=== PATIENT | female | born 1950 | race African-American/Black ===

== ENCOUNTER → 2016-08-28 | Outpatient (CLI) | payer MEDICARE, BC, OTHER ==
[2015-08-14 03:29] VITALS: BP 94/55
[~2016-08-28] MED LIST: AMLO5TAB2 PO; ASPI325T4 PO; ATOR20TA58 PO; CINA30TA PO; DIPH1TAB PO; DOCU100T5 PO; ERGO500012 PO; FAMO-63 PO; GABA300S PO; HYDR-2869 PO; INSU100C SQ; LATA2.5D3 OU; LEVO500T38 PO; LISI-334 PO; MONT10TA6 PO; OXYC-323 PO; SEVE800T9 PO; SIMV40TA3 PO; VIT1TABL57 PO
--- NOTE | 2016-08-28 11:57 | RAD ---
PROCEDURE MR of the right shoulder HISTORY Pain for 2 months. TECHNIQUE Standard noncontrast images are obtained. COMPARISON FINDINGS Acromioclavicular joint is degenerative. Complete full-thickness rupture of supraspinatus and infraspinatus tendons. Severe retraction to the superior labrum. Severe muscle atrophy and severe fatty infiltration. High-grade if not complete subscapularis tendon tear. Moderate subdeltoid bursal effusion. Severe glenohumeral joint primary osteoarthritis. Circumferential labral degeneration and tearing. Biceps tendon is not visualized. No acute fracture. Small joint effusion. Reactive cystic type change at the greater tuberosity. No evidence of aggressive bone destruction. No evidence of acute fracture. IMPRESSION 1. Massive retracted rotator cuff tear with severe atrophy. 2. Severe primary osteoarthritis of the glenohumeral joint with labral degeneration and tearing. 3. Nonvisualized biceps tendon. Electronically signed by: Gerald Dominguez MD (Aug 28, 2016 11:55:58)
== END | disposition home or self-care (01) ==
LOC: MRI 10:18
PROVIDERS: ATTEND Internal Medicine
DX: M75.81 Other shoulder lesions, right shoulder (principal); M19.011 Primary osteoarthritis, right shoulder
CPT/HCPCS: 73221

== ENCOUNTER → 2016-10-23 | Outpatient (CLI) | payer MEDICARE, BC, OTHER ==
[2015-08-14 03:29] VITALS: BP 94/55
--- NOTE | 2016-10-23 13:52 | RAD ---
DATE: 10/23/2016 EXAM: DIGITAL SCREEN BILAT W/CAD HISTORY: Screening. Note is made of the positive family history for breast malignancy COMPARISON: 06/21/2015 This study was interpreted with the benefit of Computerized Aided Detection (CAD). FINDINGS: The breast parenchyma is primarily fatty replaced. Breast parenchyma level density A.. There has not been a significant change in the appearance of the breasts compared to the previous exam IMPRESSION: Benign findings BI-RADS CATEGORY: 2 BENIGN FINDING(S) RECOMMENDED FOLLOW-UP: 12M 12 MONTH FOLLOW-UP PQRS compliance statement: Patient information was entered into a reminder system with a target due date 10/23/2017 for the next mammogram. Mammography is a sensitive method for finding small breast cancers, but it does not detect them all and is not a substitute for careful clinical examination. A negative mammogram does not negate a clinically suspicious finding and should not result in delay in biopsying a clinically suspicious abnormality. "Our facility is accredited by the [employer] Mammography Program."
== END | disposition home or self-care (01) ==
LOC: MAMMO 12:47
PROVIDERS: ATTEND Internal Medicine
DX: Z12.31 Encounter for screening mammogram for malignant neoplasm of breast (principal)
CPT/HCPCS: G0202; 77067

== ENCOUNTER 2017-05-31 10:31 | Inpatient (IN) | payer MEDICARE, BC, OTHER ==
[~2017-05-31] VITALS: Ht 157.5 cm; Wt 86.2 kg
[~2017-05-31 10:31] MED LIST changes: -ASPI325T4 PO; +ASPI325T8 PO; -CINA30TA PO; +CINA30TA2 PO; -ERGO500012 PO; +ERGO500027 PO; -LEVO500T38 PO; +LEVO500T59 PO
[2017-05-31 11:09] LABS: BASO % 0 % (0-3); EOS % 2 % (0-3); HEMOGLOBIN 11.1 g/dL (12.0-15.5); LYMPH # 0.8 x10^3/uL (1.0-4.8); LYMPH % 10 % (24-48); MEAN CORPUSCULAR HEMOGLOBIN 29 pg (25-35); MEAN CORPUSCULAR HGB CONC 32 g/dL (31-37); MEAN CORPUSCULAR VOLUME 90 fL (79-100); MONO % 10 % (0-9); NEUT % 78 % (31-73); PLATELET COUNT 253 x10^3/uL (140-400); RED CELL DISTRIBUTION WIDTH 16.5 % (11.5-14.5); WHITE BLOOD COUNT 7.9 x10^3/uL (4.0-11.0)
[2017-05-31 11:15] LABS: CALCIUM 8.8 mg/dL (8.5-10.1); CREATININE 5.2 mg/dL (0.6-1.0); GFR 10.1
--- NOTE | 2017-05-31 11:16 | RAD ---
INDICATION: AMS COMPARISON: August 10, 2015 FINDINGS: Single view of chest obtained. Hypoexpanded examination is again seen. Repeat demonstration of fullness of the right pulmonary hilum which could be from prominent pulmonary artery within the region or lymph nodes within the region but this is similar to remote priors. No definite new region of focal airspace consolidation. Degenerative changes shoulders. Calcific atherosclerosis. IMPRESSION: Hypoexpanded exam without definite new region of focal airspace consolidation.
[2017-05-31 11:21] LABS: ALBUMIN 3.4 g/dL (3.4-5.0); ALBUMIN/GLOBULIN RATIO 0.7 (1.0-1.7); MAGNESIUM 2.2 mg/dL (1.8-2.4); TOTAL BILIRUBIN 0.2 mg/dL (0.2-1.0); TOTAL PROTEIN 8.5 g/dL (6.4-8.2)
--- NOTE | 2017-05-31 11:24 | RAD ---
CT of the head without contrast, 05/31/2017: History: Altered mental status, dialysis patient Comparison is made to a study from 08/11/2015. There is mild cerebral atrophy. There are mild patchy lucencies in the deep white matter bilaterally compatible with chronic ischemic change. The ventricles are within normal limits in size. There is no shift of the midline structures. There is no evidence of acute intracranial hemorrhage or mass effect. IMPRESSION: 1. Chronic findings as described above. 2. No acute intracranial abnormality is detected. PQRS Compliance Statement: One or more of the following individualized dose reduction techniques were utilized for this examination: 1. Automated exposure control 2. Adjustment of the mA and/or kV according to patient size 3. Use of iterative reconstruction technique
--- NOTE | 2017-05-31 11:27 | EKG ---
[facility] [address] [place] [address] Test Date: 2017-05-31 Test Time: 10:46:03 Pat Name: IVAN REEVES Department: Room: Gender: F Nursery Supervisor: : 1950 Requested By: WATSON RUIZ Order Number: [id number] Reading MD: Zakiya Adan Measurements Intervals [place] Rate: 93 P: 96 IA: 170 QRS: -13 QRSD: 98 T: 121 QT: 382 QTc: 478 Interpretive Statements SINUS RHYTHM LEFT ATRIAL ABNORMALITY LEFTWARD AXIS T ABNORMALITY IN HIGH LATERAL LEADS ABNORMAL ECG Electronically Signed On 06-02-2017 16:25:56 CDT by Zakiya Adan
[2017-05-31 11:41] LABS: PROTHROMBIN TIME PATIENT 12.2 SEC (11.7-14.0)
[2017-05-31 12:13] LABS: BILIRUBIN,URINE NEGATIVE (NEG); GLUCOSE,URINE NEGATIVE (NEG); NITRITE,URINE NEGATIVE (NEG); PROTEIN,URINE 30 mg/dL (NEG-TRACE); UROBILINOGEN,URINE 0.2 mg/dL (0.2 mg/dL)
[2017-05-31] MEDS ORDERED: DEXTROSE 50% 25 GM / 50ML DISP.SYRIN. IV PRN ×2 (12:15→14:30)
[2017-05-31] MEDS ORDERED: ONDANSETRON PF 4 MG/2 ML VIAL. IV PRN (12:15)
[2017-05-31] MEDS ORDERED: DEXTROSE 50% 25 GM / 50ML DISP.SYRIN. IV ONE (12:15)
[2017-05-31] MEDS ORDERED: ACETAMINOPHEN 325 MG TABLET. PO PRN (12:15)
[2017-05-31 12:40] LABS: BACTERIA,URINE 0 /HPF (0-FEW); RBC,URINE OCC /HPF (0-2); SQUAMOUS EPITHELIAL CELL,UR OCC /LPF
[2017-05-31 12:58] LABS: HCO3 ABG 27 mmol/L (21-28); PCO2 ABG 45 mmHg (35-46); PO2 ABG 70 mmHg (65-108); SAT O2 ABG 93 % (92-99)
--- NOTE | 2017-05-31 14:17 | PHYS DOC ---
Past Medical History Past Medical History: Diabetes-Type II, Renal Failure, Other Additional Past Medical Histor: END STAGE RENAL DISEASE, HYPERPARATHYROIDISM; possible Hep C Past Surgical History: Other Additional Past Surgical Histo: DIALYSIS SHUNT LEFT ARM Alcohol Use: None Drug Use: None Adult General Chief Complaint Chief Complaint: ALTERED MENTAL STATUS HPI HPI Patient is a 66 year old female who presents with altered mental status. Patient brought by EMS from dialysis where she had just completed her usual Saturday/Saturday/Saturday treatment. She reportedly was very confused and difficult to keep awake. She was able to complete dialysis, as reported by EMS. They gave dextrose for glucose in the 70s. She has history of worsening dementia per her daughter who is present at the bedside. Patient denies any pain at this time, denies any recent illness. Reports compliance with dialysis. Her PCP is Dr. Jennings. She lives at home with her daughter & granddaughters. Review of Systems Review of Systems Constitutional: Denies fever or chills Eyes: Denies change in visual acuity HENT: Denies nasal congestion or sore throat Respiratory: Denies cough or shortness of breath Cardiovascular: Denies chest pain or edema GI: Denies abdominal pain, nausea, vomiting, bloody stools or diarrhea : Denies dysuria or hematuria Musculoskeletal: Denies back pain or joint pain Integument: Denies rash or skin lesions Neurologic: Reports altered mental status. Denies headache, focal weakness or sensory changes Allergies Allergies Allergies Coded Allergies Type Severity Reaction Last Updated Verified codeine Allergy Intermediate 08/10/15 Yes Physical Exam Physical Exam Constitutional: obese, no acute distress, non-toxic appearance. somnolent. HENT: Normocephalic, atraumatic, bilateral external ears normal, oropharynx moist, nose normal. Eyes: PERRLA 4 mm bilaterally, EOMI, conjunctiva normal, no discharge. Neck: supple, no stridor. Cardiovascular: RRR, no murmurs, no edema. Lungs & Thorax: LCTAB, no wheezing, no respiratory distress. Abdomen: soft, nontender, nondistended. Skin: Warm, dry, no erythema, no rash. Back: No tenderness. Extremities: No tenderness, no edema. Neurologic: oriented X 3, poorly following commands but no definite cranial nerve deficit or extremity numbness/weakness, no focal deficits noted. somnolent, falls asleep while answering questions or participating in exam. Psychologic: unable to assess due to clinical condition. Current Patient Data Vital Signs Vital Signs Date Time Temp Pulse Resp B/P (MAP) Pulse Ox O2 Delivery O2 Flow Rate FiO2 05/31/17 11:05 91 16 100 05/31/17 10:35 98.1 161/97 (118) Room Air 98.1 Lab Values Laboratory Tests Test 05/31/17 10:35 05/31/17 10:40 Glucose (Fingerstick) 84 mg/dL (70-99) White Blood Count 7.9 x10^3/uL (4.0-11.0) Red Blood Count 3.90 x10^6/uL (3.50-5.40) Hemoglobin 11.1 g/dL (12.0-15.5) L Hematocrit 35.0 % (36.0-47.0) L Mean Corpuscular Volume 90 fL (79-100) Mean Corpuscular Hemoglobin 29 pg (25-35) Mean Corpuscular Hemoglobin Concent 32 g/dL (31-37) Red Cell Distribution Width 16.5 % (11.5-14.5) H Platelet Count 253 x10^3/uL (140-400) Neutrophils (%) (Auto) 78 % (31-73) H Lymphocytes (%) (Auto) 10 % (24-48) L Monocytes (%) (Auto) 10 % (0-9) H Eosinophils (%) (Auto) 2 % (0-3) Basophils (%) (Auto) 0 % (0-3) Neutrophils # (Auto) 6.1 x10^3uL (1.8-7.7) Lymphocytes # (Auto) 0.8 x10^3/uL (1.0-4.8) L Monocytes # (Auto) 0.8 x10^3/uL (0.0-1.1) Eosinophils # (Auto) 0.2 x10^3/uL (0.0-0.7) Basophils # (Auto) 0.0 x10^3/uL (0.0-0.2) Prothrombin Time 12.2 SEC (11.7-14.0) Prothrombin Time INR 1.0 (0.8-1.1) Sodium Level 141 mmol/L (136-145) Potassium Level 4.0 mmol/L (3.5-5.1) Chloride Level 98 mmol/L (98-107) Carbon Dioxide Level 31 mmol/L (21-32) Anion Gap 12 (6-14) Blood Urea Nitrogen 41 mg/dL (7-20) H Creatinine 5.2 mg/dL (0.6-1.0) H Estimated GFR (Cockcroft-Gault) 10.1 BUN/Creatinine Ratio 8 (6-20) Glucose Level 109 mg/dL (70-99) H Calcium Level 8.8 mg/dL (8.5-10.1) Magnesium Level 2.2 mg/dL (1.8-2.4) Total Bilirubin 0.2 mg/dL (0.2-1.0) Aspartate Amino Transferase (AST) 25 U/L (15-37) Alanine Aminotransferase (ALT) 32 U/L (14-59) Alkaline Phosphatase 147 U/L (46-116) H Troponin I Quantitative 0.029 ng/mL (0.000-0.055) QM-Pwi-K-Type Natriuretic Peptide 2956 pg/mL (0-124) H Total Protein 8.5 g/dL (6.4-8.2) H Albumin 3.4 g/dL (3.4-5.0) Albumin/Globulin Ratio 0.7 (1.0-1.7) L Laboratory Tests 05/31/17 10:40 Laboratory Tests 05/31/17 10:40 EKG EKG interpreted by co: [id number]: NSr rate 93, no acute ST/T wave changes, QTc prolonged 478 ms, otherwise normal intervals, no ectopy, some artifact.[] Radiology/Procedures Radiology/Procedures PROCEDURE: CT HEAD WO CONTRAST CT of the head without contrast, 05/31/2017: History: Altered mental status, dialysis patient Comparison is made to a study from 08/11/2015. There is mild cerebral atrophy. There are mild patchy lucencies in the deep white matter bilaterally compatible with chronic ischemic change. The ventricles are within normal limits in size. There is no shift of the midline structures. There is no evidence of acute intracranial hemorrhage or mass effect. IMPRESSION: 1. Chronic findings as described above. 2. No acute intracranial abnormality is detected. PQRS Compliance Statement: One or more of the following individualized dose reduction techniques were utilized for this examination: 1. Automated exposure control 2. Adjustment of the mA and/or kV according to patient size 3. Use of iterative reconstruction technique DICTATED and SIGNED BY: RUTHANN ASH MD DATE: 05/31/177 PROCEDURE: CHEST AP ONLY INDICATION: AMS COMPARISON: August 10, 2015 FINDINGS: Single view of chest obtained. Hypoexpanded examination is again seen. Repeat demonstration of fullness of the right pulmonary hilum which could be from prominent pulmonary artery within the region or lymph nodes within the region but this is similar to remote priors. No definite new region of focal airspace consolidation. Degenerative changes shoulders. Calcific atherosclerosis. IMPRESSION: Hypoexpanded exam without definite new region of focal airspace consolidation. DICTATED and SIGNED BY: DAPHNEY JOAQUIN MD DATE: 05/31/175[] Course & Med Decision Making Course & Med Decision Making Pertinent Labs and Imaging studies reviewed. (See chart for details) The patient presented with altered mental status from dialysis. Vitals stable. No definite focal logic deficit however she is quite somnolent. No acute findings on head CT. No significant lab abnormalities or infection identified. ABG shows no evidence of hypercarbia. Question whether this could be sleep apnea. I did recommend admission to the hospital for further evaluation and treatment. The patient is very reluctant but cannot stay awake long enough to appropriately sign out against medical advice. Daughter agrees with admission. Discussed with Dr. Jennings who recommends giving D50 as she has had symptoms of hypoglycemia with glucose in normal range, would target 125 rather than 80s. D50 given here with essentially no change in her mental status. Will consult Dr. Landers of nephrology. She is being admitted in guarded condition. [] Dragon Disclaimer Dragon Disclaimer This electronic medical record was generated, in whole or in part, using a voice recognition dictation system. Departure Departure Impression: Primary Impression: Altered mental status Additional Impression: ESRD (end stage renal disease) on dialysis Disposition: ADMITTED INPATIENT Condition: GUARDED Referrals: ESPERANZA JENNINGS MD (PCP) Problem Qualifiers WATSON RUIZ MD May 31, 2017 14:16
[2017-05-31] MEDS ORDERED: DIPHENOXYLATE/ATROPINE TABLET. PO PRN (14:30)
[2017-05-31] MEDS: ERGOCALCIFEROL (VITAMIN D2) 50,000 UNIT CAPSULE. PO SCH ×2 (14:30→17:30)
[2017-05-31 15:00] VITALS: BP 134/52
[2017-05-31] MEDS: ASPIRIN 325 MG TABLET PO SCH (15:00)
--- NOTE | 2017-05-31 15:42 | PDOC ---
Provider Note Provider Note H&P dictated.#[id number]. can d/c home tomorrow if stable. ESPERANZA JENNINGS MD May 31, 2017 15:42
--- NOTE | 2017-05-31 16:13 | HP ---
ADMIT DATE: 05/31/2017 LOCATION: [facility]. REASON FOR ADMISSION TO THE HOSPITAL: Altered mental status. HISTORY OF PRESENT ILLNESS: The patient is a 66-year-old female patient, is on dialysis 3 times a week, Saturday, Saturday and Saturday. She also used to have diabetes, but she is off insulin now, and she just completed her usual dialysis. She is very confused, difficult to be aroused. The patient was brought in to the hospital, and her sugar was 70. She was given D50 by the paramedics. In the ER, her condition was slowly waxing and waning. She is able to be arousable, but going back to sleep. The patient was admitted to the hospital for overnight observation and treatment. PAST MEDICAL HISTORY: Has history of end-stage renal disease, hypertension, hyperlipidemia, legal blindness, history of insulin-dependent diabetes, now she is not on any medications. PAST SURGICAL HISTORY: AV shunt. She is blind in one eye. ALLERGIES: CODEINE. MEDICATIONS AT HOME: The patient is on Percocet 5/325 q.6, p.r.n., amlodipine 5 mg daily, aspirin 325 daily, atorvastatin 20 mg daily, Lomotil daily, vitamin D 50,000 units, Pepcid 20 mg daily, hydralazine 50 mg 3 times daily, lisinopril 20 mg daily, Singulair 10 mg daily, Renvela 3 times a day with meals and she is on latanoprost eyedrops, right eye. PERSONAL HISTORY: Used to be a smoker in the past, has not smoked recently. Denies alcohol or street drugs. She is on wheelchair level of activity and goes to dialysis. REVIEW OF SYMPTOMS: Denies any chest pain, shortness of breath. She is seen in the hospital at 3:00. She is back to her baseline, talking and joking around. VITAL SIGNS: At the time of admission shows a temperature 98, pulse 89, respirations 20, blood pressure 134/52, 100% on room air. HEENT: Head is atraumatic. The patient is blind in the right eye, had some vision in the left eye. Oral cavity: No congestion. NECK: Supple. Thyroid not enlarged. JVD not elevated. CHEST: Symmetrical. CARDIOVASCULAR: S1, S2. No murmurs. LUNGS: Clear to auscultation. No wheezing. ABDOMEN: Soft. Bowel sounds present. Had AV shunt in the left arm, thrill is present. Abdomen is soft, bowel sounds present, no mass palpable. EXTERNAL GENITALIA: No Knott. RECTAL: Deferred. EXTREMITIES: No calf tenderness, no edema. Pulses 1+. NEUROLOGIC: Cranial nerves intact. Power 5/5, moving all extremities. No abnormality was detected. LABORATORY DATA: Shows a white count of 8, hemoglobin 11, platelets 253. INR 1.0. Electrolytes show sodium 141, potassium 4, chloride 98, bicarbonate 31, BUN 41, creatinine 5.2, glucose 109, magnesium 2.2. LFTs were normal. INR 1.1. Urine negative for nitrites, any esterase. Chest x-ray was negative. CT head, chronic findings, no acute stroke or bleed. FINAL IMPRESSION: 1. Mental status probably due to hypoglycemia: The patient is improving. 2. End-stage renal disease, on hemodialysis. 3. Insulin-dependent diabetes in the past. The patient has been off insulin for sometime now. 4. Hypertension. 5. Hyperlipidemia. 6. Legally blind. 7. On chronic pain meds PLAN: At this time, admit to hospital, neuro checks and see how she does. If she is awake and doing well, could be discharged tomorrow. ESPERANZA JENNINGS MD DR: BRITTANI/macarena JOB#: [id number] / [id number] SHARAN
[2017-05-31] MEDS: FAMOTIDINE 20 MG TABLET. PO SCH (17:29)
[2017-05-31] MEDS: amLODIPine BESYLATE 5 MG TABLET PO SCH (17:29)
[2017-05-31] MEDS: LISINOPRIL 20 MG TABLET PO SCH (17:30)
[2017-05-31] MEDS ORDERED: LATANOPROST 0.005% OPHTH SOLUTION 2.5ML BOTTLE. OU SCH (18:00)
[2017-05-31 19:34] VITALS: BP 111/58
[2017-05-31] MEDS ORDERED: oxyCODONE/APAP 5/325 1 TAB TABLET PO PRN (19:45)
[2017-05-31] MEDS: GABAPENTIN 300 MG CAPSULE. PO SCH (19:47)
[2017-05-31] MEDS: SEVELAMER CARBONATE 800 MG TABLET. PO SCH (19:50)
[2017-05-31] MEDS ORDERED: ATORVASTATIN CALCIUM 20 MG TABLET PO SCH (21:00)
[2017-05-31 23:00] VITALS: BP 117/51
[2017-06-01 03:00] VITALS: BP 134/69
[2017-06-01 05:16] LABS: BASO % 1 % (0-3); EOS % 4 % (0-3); HEMATOCRIT 31.4 % (36.0-47.0); HEMOGLOBIN 10.2 g/dL (12.0-15.5); LYMPH # 1.3 x10^3/uL (1.0-4.8); LYMPH % 21 % (24-48); MEAN CORPUSCULAR HEMOGLOBIN 29 pg (25-35); MEAN CORPUSCULAR HGB CONC 33 g/dL (31-37); MEAN CORPUSCULAR VOLUME 89 fL (79-100); MONO % 15 % (0-9); NEUT % 60 % (31-73); PLATELET COUNT 214 x10^3/uL (140-400); RED BLOOD COUNT 3.54 x10^6/uL (3.50-5.40); RED CELL DISTRIBUTION WIDTH 16.6 % (11.5-14.5); WHITE BLOOD COUNT 6.2 x10^3/uL (4.0-11.0)
[2017-06-01 05:53] LABS: CALCIUM 8.4 mg/dL (8.5-10.1); CREATININE 6.9 mg/dL (0.6-1.0); GFR 7.3; POTASSIUM 4.7 mmol/L (3.5-5.1)
[2017-06-01 07:00] VITALS: BP 141/69
[2017-06-01] MEDS: GABAPENTIN 300 MG CAPSULE. PO SCH (08:38)
[2017-06-01] MEDS: FAMOTIDINE 20 MG TABLET. PO SCH (08:39)
[2017-06-01] MEDS: LISINOPRIL 20 MG TABLET PO SCH (08:39)
[2017-06-01] MEDS: SEVELAMER CARBONATE 800 MG TABLET. PO SCH (08:39)
[2017-06-01] MEDS: ASPIRIN 325 MG TABLET PO SCH (08:39)
[2017-06-01] MEDS: amLODIPine BESYLATE 5 MG TABLET PO SCH (08:39)
[2017-06-01] MEDS ORDERED: MONTELUKAST SODIUM 10 MG TABLET. PO SCH (09:00)
[2017-06-01 11:00] VITALS: BP 113/53
--- NOTE | 2017-06-01 11:44 | PDOC ---
EMILY SANTIAGO ELIGIBILITY ANALYST 06/01/17 1144: IM PROGRESS NOTES- Subjective Subjective alert, wants to go home Objective Objective alert appropriate Vitals Vital Signs Date Time Temp Pulse Resp B/P (MAP) Pulse Ox O2 Delivery O2 Flow Rate FiO2 06/01/17 11:00 97.8 84 20 113/53 (73) 94 Room Air 97.8 Physical Exam Physical Exam PHYSICAL EXAM: GENERAL: alert, no acute distress, HEENT: Head is atraumatic. The patient is blind in the right eye, had some vision in the left eye. NECK: Supple. CARDIOVASCULAR: S1, S2. No murmurs. LUNGS: Clear to auscultation. No wheezing. ABDOMEN: Soft. Bowel sounds present. non tender EXTREMITIES: no edema. Had AV shunt in the left arm, thrill is present. NEUROLOGIC: no acute neurological deficit noted Labs Laboratory Tests Test 05/31/17 10:35 05/31/17 10:40 05/31/17 12:00 05/31/17 12:39 Glucose (Fingerstick) 84 mg/dL (70-99) White Blood Count 7.9 x10^3/uL (4.0-11.0) Red Blood Count 3.90 x10^6/uL (3.50-5.40) Hemoglobin 11.1 g/dL (12.0-15.5) Hematocrit 35.0 % (36.0-47.0) Mean Corpuscular Volume 90 fL (79-100) Mean Corpuscular Hemoglobin 29 pg (25-35) Mean Corpuscular Hemoglobin Concent 32 g/dL (31-37) Red Cell Distribution Width 16.5 % (11.5-14.5) Platelet Count 253 x10^3/uL (140-400) Neutrophils (%) (Auto) 78 % (31-73) Lymphocytes (%) (Auto) 10 % (24-48) Monocytes (%) (Auto) 10 % (0-9) Eosinophils (%) (Auto) 2 % (0-3) Basophils (%) (Auto) 0 % (0-3) Neutrophils # (Auto) 6.1 x10^3uL (1.8-7.7) Lymphocytes # (Auto) 0.8 x10^3/uL (1.0-4.8) Monocytes # (Auto) 0.8 x10^3/uL (0.0-1.1) Eosinophils # (Auto) 0.2 x10^3/uL (0.0-0.7) Basophils # (Auto) 0.0 x10^3/uL (0.0-0.2) Prothrombin Time 12.2 SEC (11.7-14.0) Prothromb Time International Ratio 1.0 (0.8-1.1) Sodium Level 141 mmol/L (136-145) Potassium Level 4.0 mmol/L (3.5-5.1) Chloride Level 98 mmol/L (98-107) Carbon Dioxide Level 31 mmol/L (21-32) Anion Gap 12 (6-14) Blood Urea Nitrogen 41 mg/dL (7-20) Creatinine 5.2 mg/dL (0.6-1.0) Estimated GFR (Cockcroft-Gault) 10.1 BUN/Creatinine Ratio 8 (6-20) Glucose Level 109 mg/dL (70-99) Calcium Level 8.8 mg/dL (8.5-10.1) Magnesium Level 2.2 mg/dL (1.8-2.4) Total Bilirubin 0.2 mg/dL (0.2-1.0) Aspartate Amino Transf (AST/SGOT) 25 U/L (15-37) Alanine Aminotransferase (ALT/SGPT) 32 U/L (14-59) Alkaline Phosphatase 147 U/L (46-116) Troponin I Quantitative 0.029 ng/mL (0.000-0.055) TT-Pul-V-Type Natriuretic Peptide 2956 pg/mL (0-124) Total Protein 8.5 g/dL (6.4-8.2) Albumin 3.4 g/dL (3.4-5.0) Albumin/Globulin Ratio 0.7 (1.0-1.7) Urine Collection Type Unknown Urine Color Yellow Urine Clarity Clear Urine pH 7.0 Urine Specific Leiter 1.015 Urine Protein 30 mg/dL (NEG-TRACE) Urine Glucose (UA) Negative mg/dL (NEG) Urine Ketones (Stick) Negative mg/dL (NEG) Urine Blood Negative (NEG) Urine Nitrite Negative (NEG) Urine Bilirubin Negative (NEG) Urine Urobilinogen Dipstick 0.2 mg/dL (0.2 mg/dL) Urine Leukocyte Esterase Negative (NEG) Urine RBC Occ /HPF (0-2) Urine WBC 1-4 /HPF (0-4) Urine Squamous Epithelial Cells Occ /LPF Urine Bacteria 0 /HPF (0-FEW) Urine Mucus Slight /LPF O2 Saturation 93 % (92-99) Arterial Blood pH 7.40 (7.35-7.45) Arterial Blood pCO2 at Patient Temp 45 mmHg (35-46) Arterial Blood pO2 at Patient Temp 70 mmHg (65-108) Arterial Blood HCO3 27 mmol/L (21-28) Arterial Blood Base Excess 2 mmol/L (-3-3) FiO2 21.0 Test 05/31/17 16:38 05/31/17 21:16 06/01/17 04:55 06/01/17 07:28 Glucose (Fingerstick) 100 mg/dL (70-99) 140 mg/dL (70-99) 74 mg/dL (70-99) White Blood Count 6.2 x10^3/uL (4.0-11.0) Red Blood Count 3.54 x10^6/uL (3.50-5.40) Hemoglobin 10.2 g/dL (12.0-15.5) Hematocrit 31.4 % (36.0-47.0) Mean Corpuscular Volume 89 fL (79-100) Mean Corpuscular Hemoglobin 29 pg (25-35) Mean Corpuscular Hemoglobin Concent 33 g/dL (31-37) Red Cell Distribution Width 16.6 % (11.5-14.5) Platelet Count 214 x10^3/uL (140-400) Neutrophils (%) (Auto) 60 % (31-73) Lymphocytes (%) (Auto) 21 % (24-48) Monocytes (%) (Auto) 15 % (0-9) Eosinophils (%) (Auto) 4 % (0-3) Basophils (%) (Auto) 1 % (0-3) Neutrophils # (Auto) 3.7 x10^3uL (1.8-7.7) Lymphocytes # (Auto) 1.3 x10^3/uL (1.0-4.8) Monocytes # (Auto) 0.9 x10^3/uL (0.0-1.1) Eosinophils # (Auto) 0.2 x10^3/uL (0.0-0.7) Basophils # (Auto) 0.0 x10^3/uL (0.0-0.2) Sodium Level 141 mmol/L (136-145) Potassium Level 4.7 mmol/L (3.5-5.1) Chloride Level 102 mmol/L (98-107) Carbon Dioxide Level 27 mmol/L (21-32) Anion Gap 12 (6-14) Blood Urea Nitrogen 59 mg/dL (7-20) Creatinine 6.9 mg/dL (0.6-1.0) Estimated GFR (Cockcroft-Gault) 7.3 Glucose Level 81 mg/dL (70-99) Calcium Level 8.4 mg/dL (8.5-10.1) Test 06/01/17 11:21 Glucose (Fingerstick) 78 mg/dL (70-99) Laboratory Tests Test 05/31/17 12:00 05/31/17 12:39 05/31/17 16:38 05/31/17 21:16 Urine Collection Type Unknown Urine Color Yellow Urine Clarity Clear Urine pH 7.0 Urine Specific Leiter 1.015 Urine Protein 30 mg/dL (NEG-TRACE) Urine Glucose (UA) Negative mg/dL (NEG) Urine Ketones (Stick) Negative mg/dL (NEG) Urine Blood Negative (NEG) Urine Nitrite Negative (NEG) Urine Bilirubin Negative (NEG) Urine Urobilinogen Dipstick 0.2 mg/dL (0.2 mg/dL) Urine Leukocyte Esterase Negative (NEG) Urine RBC Occ /HPF (0-2) Urine WBC 1-4 /HPF (0-4) Urine Squamous Epithelial Cells Occ /LPF Urine Bacteria 0 /HPF (0-FEW) Urine Mucus Slight /LPF O2 Saturation 93 % (92-99) Arterial Blood pH 7.40 (7.35-7.45) Arterial Blood pCO2 at Patient Temp 45 mmHg (35-46) Arterial Blood pO2 at Patient Temp 70 mmHg (65-108) Arterial Blood HCO3 27 mmol/L (21-28) Arterial Blood Base Excess 2 mmol/L (-3-3) FiO2 21.0 Glucose (Fingerstick) 100 mg/dL (70-99) 140 mg/dL (70-99) Test 06/01/17 04:55 06/01/17 07:06/01/17 11:21 White Blood Count 6.2 x10^3/uL (4.0-11.0) Red Blood Count 3.54 x10^6/uL (3.50-5.40) Hemoglobin 10.2 g/dL (12.0-15.5) Hematocrit 31.4 % (36.0-47.0) Mean Corpuscular Volume 89 fL (79-100) Mean Corpuscular Hemoglobin 29 pg (25-35) Mean Corpuscular Hemoglobin Concent 33 g/dL (31-37) Red Cell Distribution Width 16.6 % (11.5-14.5) Platelet Count 214 x10^3/uL (140-400) Neutrophils (%) (Auto) 60 % (31-73) Lymphocytes (%) (Auto) 21 % (24-48) Monocytes (%) (Auto) 15 % (0-9) Eosinophils (%) (Auto) 4 % (0-3) Basophils (%) (Auto) 1 % (0-3) Neutrophils # (Auto) 3.7 x10^3uL (1.8-7.7) Lymphocytes # (Auto) 1.3 x10^3/uL (1.0-4.8) Monocytes # (Auto) 0.9 x10^3/uL (0.0-1.1) Eosinophils # (Auto) 0.2 x10^3/uL (0.0-0.7) Basophils # (Auto) 0.0 x10^3/uL (0.0-0.2) Sodium Level 141 mmol/L (136-145) Potassium Level 4.7 mmol/L (3.5-5.1) Chloride Level 102 mmol/L (98-107) Carbon Dioxide Level 27 mmol/L (21-32) Anion Gap 12 (6-14) Blood Urea Nitrogen 59 mg/dL (7-20) Creatinine 6.9 mg/dL (0.6-1.0) Estimated GFR (Cockcroft-Gault) 7.3 Glucose Level 81 mg/dL (70-99) Calcium Level 8.4 mg/dL (8.5-10.1) Glucose (Fingerstick) 74 mg/dL (70-99) 78 mg/dL (70-99) Meds Current Medications Acetaminophen (Tylenol) 650 mg PRN Q4HRS PRN PO FEVER Last administered on 23:22; Start 05/31/17 at 12:15; Stop 06/01/17 at 12:14 Amlodipine Besylate (Norvasc) 5 mg DAILY PO Last administered on 06/01/17 08: 39; Start 05/31/17 at 15:00 Aspirin (Brigdette Aspirin) 325 mg DAILY PO Last administered on 06/01/17 08:39; Start 05/31/17 at 15:00 Atorvastatin Calcium (Lipitor) 20 mg QHS PO Last administered on 05/31/17 19: 47; Start 05/31/17 at 21:00 Dextrose (Dextrose 50%-Water Syringe) 12.5 gm PRN Q15MIN PRN IV SEE COMMENTS; Start 05/31/17 at 12:15 Dextrose (Dextrose 50%-Water Syringe) 12.5 gm PRN Q15MIN PRN IV SEE COMMENTS; Start 05/31/17 at 14:30 Dextrose (Dextrose 50%-Water Syringe) 25 gm 1X ONCE IV Last administered on 11:45; Start 05/31/17 at 12:15; Stop 05/31/17 at 12:16; Status DC Diphenoxylate HCl/ Atropine (Lomotil) 1 tab PRN BID PRN PO DIARRHEA; Start at 14:30 Ergocalciferol (Vitamin D2) 50,000 unit QFR PO Last administered on 05/31/17 17:30; Start 05/31/17 at 14:30 Famotidine (Pepcid) 20 mg DAILY PO Last administered on 06/01/17 08:39; Start 05/31/17 at 15:00 Gabapentin (Neurontin) 300 mg TID PO Last administered on 06/01/17 08:38; Start 05/31/17 at 21:00 Hydralazine HCl (Apresoline) 100 mg TID PO Last administered on 06/01/17 08: 38; Start 05/31/17 at 21:00 Latanoprost (Xalatan) 1 drop QPM OU Last administered on 05/31/17 19:30; Start 05/31/17 at 18:00 Lisinopril (Prinivil) 20 mg DAILY PO Last administered on 06/01/17 08:39; Start 05/31/17 at 15:00 Montelukast Sodium (Singulair) 10 mg DAILY PO Last administered on 06/01/17 08:39; Start 06/01/17 at 09:00 Ondansetron HCl (Zofran) 4 mg PRN Q8HRS PRN IV NAUSEA/VOMITING; Start at 12:15; Stop 06/01/17 at 12:14 Oxycodone/ Acetaminophen (Percocet 5/325) 2 tab PRN Q6HRS PRN PO PAIN Last administered on 05/31/17 19:48; Start 05/31/17 at 19:45 Sevelamer Carbonate (Renvela) 800 mg TID PO Last administered on 06/01/17 08: 39; Start 05/31/17 at 21:00 Assessment Assessment 1. Metabolic encephalopathy secondary to hypoglycemia -resolved 2. End-stage renal disease, on hemodialysis. 3. Insulin-dependent diabetes in the past. The patient has been off insulin for sometime now. 4. Hypertension. 5. Hyperlipidemia. 6. Legally blind. PLAN: 06/01/17 metabolic encephalopathy - MS at baseline DM II diet control HTN controlled continue current med ESRD continue HD MWF Plan Plan For more details regarding further plans, please refer to the orders. YAZ STEWART MD 06/01/17 1145: IM PROGRESS NOTES- Assessment Assessment Mental status is better. ok to discharge. The patient was seen and examined by me. Chart reviewed and plan of care formulated. Discussed with, reviewed and agree with [employer]'s notes, plan of care and orders with modifications as necessary. Discharge Management - 35 minutes. EMILY SANTIAGO APRN Jun 01, 2017 11:44 YAZ STEWART MD Jun 01, 2017 11:45
--- NOTE | 2017-06-01 11:45 | DISCH ---
DISCHARGE INSTRUCTIONS Condition on Discharge Condition on Discharge: Stable Activity After Discharge Activity Instructions for Disc: Activity as tolerated Diet after Discharge Diet after Discharge: Cardiac (do not skip meals ) Additional Diet Restrictions: Renal dialysis Checks after Discharge DC Comment: check blood sugar daily in the morning Contacting the DRAsael after DC Call your doctor for: Concerns you may have Follow-Up Follow up with: Dr. Gonzalez in 3-5 days EMILY SANTIAGO APRN Jun 01, 2017 11:45
--- NOTE | 2017-06-01 13:33 | PDOC ---
PROGRESS NOTES Subjective Subjective Pt D/clayton Before I could see her; I was not informed of D/C Objective Objective Vital Signs Date Time Temp Pulse Resp B/P (MAP) Pulse Ox O2 Delivery O2 Flow Rate FiO2 06/01/17 11:00 97.8 84 20 113/53 (73) 94 Room Air 97.8 Assessment Assessment Problems Medical Problems: (1) Altered mental status Status: Acute (2) ESRD (end stage renal disease) on dialysis Status: Acute Comment Review of Relevant I have reviewed the following items jason (where applicable) has been applied. Labs Laboratory Tests Test 05/31/17 10:35 05/31/17 10:40 05/31/17 12:00 05/31/17 12:39 Glucose (Fingerstick) 84 mg/dL (70-99) White Blood Count 7.9 x10^3/uL (4.0-11.0) Red Blood Count 3.90 x10^6/uL (3.50-5.40) Hemoglobin 11.1 g/dL (12.0-15.5) Hematocrit 35.0 % (36.0-47.0) Mean Corpuscular Volume 90 fL (79-100) Mean Corpuscular Hemoglobin 29 pg (25-35) Mean Corpuscular Hemoglobin Concent 32 g/dL (31-37) Red Cell Distribution Width 16.5 % (11.5-14.5) Platelet Count 253 x10^3/uL (140-400) Neutrophils (%) (Auto) 78 % (31-73) Lymphocytes (%) (Auto) 10 % (24-48) Monocytes (%) (Auto) 10 % (0-9) Eosinophils (%) (Auto) 2 % (0-3) Basophils (%) (Auto) 0 % (0-3) Neutrophils # (Auto) 6.1 x10^3uL (1.8-7.7) Lymphocytes # (Auto) 0.8 x10^3/uL (1.0-4.8) Monocytes # (Auto) 0.8 x10^3/uL (0.0-1.1) Eosinophils # (Auto) 0.2 x10^3/uL (0.0-0.7) Basophils # (Auto) 0.0 x10^3/uL (0.0-0.2) Prothrombin Time 12.2 SEC (11.7-14.0) Prothromb Time International Ratio 1.0 (0.8-1.1) Sodium Level 141 mmol/L (136-145) Potassium Level 4.0 mmol/L (3.5-5.1) Chloride Level 98 mmol/L (98-107) Carbon Dioxide Level 31 mmol/L (21-32) Anion Gap 12 (6-14) Blood Urea Nitrogen 41 mg/dL (7-20) Creatinine 5.2 mg/dL (0.6-1.0) Estimated GFR (Cockcroft-Gault) 10.1 BUN/Creatinine Ratio 8 (6-20) Glucose Level 109 mg/dL (70-99) Calcium Level 8.8 mg/dL (8.5-10.1) Magnesium Level 2.2 mg/dL (1.8-2.4) Total Bilirubin 0.2 mg/dL (0.2-1.0) Aspartate Amino Transf (AST/SGOT) 25 U/L (15-37) Alanine Aminotransferase (ALT/SGPT) 32 U/L (14-59) Alkaline Phosphatase 147 U/L (46-116) Troponin I Quantitative 0.029 ng/mL (0.000-0.055) VV-Egt-F-Type Natriuretic Peptide 2956 pg/mL (0-124) Total Protein 8.5 g/dL (6.4-8.2) Albumin 3.4 g/dL (3.4-5.0) Albumin/Globulin Ratio 0.7 (1.0-1.7) Urine Collection Type Unknown Urine Color Yellow Urine Clarity Clear Urine pH 7.0 Urine Specific Harwood 1.015 Urine Protein 30 mg/dL (NEG-TRACE) Urine Glucose (UA) Negative mg/dL (NEG) Urine Ketones (Stick) Negative mg/dL (NEG) Urine Blood Negative (NEG) Urine Nitrite Negative (NEG) Urine Bilirubin Negative (NEG) Urine Urobilinogen Dipstick 0.2 mg/dL (0.2 mg/dL) Urine Leukocyte Esterase Negative (NEG) Urine RBC Occ /HPF (0-2) Urine WBC 1-4 /HPF (0-4) Urine Squamous Epithelial Cells Occ /LPF Urine Bacteria 0 /HPF (0-FEW) Urine Mucus Slight /LPF O2 Saturation 93 % (92-99) Arterial Blood pH 7.40 (7.35-7.45) Arterial Blood pCO2 at Patient Temp 45 mmHg (35-46) Arterial Blood pO2 at Patient Temp 70 mmHg (65-108) Arterial Blood HCO3 27 mmol/L (21-28) Arterial Blood Base Excess 2 mmol/L (-3-3) FiO2 21.0 Test 05/31/17 16:38 05/31/17 21:16 06/01/17 04:55 06/01/17 07:28 Glucose (Fingerstick) 100 mg/dL (70-99) 140 mg/dL (70-99) 74 mg/dL (70-99) White Blood Count 6.2 x10^3/uL (4.0-11.0) Red Blood Count 3.54 x10^6/uL (3.50-5.40) Hemoglobin 10.2 g/dL (12.0-15.5) Hematocrit 31.4 % (36.0-47.0) Mean Corpuscular Volume 89 fL (79-100) Mean Corpuscular Hemoglobin 29 pg (25-35) Mean Corpuscular Hemoglobin Concent 33 g/dL (31-37) Red Cell Distribution Width 16.6 % (11.5-14.5) Platelet Count 214 x10^3/uL (140-400) Neutrophils (%) (Auto) 60 % (31-73) Lymphocytes (%) (Auto) 21 % (24-48) Monocytes (%) (Auto) 15 % (0-9) Eosinophils (%) (Auto) 4 % (0-3) Basophils (%) (Auto) 1 % (0-3) Neutrophils # (Auto) 3.7 x10^3uL (1.8-7.7) Lymphocytes # (Auto) 1.3 x10^3/uL (1.0-4.8) Monocytes # (Auto) 0.9 x10^3/uL (0.0-1.1) Eosinophils # (Auto) 0.2 x10^3/uL (0.0-0.7) Basophils # (Auto) 0.0 x10^3/uL (0.0-0.2) Sodium Level 141 mmol/L (136-145) Potassium Level 4.7 mmol/L (3.5-5.1) Chloride Level 102 mmol/L (98-107) Carbon Dioxide Level 27 mmol/L (21-32) Anion Gap 12 (6-14) Blood Urea Nitrogen 59 mg/dL (7-20) Creatinine 6.9 mg/dL (0.6-1.0) Estimated GFR (Cockcroft-Gault) 7.3 Glucose Level 81 mg/dL (70-99) Calcium Level 8.4 mg/dL (8.5-10.1) Test 06/01/17 11:21 Glucose (Fingerstick) 78 mg/dL (70-99) Laboratory Tests Test 05/31/17 16:38 05/31/17 21:16 06/01/17 04:55 06/01/17 07:28 Glucose (Fingerstick) 100 mg/dL (70-99) 140 mg/dL (70-99) 74 mg/dL (70-99) White Blood Count 6.2 x10^3/uL (4.0-11.0) Red Blood Count 3.54 x10^6/uL (3.50-5.40) Hemoglobin 10.2 g/dL (12.0-15.5) Hematocrit 31.4 % (36.0-47.0) Mean Corpuscular Volume 89 fL (79-100) Mean Corpuscular Hemoglobin 29 pg (25-35) Mean Corpuscular Hemoglobin Concent 33 g/dL (31-37) Red Cell Distribution Width 16.6 % (11.5-14.5) Platelet Count 214 x10^3/uL (140-400) Neutrophils (%) (Auto) 60 % (31-73) Lymphocytes (%) (Auto) 21 % (24-48) Monocytes (%) (Auto) 15 % (0-9) Eosinophils (%) (Auto) 4 % (0-3) Basophils (%) (Auto) 1 % (0-3) Neutrophils # (Auto) 3.7 x10^3uL (1.8-7.7) Lymphocytes # (Auto) 1.3 x10^3/uL (1.0-4.8) Monocytes # (Auto) 0.9 x10^3/uL (0.0-1.1) Eosinophils # (Auto) 0.2 x10^3/uL (0.0-0.7) Basophils # (Auto) 0.0 x10^3/uL (0.0-0.2) Sodium Level 141 mmol/L (136-145) Potassium Level 4.7 mmol/L (3.5-5.1) Chloride Level 102 mmol/L (98-107) Carbon Dioxide Level 27 mmol/L (21-32) Anion Gap 12 (6-14) Blood Urea Nitrogen 59 mg/dL (7-20) Creatinine 6.9 mg/dL (0.6-1.0) Estimated GFR (Cockcroft-Gault) 7.3 Glucose Level 81 mg/dL (70-99) Calcium Level 8.4 mg/dL (8.5-10.1) Test 06/01/17 11:21 Glucose (Fingerstick) 78 mg/dL (70-99) Medications Current Medications Dextrose (Dextrose 50%-Water Syringe) 25 gm 1X ONCE IV Last administered on 11:45; Start 05/31/17 at 12:15; Stop 05/31/17 at 12:16; Status DC Ondansetron HCl (Zofran) 4 mg PRN Q8HRS PRN IV NAUSEA/VOMITING; Start at 12:15; Stop 06/01/17 at 12:14; Status DC Acetaminophen (Tylenol) 650 mg PRN Q4HRS PRN PO FEVER Last administered on 23:22; Start 05/31/17 at 12:15; Stop 06/01/17 at 12:14; Status DC Dextrose (Dextrose 50%-Water Syringe) 12.5 gm PRN Q15MIN PRN IV SEE COMMENTS; Start 05/31/17 at 12:15 Amlodipine Besylate (Norvasc) 5 mg DAILY PO Last administered on 06/01/17 08: 39; Start 05/31/17 at 15:00 Aspirin (Bridgette Aspirin) 325 mg DAILY PO Last administered on 06/01/17 08:39; Start 05/31/17 at 15:00 Atorvastatin Calcium (Lipitor) 20 mg QHS PO Last administered on 05/31/17 19: 47; Start 05/31/17 at 21:00 Diphenoxylate HCl/ Atropine (Lomotil) 1 tab PRN BID PRN PO DIARRHEA; Start at 14:30 Ergocalciferol (Vitamin D2) 50,000 unit QFR PO Last administered on 05/31/17 17:30; Start 05/31/17 at 14:30 Famotidine (Pepcid) 20 mg DAILY PO Last administered on 06/01/17 08:39; Start 05/31/17 at 15:00 Hydralazine HCl (Apresoline) 100 mg TID PO Last administered on 06/01/17 08: 38; Start 05/31/17 at 21:00 Latanoprost (Xalatan) 1 drop QPM OU Last administered on 05/31/17 19:30; Start 05/31/17 at 18:00 Lisinopril (Prinivil) 20 mg DAILY PO Last administered on 06/01/17 08:39; Start 05/31/17 at 15:00 Montelukast Sodium (Singulair) 10 mg DAILY PO Last administered on 06/01/17 08:39; Start 06/01/17 at 09:00 Sevelamer Carbonate (Renvela) 800 mg TID PO Last administered on 06/01/17 08: 39; Start 05/31/17 at 21:00 Dextrose (Dextrose 50%-Water Syringe) 12.5 gm PRN Q15MIN PRN IV SEE COMMENTS; Start 05/31/17 at 14:30 Oxycodone/ Acetaminophen (Percocet 5/325) 2 tab PRN Q6HRS PRN PO PAIN Last administered on 05/31/17 19:48; Start 05/31/17 at 19:45 Gabapentin (Neurontin) 300 mg TID PO Last administered on 06/01/17 08:38; Start 05/31/17 at 21:00 Active Scripts Active Atorvastatin Calcium 20 Mg Tablet 20 Mg PO QHS 30 Days Amlodipine Besylate 5 Mg Tablet 5 Mg PO DAILY Lisinopril 20 Mg Tablet 20 Mg PO DAILY Latanoprost 2.5 Ml Drops 1 Drop OU QPM Vitamin D2 (Ergocalciferol (Vitamin D2)) 50,000 Unit Capsule 50,000 Unit PO FR Hydralazine Hcl 50 Mg Tablet 100 Mg PO TID Reported Singulair Tablet (Montelukast Sodium) 10 Mg Tablet 10 Mg PO Renvela (Sevelamer Carbonate) 800 Mg Tablet 800 Mg PO [id number] Lomotil Tablet (Diphenoxylate Hcl/Atropine) 1 Each Tablet Unknown Dose PO Percocet 5-325 Mg Tablet (Oxycodone/Acetaminophen) 1 Each Tablet 2 Tab PO Q 6 HRS PRN Pepcid (Famotidine) 20 Mg Tablet 20 Mg PO Gabapentin Oral Solution (Gabapentin) 300 Mg/6 Ml Solution 300 Mg PO TID Nephro-Alexandra Rx Tablet (Vit B Cmplx 3/Fa/Vit C/Biotin) 1 Each Tablet 1 Each PO Aspirin 325 Mg Tablet 325 Mg PO Vitals/I & O Vital Sign - Last 24 Hours 05/31/17 05/31/17 05/31/17 05/31/17 15:00 15:00 17:29 17:30 Temp 98.1 98.1 98.1 98.1 Pulse 89 89 89 89 Resp 20 20 B/P (MAP) 134/52 (79) 134/52 (79) 134/52 134/52 Pulse Ox 100 100 O2 Delivery Room Air Room Air 05/31/17 05/31/17 05/31/17 05/31/17 18:02 19:34 19:48 19:49 Temp 98.5 98.5 Pulse 91 91 Resp 20 20 B/P (MAP) 111/58 (75) 111/58 Pulse Ox 99 O2 Delivery Room Air Room Air Room Air 05/31/17 05/31/17 05/31/17 06/01/17 19:56 20:58 23:00 03:00 Temp 97.7 97.9 97.7 97.9 Pulse 78 78 Resp 18 20 20 B/P (MAP) 117/51 (73) 134/69 (90) Pulse Ox 90 99 O2 Delivery Room Air Room Air Room Air Room Air 06/01/17 06/01/17 06/01/17 06/01/17 07:00 08:05 08:38 08:39 Temp 99.1 99.1 Pulse 81 81 81 Resp 20 B/P (MAP) 141/69 (93) 141/69 141/69 Pulse Ox 97 O2 Delivery Room Air Room Air 06/01/17 06/01/17 08:39 11:00 Temp 97.8 97.8 Pulse 81 84 Resp 20 B/P (MAP) 141/69 113/53 (73) Pulse Ox 94 O2 Delivery Room Air AURELIA KLEIN MD Jun 01, 2017 13:33
== END 2017-06-01 13:47 | disposition home or self-care (01) | DRG 637 ==
LOC: ER 10:31 → 6 SOUTH 11:32
PROVIDERS: ADMIT Internal Medicine; ATTEND Internal Medicine
DX: E11.649 Type 2 diabetes mellitus with hypoglycemia without coma (principal); G93.41 Metabolic encephalopathy; E11.22 Type 2 diabetes mellitus with diabetic chronic kidney disease; I12.0 Hypertensive chronic kidney disease with stage 5 chronic kidney disease or end stage renal disease; R41.82 Altered mental status, unspecified; N18.6 End stage renal disease; E78.5 Hyperlipidemia, unspecified; F03.90 Unspecified dementia, unspecified severity, without behavioral disturbance, psychotic disturbance, mood disturbance, and anxiety; H54.40 Blindness, one eye, unspecified eye; E21.3 Hyperparathyroidism, unspecified; Z99.2 Dependence on renal dialysis; Z79.4 Long term (current) use of insulin; Z88.6 Allergy status to analgesic agent
CPT/HCPCS: 36415; 36600; 70450; 71010; 80048; 80053; 81001; 82805; 82962; 83735; 83880; 84484; 85025; 85610; 93005; 96374; 99406; J7042; 99285-25

== ENCOUNTER 2017-07-15 10:20 | Inpatient (IN) | payer MEDICARE, BC ==
[~2017-07-15] VITALS: Ht 157.5 cm; Wt 84.9 kg
[~2017-07-15 10:20] MED LIST changes: +CYCL1DRO EACHEYE
--- NOTE | 2017-07-15 10:32 | PHYS DOC ---
Past Medical History Past Medical History: Diabetes-Type II, Renal Failure, Other Additional Past Medical Histor: END STAGE RENAL DISEASE, HYPERPARATHYROIDISM; possible Hep C Past Surgical History: Other Additional Past Surgical Histo: DIALYSIS SHUNT LEFT ARM Alcohol Use: None Drug Use: None Adult General Chief Complaint Chief Complaint: ALTERED MENTAL STATUS HPI HPI Patient is a 67 year old F who presents with altered mental status status post dialysis treatment this morning. After patient finished her dialysis treatment she became unresponsive and was only responsive to painful stimuli. Patient had been complaining of right arm pain however it was unclear if the patient had traumatic injury to that right arm. EMS brought the patient with a GCS of 13 with no family at bedside and the patient is alert and oriented to person. Patient screams out in pain when you move her right arm. Patient has no other signs of overt significant trauma. Review of Systems Review of Systems Review of symptoms limited secondary to patient's clinical condition All other systems were reviewed and found to be within normal limits, except as documented in this note. Current Medications Current Medications Current Medications Medications (Trade) Dose Ordered Sig/Bria Start Time Stop Time Status Last Admin Dose Admin Fentanyl Citrate (Fentanyl 2ml Vial) 50 mcg PRN Q1HR PRN 07/15/17 12:45 07/16/17 12:44 Ondansetron HCl (Zofran) 4 mg PRN Q8HRS PRN 07/15/17 12:45 07/16/17 12:44 Allergies Allergies Allergies Coded Allergies Type Severity Reaction Last Updated Verified codeine Allergy Intermediate 08/10/15 Yes neomycin Allergy Intermediate 07/15/17 Yes polymyxin B Allergy Intermediate 07/15/17 Yes sulfamethoxazole Allergy Intermediate 07/15/17 Yes trimethoprim Allergy Intermediate 07/15/17 Yes Physical Exam Physical Exam GEN.: Severe distress. Alert and oriented only to person HEENT: Head is normocephalic, atraumatic NECK: Supple. LUNGS: CTAB. HEART: RRR, S1, S2 present. Peripheral pulses intact ABDOMEN: Soft, nontender. Positive bowel sounds. EXTREMITIES: Without any cyanosis, tenderness palpation to the right upper extremity, patient screams with range of motion of the right upper extremity NEUROLOGIC: GCS 13 PSYCHIATRIC: confused SKIN: No ulcerations Current Patient Data Vital Signs Vital Signs Date Time Temp Pulse Resp B/P (MAP) Pulse Ox O2 Delivery O2 Flow Rate FiO2 07/15/17 11:28 90 19 97 07/15/17 10:22 98.8 148/65 (92) Room Air 98.8 Lab Values Laboratory Tests Test 07/15/17 11:00 White Blood Count 13.3 x10^3/uL (4.0-11.0) H Red Blood Count 3.51 x10^6/uL (3.50-5.40) Hemoglobin 9.9 g/dL (12.0-15.5) L Hematocrit 31.3 % (36.0-47.0) L Mean Corpuscular Volume 89 fL (79-100) Mean Corpuscular Hemoglobin 28 pg (25-35) Mean Corpuscular Hemoglobin Concent 32 g/dL (31-37) Red Cell Distribution Width 16.9 % (11.5-14.5) H Platelet Count 347 x10^3/uL (140-400) Neutrophils (%) (Auto) 77 % (31-73) H Lymphocytes (%) (Auto) 8 % (24-48) L Monocytes (%) (Auto) 13 % (0-9) H Eosinophils (%) (Auto) 1 % (0-3) Basophils (%) (Auto) 0 % (0-3) Neutrophils # (Auto) 10.2 x10^3uL (1.8-7.7) H Lymphocytes # (Auto) 1.1 x10^3/uL (1.0-4.8) Monocytes # (Auto) 1.7 x10^3/uL (0.0-1.1) H Eosinophils # (Auto) 0.2 x10^3/uL (0.0-0.7) Basophils # (Auto) 0.1 x10^3/uL (0.0-0.2) Sodium Level 139 mmol/L (136-145) Potassium Level 4.0 mmol/L (3.5-5.1) Chloride Level 99 mmol/L (98-107) Carbon Dioxide Level 32 mmol/L (21-32) Anion Gap 8 (6-14) Blood Urea Nitrogen 24 mg/dL (7-20) H Creatinine 4.1 mg/dL (0.6-1.0) H Estimated GFR (Cockcroft-Gault) 13.2 BUN/Creatinine Ratio 6 (6-20) Glucose Level 85 mg/dL (70-99) Calcium Level 8.5 mg/dL (8.5-10.1) Total Bilirubin 0.4 mg/dL (0.2-1.0) Aspartate Amino Transferase (AST) 36 U/L (15-37) Alanine Aminotransferase (ALT) 44 U/L (14-59) Alkaline Phosphatase 125 U/L (46-116) H Total Protein 8.0 g/dL (6.4-8.2) Albumin 2.6 g/dL (3.4-5.0) L Albumin/Globulin Ratio 0.5 (1.0-1.7) L Laboratory Tests 07/15/17 11:00 Laboratory Tests 07/15/17 11:00 EKG EKG 1100: EKG shows normal sinus rhythm rate of 86 no STEMI[] Radiology/Procedures Radiology/Procedures History: Shoulder pain There are extensive degenerative changes at the glenohumeral joint with subchondral sclerosis, cyst formation and spurring. There is mild subacromial spurring. No acute fracture or dislocation is identified. IMPRESSION: 1. Moderately severe degenerative change. 2. No acute bony abnormality is detected. Right elbow, 2 views, 07/15/2017: No fracture or dislocation is identified. There is no radiographic evidence of a joint effusion. Subcutaneous edema is present posteriorly. IMPRESSION: No acute right elbow abnormality is detected. Portable chest, 07/15/2017: Comparison is made to a study from 05/31/2017. The heart is at the upper limits of normal in size. There is calcific plaquing and tortuosity of the thoracic aorta. Prominent calcified mediastinal lymph nodes are present compatible with old granulomatous disease. The depth of inspiration is suboptimal. No acute infiltrate is seen. There is no evidence of pleural fluid or pneumothorax. Moderate degenerative changes are present at both shoulders and in the spine. IMPRESSION: 1. Borderline cardiomegaly and aortic atherosclerosis. 2. No acute abnormality is detected.[] Course & Med Decision Making Course & Med Decision Making Pertinent Labs and Imaging studies reviewed. (See chart for details) ED course: Patient was seen and examined emergency room basic blood work along with a chest x-ray, right shoulder x-ray, CT scan of head were ordered Had a long talk with the daughter in regards to the patient's clinical status which she states she is completely altered and has been that way for the past week. Daughter states the patient is followed multiple times and her right arm and her orthopedist who states that there is muscle injury but daughter states this is not her neuro baseline. 1235: Discussed CC/HP/PMH with Dr. Gonzalez and recommends admit [] [] Dragon Disclaimer Dragon Disclaimer This electronic medical record was generated, in whole or in part, using a voice recognition dictation system. Departure Departure Impression: Primary Impression: Altered mental status Disposition: 09 ADMITTED INPATIENT Admitting Physician: Esperanza Gonzalez Condition: GUARDED Referrals: ESPERANZA GONZALEZ MD (PCP) ELIZABETH APPLE DO Jul 15, 2017 10:32
[2017-07-15 11:08] LABS: BASO # 0.1 x10^3/uL (0.0-0.2); BASO % 0 % (0-3); EOS % 1 % (0-3); HEMATOCRIT 31.3 % (36.0-47.0); HEMOGLOBIN 9.9 g/dL (12.0-15.5); LYMPH # 1.1 x10^3/uL (1.0-4.8); LYMPH % 8 % (24-48); MEAN CORPUSCULAR HEMOGLOBIN 28 pg (25-35); MEAN CORPUSCULAR HGB CONC 32 g/dL (31-37); MEAN CORPUSCULAR VOLUME 89 fL (79-100); MONO % 13 % (0-9); NEUT % 77 % (31-73); PLATELET COUNT 347 x10^3/uL (140-400); RED BLOOD COUNT 3.51 x10^6/uL (3.50-5.40); RED CELL DISTRIBUTION WIDTH 16.9 % (11.5-14.5); WHITE BLOOD COUNT 13.3 x10^3/uL (4.0-11.0)
--- NOTE | 2017-07-15 11:20 | RAD ---
Right shoulder, 3 views, 07/15/2017: History: Shoulder pain There are extensive degenerative changes at the glenohumeral joint with subchondral sclerosis, cyst formation and spurring. There is mild subacromial spurring. No acute fracture or dislocation is identified. IMPRESSION: 1. Moderately severe degenerative change. 2. No acute bony abnormality is detected. Right elbow, 2 views, 07/15/2017: No fracture or dislocation is identified. There is no radiographic evidence of a joint effusion. Subcutaneous edema is present posteriorly. IMPRESSION: No acute right elbow abnormality is detected. Portable chest, 07/15/2017: Comparison is made to a study from 05/31/2017. The heart is at the upper limits of normal in size. There is calcific plaquing and tortuosity of the thoracic aorta. Prominent calcified mediastinal lymph nodes are present compatible with old granulomatous disease. The depth of inspiration is suboptimal. No acute infiltrate is seen. There is no evidence of pleural fluid or pneumothorax. Moderate degenerative changes are present at both shoulders and in the spine. IMPRESSION: 1. Borderline cardiomegaly and aortic atherosclerosis. 2. No acute abnormality is detected.
[2017-07-15 11:30] LABS: CALCIUM 8.5 mg/dL (8.5-10.1); CREATININE 4.1 mg/dL (0.6-1.0); GFR 13.2
--- NOTE | 2017-07-15 11:31 | EKG ---
[facility] [address] [place] [address] Test Date: 2017-07-15 Test Time: 11:09:01 Pat Name: IVAN REEVES Department: Room: Gender: F Systems Mgr: : [id number] Requested By: ELIZABETH APPLE Order Number: [id number] Reading MD: Qasim Remy MD Measurements Intervals [place] Rate: 86 P: 53 MD: 168 QRS: -16 QRSD: 102 T: 34 QT: 366 QTc: 440 Interpretive Statements SINUS RHYTHM Electronically Signed On 07-23-2017 13:51:51 [employer] by Qasim Remy MD
--- NOTE | 2017-07-15 11:32 | RAD ---
Indication: Altered mental status post dialysis. Technique: Noncontrast CT head was obtained. Comparison is from May 31, 2017. One or more of the following individualized dose reduction techniques were utilized for this examination: 1. Automated exposure control 2. Adjustment of the mA and/or kV according to patient size 3. Use of iterative reconstruction technique Findings: There is prominence of the ventricles and sulci, symmetric. A few areas of decreased attenuation in the supratentorial white matter are nonspecific but most suggestive of mild small vessel ischemic disease. There is no acute intracranial hemorrhage or extra-axial fluid collection. There is no mass effect or midline shift. Baxter-white differentiation is preserved. Vascular calcifications are noted. There is no depressed skull fracture. The included paranasal sinuses and mastoid air cells are clear. Impression: 1. No acute intracranial findings. 2. Brain parenchymal volume loss and mild probable small vessel ischemic disease.
[2017-07-15 11:34] LABS: ALBUMIN 2.6 g/dL (3.4-5.0); ALBUMIN/GLOBULIN RATIO 0.5 (1.0-1.7); TOTAL BILIRUBIN 0.4 mg/dL (0.2-1.0)
[2017-07-15] MEDS ORDERED: fentaNYL PF VIAL 100 MCG/2 ML VIAL IV PRN (12:45)
[2017-07-15] MEDS ORDERED: ONDANSETRON PF 4 MG/2 ML VIAL. IV PRN (12:45)
[2017-07-15 15:00] VITALS: BP 138/44
[2017-07-15] MEDS ORDERED: DEXTROSE 50% 25 GM / 50ML DISP.SYRIN. IV PRN ×2 (15:45→22:00)
[2017-07-15] MEDS ORDERED: DIPHENOXYLATE/ATROPINE TABLET. PO PRN (15:45)
[2017-07-15] MEDS: LISINOPRIL 20 MG TABLET PO SCH (16:30)
[2017-07-15] MEDS: amLODIPine BESYLATE 5 MG TABLET PO SCH (16:30)
[2017-07-15] MEDS: INSULIN ASPART 300 UNITS/3 ML INSULN.PEN SQ SCH (17:00)
[2017-07-15] MEDS: ASPIRIN 325 MG TABLET PO SCH (17:17)
[2017-07-15] MEDS: SEVELAMER CARBONATE 800 MG TABLET. PO SCH (17:17)
[2017-07-15] MEDS: FAMOTIDINE 20 MG TABLET. PO SCH (17:17)
[2017-07-15] MEDS: LATANOPROST 0.005% OPHTH SOLUTION 2.5ML BOTTLE. OU SCH ×2 (18:00→18:16)
[2017-07-15 19:00] VITALS: BP 142/42
[2017-07-15] MEDS: MONTELUKAST SODIUM 10 MG TABLET. PO SCH (21:19)
[2017-07-15] MEDS: GABAPENTIN 300 MG CAPSULE. PO SCH (21:19)
[2017-07-15] MEDS: ATORVASTATIN CALCIUM 20 MG TABLET PO SCH (21:19)
[2017-07-15] MEDS: cycloSPORINE 0.05% OPTH 1 DROP DROPERETTE OU SCH (21:21)
[2017-07-15] MEDS: oxyCODONE/APAP 5/325 1 TAB TABLET PO PRN (21:21)
[2017-07-15] MEDS: HEPARIN PF for SUB-Q USE 5,000 UNIT/0.5 ML VIAL. SQ SCH (22:30)
[2017-07-15 23:00] VITALS: BP 107/34
[2017-07-16 03:00] VITALS: BP 131/42
[2017-07-16] MEDS: HEPARIN PF for SUB-Q USE 5,000 UNIT/0.5 ML VIAL. SQ SCH ×3 (05:12→21:06)
[2017-07-16 05:33] LABS: BASO % 1 % (0-3); EOS % 3 % (0-3); HEMATOCRIT 29.6 % (36.0-47.0); HEMOGLOBIN 9.2 g/dL (12.0-15.5); LYMPH # 1.3 x10^3/uL (1.0-4.8); LYMPH % 16 % (24-48); MEAN CORPUSCULAR HEMOGLOBIN 28 pg (25-35); MEAN CORPUSCULAR HGB CONC 31 g/dL (31-37); MEAN CORPUSCULAR VOLUME 91 fL (79-100); MONO % 16 % (0-9); NEUT % 65 % (31-73); PLATELET COUNT 321 x10^3/uL (140-400); RED BLOOD COUNT 3.24 x10^6/uL (3.50-5.40); RED CELL DISTRIBUTION WIDTH 17.6 % (11.5-14.5); WHITE BLOOD COUNT 8.5 x10^3/uL (4.0-11.0)
[2017-07-16 05:59] LABS: CALCIUM 8.4 mg/dL (8.5-10.1); CREATININE 5.7 mg/dL (0.6-1.0); POTASSIUM 4.8 mmol/L (3.5-5.1)
[2017-07-16 07:00] VITALS: BP 111/56
[2017-07-16] MEDS ORDERED: INSULIN ASPART 300 UNITS/3 ML INSULN.PEN SQ SCH (08:00)
[2017-07-16] MEDS: INSULIN ASPART 300 UNITS/3 ML INSULN.PEN SQ SCH ×3 (08:11→17:00)
[2017-07-16] MEDS: SEVELAMER CARBONATE 800 MG TABLET. PO SCH ×3 (09:00→17:03)
[2017-07-16] MEDS: ASPIRIN 325 MG TABLET PO SCH (09:01)
[2017-07-16] MEDS: GABAPENTIN 300 MG CAPSULE. PO SCH (09:01)
[2017-07-16] MEDS: LISINOPRIL 20 MG TABLET PO SCH (09:02)
[2017-07-16] MEDS: amLODIPine BESYLATE 5 MG TABLET PO SCH (09:02)
[2017-07-16] MEDS: FAMOTIDINE 20 MG TABLET. PO SCH (09:02)
[2017-07-16] MEDS: oxyCODONE/APAP 5/325 1 TAB TABLET PO PRN ×3 (09:03→21:06)
--- NOTE | 2017-07-16 10:26 | PDOC ---
Provider Note Provider Note Pt seen .H&P dictated. #[id number] ESPERANZA JENNINGS MD Jul 16, 2017 10:26
[2017-07-16 11:00] VITALS: BP 91/33
--- NOTE | 2017-07-16 11:05 | HP ---
ADMIT DATE: 07/15/2017 REASON FOR ADMISSION TO THE HOSPITAL: Altered mental status. HISTORY OF PRESENT ILLNESS: The patient is a 67-year-old female. She was at the dialysis center. She goes to dialysis 3 times a week, Saturday, Saturday and Saturday. Yesterday, she was at dialysis. After the treatment, she was with altered mental status, and responsive only to painful stimulus, was complaining of right shoulder pain which she has been having for a long time. The patient was seen in the Emergency Room. Her white count was slightly elevated at [address] head was negative. X-ray of the shoulder shows chronic problem. She has a chronic rotator cuff tear and the patient was admitted to the hospital for altered mental status and she has history of diabetes in the past, gone into hypoglycemia causing similar episodes in the past. PAST MEDICAL HISTORY: She has had diabetes type 2, off insulin completely; has renal disease; hypertension; hyperlipidemia; chronic shoulder pain. 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 PAST SURGICAL HISTORY: Has bilateral knee replacements, dialysis shunt in the left arm. ALLERGIES: CODEINE, NEOMYCIN, POLYMYXIN, SULFAMETHOXAZOLE, TRIMETHOPRIM. MEDICATIONS AT HOME: The patient is on amlodipine 5 mg, aspirin 325 daily, atorvastatin 20 mg daily, Restasis eyedrops, Lomotil p.r.n., vitamin D daily, Pepcid 20 mg daily, hydralazine 50 mg 3 times daily, gabapentin 100 mg 3 times daily, eye drops latanoprost 2.5 one drop both eyes, lisinopril 20 mg daily, Singulair 10 mg daily, Percocet 5/325 last time and was increased to 10/325 because of shoulder pain, Renvela 800 mg 3 times daily. PERSONAL HISTORY: Ex-smoker. She has stopped recently, smoked for 30 years. Denies alcohol or drug abuse. SOCIAL HISTORY: Lives at home. She is wheelchair level activity, goes to dialysis. The patient is blind in the right eye and limited vision in the left eye. REVIEW OF SYSTEMS: CARDIAC: No chest pain. GASTROINTESTINAL: No nausea, vomiting. MUSCULOSKELETAL: Complains of right shoulder pain. The patient is back to her baseline now. PHYSICAL EXAMINATION: VITAL SIGNS: Temperature 98, pulse 89, respirations 24, blood pressure 148/65, 98 on room air. HEENT: Head is atraumatic. The patient is blind in the right eye. Left eye has limited vision. Oral cavity: No congestion. NECK: Supple. Thyroid not enlarged. JVD not elevated. CHEST: Symmetrical. CARDIOVASCULAR: S1, S2. LUNGS: Clear. ABDOMEN: Soft, no mass palpable. ARM: The patient has AV shunt in the left arm. RIGHT SHOULDER: The patient has pain, limited mobility. EXTERNAL GENITALIA: No Knott. RECTAL: Deferred. EXTREMITIES: The patient has scars of bilateral knee replacements. No edema. NEUROLOGIC: The patient is oriented to place and person. She does not remember what happened in dialysis. Denies any chest pain or sob. LABORATORY DATA: Shows a white count of 13, came down to 8; hemoglobin 10; platelets 347. Electrolytes show sodium 139, potassium 4.0, chloride 99, bicarbonate 32, BUN 24, creatinine 4.1, glucose 85 and second glucose was 57. LFTs were normal. CT scan was negative. Chest x-ray was negative. Shoulder x-ray negative for fracture. FINAL IMPRESSION: 1. Change in mental status after dialysis. 2. Possibility of hypoglycemia. 3. Chronic pain syndrome, right shoulder rotator cuff tear. 4. End-stage renal disease, on dialysis. 5. Hypertension. 6. Hyperlipidemia. 7. History of diabetes, but not taking any medications or insulin now. PLAN: At this time, admit to hospital. Renal consult, will have a Neurology consult too, make sure she does not have any other etiology causing the problems like seizures or strokes and also we will have Orthopedic to see for the shoulder. The patient says she is not taking more pain medication, 1 tablet 3 times daily, we will cut down the Neurontin dose. ESPERANZA JENNINGS MD DR: BRITTANI/macarena JOB#: [id number] / [id number] SHARAN
[2017-07-16] MEDS: METHYLPHENIDATE HCL 5 MG TABLET PO SCH (11:30)
[2017-07-16 15:01] VITALS: BP 103/43
[2017-07-16] MEDS: LATANOPROST 0.005% OPHTH SOLUTION 2.5ML BOTTLE. OU SCH (17:08)
[2017-07-16 19:00] VITALS: BP 125/49
--- NOTE | 2017-07-16 20:14 | PDOC2 ---
NEUROLOGY CONSULT Date of Admission Date of Admission DATE: 07/16/17 TIME: 19:58 Reason for Consult Reason for Consult: IMPRESSION: Metabolic encephalopathy. Confusion. Weakness, general Renal failure on dialysis. DM HTN HLD HCV? Hyperparathyroidism Vit D deficiency. Peripheral neuropathy, LE. Obesity. RECOMMENDATIONS/PLAN: Brain MRI w/o contrast. Continue ASA 325 mg daily. Continue Lipitor HS. Lab: see orders. Treat medical diseases. OT/PT. HISTORY OF THE PRESENT ILLNESS: 67-y-old AA female patient with above medical diseases and renal failure on dialysis. She had MS changes, confusion during dialysis and generalized weakness for prolonged time. She was admitted for further evaluation. PAST MEDICAL HISTORY: Diabetes type 2, off insulin completely. ESRD on dialysis. Hypertension Hyperlipidemia Chronic degenerative shoulder disease. 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 PAST SURGICAL HISTORY: Bilateral knee replacements Dialysis shunt in the left arm. ALLERGIES: CODEINE, NEOMYCIN, POLYMYXIN, SULFAMETHOXAZOLE, TRIMETHOPRIM. MEDICATIONS: See Mar. PERSONAL HISTORY: Smoked for 30 years but quit recently. Denies alcohol or drug abuse. SOCIAL HISTORY: Lives at home. Wheelchair condition. Blind in the right eye and limited vision in the left eye. REVIEW OF SYSTEMS: Constitutional: Obesity. Head: No recent traumatic brain or head injury. Skin: No edema, or rash. Ear: No infection. Eyes: No vision loss or color blindness. Nose: No bleeding or purulent discharges. Hearing: Hearing decrease. Neck: No injury. Breast: No history of cancer, masses,or discharges. Cardiac: HTN, HLD. Pulmonary: No COPD. GI: No GI ulcer, GI bleeding. Urinary/genital: ESRD on dialysis. Endocrinologic: Diabetes Mellitus, hyperparathyroidism, obesity. Skeletomuscular: Generalized weakness. Neurological: see HP. Psychiatric: Denies drug use/abuse. Otherwise, not [id number] review of systems. PHYSICAL EXAMINATION: General appearance is in subacute distress. HEENT: Normocephalic and nontraumatic. Eyes, nose, ears, and throat are unremarkable. Neck is supple. No lymphadenopathy. No crepitus. Cardiovascular: S1, S2, regular rate and rhythm. Pulmonary: Clear to auscultation bilaterally. Abdomen: Bowel sounds are positive. Abdomen is soft, nontender, and nondistended. Extremities: No rash, lesions, or edema. NEUROLOGICAL EXAMINATION: Awake. Oriented to place and person and partially to time, reactions were slow.. PERRL. EOMI. CN: no focal findings. Muscle tone: within normal. Muscle strength: 4 UE, 4- LE DTR: 2- UE, 0 at knee, surgical scars noted in knees. Plantar reflex: Neutral response bilaterally Gait: not examined in bed. Sensory exam: no abnormal findings. No acute cerebellar signs elicited. F-T-N test fine Current Medications Current Medications Current Medications Ondansetron HCl (Zofran) 4 mg PRN Q8HRS PRN IV NAUSEA/VOMITING; Start at 12:45; Stop 07/16/17 at 12:44; Status DC Fentanyl Citrate (Fentanyl 2ml Vial) 50 mcg PRN Q1HR PRN IV PAIN; Start at 12:45; Stop 07/16/17 at 12:44; Status DC Amlodipine Besylate (Norvasc) 5 mg DAILY PO Last administered on 07/16/17 09: 02; Start 07/15/17 at 16:30 Aspirin (Bridgette Aspirin) 325 mg DAILY PO Last administered on 07/16/17 09:01; Start 07/15/17 at 16:30 Atorvastatin Calcium (Lipitor) 20 mg QHS PO Last administered on 07/15/17 21: 19; Start 07/15/17 at 21:00 Cyclosporine (Restasis) 1 drop HS OU Last administered on 07/15/17 21:21; Start 07/15/17 at 21:00 Diphenoxylate HCl/ Atropine (Lomotil) 1 tab PRN Q3HRS PRN PO DIARRHEA; Start 07/15/17 at 15:45; Stop 07/16/17 at 10:30; Status DC Ergocalciferol (Vitamin D2) 50,000 unit Fr PO ; Start 07/19/17 at 09:00 Famotidine (Pepcid) 20 mg DAILY PO Last administered on 07/16/17 09:02; Start 07/15/17 at 16:30 Hydralazine HCl (Apresoline) 100 mg TID PO Last administered on 07/16/17 16: 55; Start 07/15/17 at 16:30 Latanoprost (Xalatan) 1 drop QPM OU Last administered on 07/16/17 17:08; Start 07/15/17 at 18:00 Lisinopril (Prinivil) 20 mg DAILY PO Last administered on 07/16/17 09:02; Start 07/15/17 at 16:30 Montelukast Sodium (Singulair) 10 mg HS PO Last administered on 07/15/17 21: 19; Start 07/15/17 at 21:00 Oxycodone/ Acetaminophen (Percocet 5/325) 2 tab PRN Q6HRS PRN PO PAIN Last administered on 07/16/17 09:03; Start 07/15/17 at 15:45; Stop 07/16/17 at 10 :30; Status DC Sevelamer Carbonate (Renvela) 800 mg TIDWMEALS PO Last administered on 17:03; Start 07/15/17 at 17:00 Gabapentin (Neurontin) 300 mg TID PO Last administered on 07/16/17 09:01; Start 07/15/17 at 21:00; Stop 07/16/17 at 10:30; Status DC Insulin Aspart (NovoLOG) 0-5 UNITS TIDWMEALS SQ ; Start 07/15/17 at 17:00 Dextrose (Dextrose 50%-Water Syringe) 12.5 gm PRN Q15MIN PRN IV SEE COMMENTS Last administered on 07/15/17 16:45; Start 07/15/17 at 15:45 Insulin Aspart (NovoLOG) 0-5 UNITS TIDWMEALS SQ ; Start 07/16/17 at 08:00; Stop 07/16/17 at 08:00; Status DC Dextrose (Dextrose 50%-Water Syringe) 12.5 gm PRN Q15MIN PRN IV SEE COMMENTS; Start 07/15/17 at 22:00; Stop 07/15/17 at 22:08; Status DC Heparin Sodium (Porcine) (Heparin Sq) 5,000 unit Q8HRS SQ ; Start 07/15/17 at 23:00 Oxycodone/ Acetaminophen (Percocet 5/325) 1 tab PRN Q6HRS PRN PO PAIN Last administered on 07/16/17 16:59; Start 07/16/17 at 10:30 Methylphenidate HCl (Ritalin) 5 mg BIDACBL PO ; Start 07/16/17 at 11:30 Active Scripts Active Atorvastatin Calcium 20 Mg Tablet 20 Mg PO QHS 30 Days Amlodipine Besylate 5 Mg Tablet 5 Mg PO DAILY Lisinopril 20 Mg Tablet 20 Mg PO DAILY Latanoprost 2.5 Ml Drops 1 Drop OU QPM Vitamin D2 (Ergocalciferol (Vitamin D2)) 50,000 Unit Capsule 50,000 Unit PO FR Hydralazine Hcl 50 Mg Tablet 100 Mg PO TID Reported Restasis (Cyclosporine) 1 Each Droperette 1 Drop EACHEYE HS Singulair Tablet (Montelukast Sodium) 10 Mg Tablet 10 Mg PO Renvela (Sevelamer Carbonate) 800 Mg Tablet 800 Mg PO TIDWMEALS+1EXTRA@DIN Lomotil Tablet (Diphenoxylate Hcl/Atropine) 1 Each Tablet Unknown Dose PO Percocet 5-325 Mg Tablet (Oxycodone/Acetaminophen) 1 Each Tablet 2 Tab PO Q 6 HRS PRN Pepcid (Famotidine) 20 Mg Tablet 20 Mg PO Gabapentin Oral Solution (Gabapentin) 300 Mg/6 Ml Solution 300 Mg PO TID Nephro-Alexandra Rx Tablet (Vit B Cmplx 3/Fa/Vit C/Biotin) 1 Each Tablet 1 Each PO Aspirin 325 Mg Tablet 325 Mg PO Allergies Allergies: Coded Allergies: codeine (Verified Allergy, Intermediate, 08/10/15) Takes percocet at home neomycin (Verified Allergy, Intermediate, 07/15/17) polymyxin B (Verified Allergy, Intermediate, 07/15/17) sulfamethoxazole (Verified Allergy, Intermediate, 07/15/17) trimethoprim (Verified Allergy, Intermediate, 07/15/17) Vitals VITALS Vital Signs Date Time Temp Pulse Resp B/P (MAP) Pulse Ox O2 Delivery O2 Flow Rate FiO2 07/16/17 19:52 Room Air 07/16/17 17:59 20 97 07/16/17 16:55 75 103/43 07/16/17 15:01 98.1 98.1 Labs Labs Laboratory Tests Test 07/15/17 11:00 07/15/17 16:21 07/15/17 16:52 07/15/17 21:05 White Blood Count 13.3 x10^3/uL (4.0-11.0) Red Blood Count 3.51 x10^6/uL (3.50-5.40) Hemoglobin 9.9 g/dL (12.0-15.5) Hematocrit 31.3 % (36.0-47.0) Mean Corpuscular Volume 89 fL (79-100) Mean Corpuscular Hemoglobin 28 pg (25-35) Mean Corpuscular Hemoglobin Concent 32 g/dL (31-37) Red Cell Distribution Width 16.9 % (11.5-14.5) Platelet Count 347 x10^3/uL (140-400) Neutrophils (%) (Auto) 77 % (31-73) Lymphocytes (%) (Auto) 8 % (24-48) Monocytes (%) (Auto) 13 % (0-9) Eosinophils (%) (Auto) 1 % (0-3) Basophils (%) (Auto) 0 % (0-3) Neutrophils # (Auto) 10.2 x10^3uL (1.8-7.7) Lymphocytes # (Auto) 1.1 x10^3/uL (1.0-4.8) Monocytes # (Auto) 1.7 x10^3/uL (0.0-1.1) Eosinophils # (Auto) 0.2 x10^3/uL (0.0-0.7) Basophils # (Auto) 0.1 x10^3/uL (0.0-0.2) Sodium Level 139 mmol/L (136-145) Potassium Level 4.0 mmol/L (3.5-5.1) Chloride Level 99 mmol/L (98-107) Carbon Dioxide Level 32 mmol/L (21-32) Anion Gap 8 (6-14) Blood Urea Nitrogen 24 mg/dL (7-20) Creatinine 4.1 mg/dL (0.6-1.0) Estimated GFR (Cockcroft-Gault) 13.2 BUN/Creatinine Ratio 6 (6-20) Glucose Level 85 mg/dL (70-99) Calcium Level 8.5 mg/dL (8.5-10.1) Total Bilirubin 0.4 mg/dL (0.2-1.0) Aspartate Amino Transf (AST/SGOT) 36 U/L (15-37) Alanine Aminotransferase (ALT/SGPT) 44 U/L (14-59) Alkaline Phosphatase 125 U/L (46-116) Total Protein 8.0 g/dL (6.4-8.2) Albumin 2.6 g/dL (3.4-5.0) Albumin/Globulin Ratio 0.5 (1.0-1.7) Glucose (Fingerstick) 57 mg/dL (70-99) 141 mg/dL (70-99) 123 mg/dL (70-99) Test 07/16/17 04:41 07/16/17 07:35 07/16/17 08:28 07/16/17 11:03 White Blood Count 8.5 x10^3/uL (4.0-11.0) Red Blood Count 3.24 x10^6/uL (3.50-5.40) Hemoglobin 9.2 g/dL (12.0-15.5) Hematocrit 29.6 % (36.0-47.0) Mean Corpuscular Volume 91 fL (79-100) Mean Corpuscular Hemoglobin 28 pg (25-35) Mean Corpuscular Hemoglobin Concent 31 g/dL (31-37) Red Cell Distribution Width 17.6 % (11.5-14.5) Platelet Count 321 x10^3/uL (140-400) Neutrophils (%) (Auto) 65 % (31-73) Lymphocytes (%) (Auto) 16 % (24-48) Monocytes (%) (Auto) 16 % (0-9) Eosinophils (%) (Auto) 3 % (0-3) Basophils (%) (Auto) 1 % (0-3) Neutrophils # (Auto) 5.5 x10^3uL (1.8-7.7) Lymphocytes # (Auto) 1.3 x10^3/uL (1.0-4.8) Monocytes # (Auto) 1.4 x10^3/uL (0.0-1.1) Eosinophils # (Auto) 0.2 x10^3/uL (0.0-0.7) Basophils # (Auto) 0.0 x10^3/uL (0.0-0.2) Sodium Level 139 mmol/L (136-145) Potassium Level 4.8 mmol/L (3.5-5.1) Chloride Level 100 mmol/L (98-107) Carbon Dioxide Level 28 mmol/L (21-32) Anion Gap 11 (6-14) Blood Urea Nitrogen 37 mg/dL (7-20) Creatinine 5.7 mg/dL (0.6-1.0) Estimated GFR (Cockcroft-Gault) 9.0 Glucose Level 73 mg/dL (70-99) Calcium Level 8.4 mg/dL (8.5-10.1) Vitamin B12 Level 751 pg/mL (247-911) 25-Hydroxy Vitamin D Total 12.5 ng/mL (30-100) Thyroid Stimulating Hormone (TSH) 4.714 uIU/mL (0.358-3.74) Glucose (Fingerstick) 68 mg/dL (70-99) 79 mg/dL (70-99) 123 mg/dL (70-99) Test 07/16/17 16:40 Glucose (Fingerstick) 128 mg/dL (70-99) Laboratory Tests Test 07/15/17 21:05 07/16/17 04:41 07/16/17 07:35 07/16/17 08:28 Glucose (Fingerstick) 123 mg/dL (70-99) 68 mg/dL (70-99) 79 mg/dL (70-99) White Blood Count 8.5 x10^3/uL (4.0-11.0) Red Blood Count 3.24 x10^6/uL (3.50-5.40) Hemoglobin 9.2 g/dL (12.0-15.5) Hematocrit 29.6 % (36.0-47.0) Mean Corpuscular Volume 91 fL (79-100) Mean Corpuscular Hemoglobin 28 pg (25-35) Mean Corpuscular Hemoglobin Concent 31 g/dL (31-37) Red Cell Distribution Width 17.6 % (11.5-14.5) Platelet Count 321 x10^3/uL (140-400) Neutrophils (%) (Auto) 65 % (31-73) Lymphocytes (%) (Auto) 16 % (24-48) Monocytes (%) (Auto) 16 % (0-9) Eosinophils (%) (Auto) 3 % (0-3) Basophils (%) (Auto) 1 % (0-3) Neutrophils # (Auto) 5.5 x10^3uL (1.8-7.7) Lymphocytes # (Auto) 1.3 x10^3/uL (1.0-4.8) Monocytes # (Auto) 1.4 x10^3/uL (0.0-1.1) Eosinophils # (Auto) 0.2 x10^3/uL (0.0-0.7) Basophils # (Auto) 0.0 x10^3/uL (0.0-0.2) Sodium Level 139 mmol/L (136-145) Potassium Level 4.8 mmol/L (3.5-5.1) Chloride Level 100 mmol/L (98-107) Carbon Dioxide Level 28 mmol/L (21-32) Anion Gap 11 (6-14) Blood Urea Nitrogen 37 mg/dL (7-20) Creatinine 5.7 mg/dL (0.6-1.0) Estimated GFR (Cockcroft-Gault) 9.0 Glucose Level 73 mg/dL (70-99) Calcium Level 8.4 mg/dL (8.5-10.1) Vitamin B12 Level 751 pg/mL (247-911) 25-Hydroxy Vitamin D Total 12.5 ng/mL (30-100) Thyroid Stimulating Hormone (TSH) 4.714 uIU/mL (0.358-3.74) Test 07/16/17 11:03 07/16/17 16:40 Glucose (Fingerstick) 123 mg/dL (70-99) 128 mg/dL (70-99) CHAD LOPEZ MD Jul 16, 2017 20:14
[2017-07-16] MEDS: cycloSPORINE 0.05% OPTH 1 DROP DROPERETTE OU SCH (21:03)
[2017-07-16] MEDS: MONTELUKAST SODIUM 10 MG TABLET. PO SCH (21:06)
[2017-07-16] MEDS: ATORVASTATIN CALCIUM 20 MG TABLET PO SCH (21:06)
[2017-07-16 23:00] VITALS: BP 135/85
[2017-07-17 03:09] VITALS: BP 117/52
[2017-07-17] MEDS: HEPARIN PF for SUB-Q USE 5,000 UNIT/0.5 ML VIAL. SQ SCH ×3 (05:04→21:16)
[2017-07-17 07:00] VITALS: BP 106/45
[2017-07-17] MEDS: INSULIN ASPART 300 UNITS/3 ML INSULN.PEN SQ SCH ×3 (07:57→17:00)
[2017-07-17] MEDS: SEVELAMER CARBONATE 800 MG TABLET. PO SCH ×3 (07:57→17:55)
[2017-07-17] MEDS: METHYLPHENIDATE HCL 5 MG TABLET PO SCH ×2 (07:57→13:23)
[2017-07-17] MEDS: amLODIPine BESYLATE 5 MG TABLET PO SCH (07:58)
[2017-07-17] MEDS: ASPIRIN 325 MG TABLET PO SCH (07:58)
[2017-07-17] MEDS: FAMOTIDINE 20 MG TABLET. PO SCH (07:59)
[2017-07-17] MEDS: LISINOPRIL 20 MG TABLET PO SCH (07:59)
[2017-07-17] MEDS: oxyCODONE/APAP 5/325 1 TAB TABLET PO PRN ×2 (08:00→18:48)
[2017-07-17] MEDS ORDERED: IV NORMAL SALINE 1000ML BAG 1,000 ML IV PRN ×2 (08:26)
[2017-07-17] MEDS ORDERED: DIALYSIS PATIENT. MC PRN ×2 (08:30)
--- NOTE | 2017-07-17 09:53 | PDOC ---
PROGRESS NOTES Subjective Subjective seen in dialysis ctr Objective Objective Vital Signs Date Time Temp Pulse Resp B/P (MAP) Pulse Ox O2 Delivery O2 Flow Rate FiO2 07/17/17 08:00 20 98 Room Air 07/17/17 07:59 80 117/52 07/17/17 07:00 97.9 97.9 Intake and Output 07/17/17 07:00 Intake Total 830 ml Balance 830 ml Intake Oral 830 ml # Voids 1 Physical Exam Abdomen: Normal bowel sounds Heart: Regular rate, Normal S1 Extremities: No clubbing General: Alert, No acute distress HEENT: Atraumatic Lungs: Clear to auscultation MUSCULOSKELETAL: Other Neck: Supple Neuro: Normal speech Psych/Mental Status: Mood NL Skin: No breakdown Diagnosis Problem List Problems Medical Problems: (1) Altered mental status Status: Acute Assessment Assessment Problems Medical Problems: (1) Altered mental status Status: Acute FINAL IMPRESSION: 1. Change in mental status after dialysis. 2. Possibility of hypoglycemia. 3. Chronic pain syndrome, right shoulder rotator cuff tear. 4. End-stage renal disease, on dialysis. 5. Hypertension. 6. Hyperlipidemia. 7. History of diabetes, but not taking any medications or insulin now. 8. KAT ? Narcolepsy PLAN: CT head -neg MRI brain later today EEG done report pending. nocturnal desaturation -neg for hypoxia. Dialysis today. SNU tomorrow, spoke with clinical social worker. needs out pt sleep study At this time, admit to hospital. Renal consult, will have a Neurology consult too, make sure she does not have any other etiology causing the problems like seizures or strokes and also we will have Orthopedic to see for the shoulder. The patient says she is not taking more pain medication, 1 tablet 3 times daily, we will cut down the Neurontin dose. Problems: Plan Plan of Care Problems Medical Problems: (1) Altered mental status Status: Acute Comment Review of Relevant I have reviewed the following items jason (where applicable) has been applied. Labs Laboratory Tests Test 07/16/17 11:03 07/16/17 16:40 07/17/17 07:34 Glucose (Fingerstick) 123 mg/dL (70-99) 128 mg/dL (70-99) 95 mg/dL (70-99) Medications Current Medications Ergocalciferol (Vitamin D2) 50,000 unit Fr PO ; Start 07/19/17 at 09:00 Info (PHARMACY MONITORING -- do not chart) 1 each PRN DAILY PRN MC SEE COMMENTS ; Start 07/17/17 at 08:30 Info (PHARMACY MONITORING -- do not chart) 1 each PRN DAILY PRN MC SEE COMMENTS ; Start 07/17/17 at 08:30; Status UNV Methylphenidate HCl (Ritalin) 5 mg BIDACBL PO Last administered on 07/17/17 07:57; Start 07/16/17 at 11:30 Oxycodone/ Acetaminophen (Percocet 5/325) 1 tab PRN Q6HRS PRN PO PAIN Last administered on 07/17/17 08:00; Start 07/16/17 at 10:30 Sodium Chloride 1,000 ml @ 400 mls/hr Q2H30M PRN IV PATENCY; Start 07/17/17 at 08:26; Stop 07/17/17 at 20:25 Sodium Chloride 1,000 ml @ 1,000 mls/hr Q1H PRN IV hypotension; Start at 08:26; Stop 07/17/17 at 14:25 Vitals/I & O Vital Sign - Last 24 Hours 07/16/17 07/16/17 07/16/17 07/16/17 11:00 15:01 16:55 16:59 Temp 97.9 98.1 97.9 98.1 Pulse 78 75 75 Resp 19 19 20 B/P (MAP) 91/33 (52) 103/43 (63) 103/43 Pulse Ox 97 97 97 O2 Delivery Room Air Room Air Room Air 07/16/17 07/16/17 07/16/17 07/16/17 19:00 19:52 21:05 21:06 Temp 97.9 97.9 Pulse 83 86 Resp 20 18 B/P (MAP) 125/49 (74) 123/57 Pulse Ox 95 95 O2 Delivery Room Air Room Air Room Air 07/16/17 07/16/17 07/17/17 07/17/17 22:06 23:00 03:09 07:00 Temp 97.6 97.7 97.9 97.6 97.7 97.9 Pulse 84 80 82 Resp 18 20 20 20 B/P (MAP) 135/85 (102) 117/52 (73) 106/45 (65) Pulse Ox 98 98 98 97 O2 Delivery Room Air Room Air Room Air Room Air 07/17/17 07/17/17 07/17/17 07/17/17 07:57 07:58 07:59 08:00 Pulse 80 80 80 Resp 20 B/P (MAP) 117/52 117/52 117/52 Pulse Ox 98 O2 Delivery Room Air Intake and Output 07/16/17 07/16/17 07/17/17 15:00 23:00 07:00 Intake Total 350 ml 480 ml Balance 350 ml 480 ml ESPERANZA JENNINGS MD Jul 17, 2017 09:53
--- NOTE | 2017-07-17 11:43 | PDOC2 ---
CONSULT Date of Consult Date of Consult DATE: 07/17/17 TIME: 11:39 Reason for Consult Reason for Consult: ESRD Referring Physician Referring Physician: DICK Identification/Chief Complaint Chief Complaint CONFUSION Problems: Source Source: Chart review History of Present Illness Reason for Visit: THIS IS A 67 YR WITH ESRD ON HD MWF. POST HD SATURDAY SHE WAS CONFUSED. LABS ARE C /W ESRD. HD WENT WELL. NO HYPOTENSION NOTED Past Medical History Cardiovascular: HTN, Hyperlipidemia CENTRAL NERVOUS SYSTEM: CVA, Periperal neuropathy GI: Constipation Heme/Onc: Anemia NOS Musculoskeletal: Osteoarthritis Renal/: Chronic renal failure Endocrine: Diabetes, Hyperthyroidism Past Surgical History Past Surgical History: Breast Biopsy, Total knee replacement, Tonsillectomy, Other Family History Family History: Cancer, Diabetes, Hypertension, Osteo Arthiritis, Stroke Social History ALCOHOL: none Drugs: None Lives: Alone Current Problem List Problem List Problems Medical Problems: (1) Altered mental status Status: Acute Current Medications Current Medications Current Medications Ondansetron HCl (Zofran) 4 mg PRN Q8HRS PRN IV NAUSEA/VOMITING; Start at 12:45; Stop 07/16/17 at 12:44; Status DC Fentanyl Citrate (Fentanyl 2ml Vial) 50 mcg PRN Q1HR PRN IV PAIN; Start at 12:45; Stop 07/16/17 at 12:44; Status DC Amlodipine Besylate (Norvasc) 5 mg DAILY PO Last administered on 07/16/17 09: 02; Start 07/15/17 at 16:30 Aspirin (Bridgette Aspirin) 325 mg DAILY PO Last administered on 07/17/17 07:58; Start 07/15/17 at 16:30 Atorvastatin Calcium (Lipitor) 20 mg QHS PO Last administered on 07/16/17 21: 06; Start 07/15/17 at 21:00 Cyclosporine (Restasis) 1 drop HS OU Last administered on 07/16/17 21:03; Start 07/15/17 at 21:00 Diphenoxylate HCl/ Atropine (Lomotil) 1 tab PRN Q3HRS PRN PO DIARRHEA; Start 07/15/17 at 15:45; Stop 07/16/17 at 10:30; Status DC Ergocalciferol (Vitamin D2) 50,000 unit Fr PO ; Start 07/19/17 at 09:00 Famotidine (Pepcid) 20 mg DAILY PO Last administered on 07/17/17 07:59; Start 07/15/17 at 16:30 Hydralazine HCl (Apresoline) 100 mg TID PO Last administered on 07/16/17 21: 05; Start 07/15/17 at 16:30 Latanoprost (Xalatan) 1 drop QPM OU Last administered on 07/16/17 17:08; Start 07/15/17 at 18:00 Lisinopril (Prinivil) 20 mg DAILY PO Last administered on 07/16/17 09:02; Start 07/15/17 at 16:30 Montelukast Sodium (Singulair) 10 mg HS PO Last administered on 07/16/17 21: 06; Start 07/15/17 at 21:00 Oxycodone/ Acetaminophen (Percocet 5/325) 2 tab PRN Q6HRS PRN PO PAIN Last administered on 07/16/17 09:03; Start 07/15/17 at 15:45; Stop 07/16/17 at 10 :30; Status DC Sevelamer Carbonate (Renvela) 800 mg TIDWMEALS PO Last administered on 07:57; Start 07/15/17 at 17:00 Gabapentin (Neurontin) 300 mg TID PO Last administered on 07/16/17 09:01; Start 07/15/17 at 21:00; Stop 07/16/17 at 10:30; Status DC Insulin Aspart (NovoLOG) 0-5 UNITS TIDWMEALS SQ ; Start 07/15/17 at 17:00 Dextrose (Dextrose 50%-Water Syringe) 12.5 gm PRN Q15MIN PRN IV SEE COMMENTS Last administered on 07/15/17 16:45; Start 07/15/17 at 15:45 Insulin Aspart (NovoLOG) 0-5 UNITS TIDWMEALS SQ ; Start 07/16/17 at 08:00; Stop 07/16/17 at 08:00; Status DC Dextrose (Dextrose 50%-Water Syringe) 12.5 gm PRN Q15MIN PRN IV SEE COMMENTS; Start 07/15/17 at 22:00; Stop 07/15/17 at 22:08; Status DC Heparin Sodium (Porcine) (Heparin Sq) 5,000 unit Q8HRS SQ ; Start 07/15/17 at 23:00 Oxycodone/ Acetaminophen (Percocet 5/325) 1 tab PRN Q6HRS PRN PO PAIN Last administered on 07/17/17 08:00; Start 07/16/17 at 10:30 Methylphenidate HCl (Ritalin) 5 mg BIDACBL PO Last administered on 07/17/17 07:57; Start 07/16/17 at 11:30 Sodium Chloride 1,000 ml @ 1,000 mls/hr Q1H PRN IV hypotension; Start at 08:26; Stop 07/17/17 at 14:25 Sodium Chloride 1,000 ml @ 400 mls/hr Q2H30M PRN IV PATENCY; Start 07/17/17 at 08:26; Stop 07/17/17 at 20:25 Info (PHARMACY MONITORING -- do not chart) 1 each PRN DAILY PRN MC SEE COMMENTS ; Start 07/17/17 at 08:30 Info (PHARMACY MONITORING -- do not chart) 1 each PRN DAILY PRN MC SEE COMMENTS ; Start 07/17/17 at 08:30; Status UNV Active Scripts Active Atorvastatin Calcium 20 Mg Tablet 20 Mg PO QHS 30 Days Amlodipine Besylate 5 Mg Tablet 5 Mg PO DAILY Lisinopril 20 Mg Tablet 20 Mg PO DAILY Latanoprost 2.5 Ml Drops 1 Drop OU QPM Vitamin D2 (Ergocalciferol (Vitamin D2)) 50,000 Unit Capsule 50,000 Unit PO FR Hydralazine Hcl 50 Mg Tablet 100 Mg PO TID Reported Restasis (Cyclosporine) 1 Each Droperette 1 Drop EACHEYE HS Singulair Tablet (Montelukast Sodium) 10 Mg Tablet 10 Mg PO Renvela (Sevelamer Carbonate) 800 Mg Tablet 800 Mg PO TIDWMEALS+1EXTRA@DIN Lomotil Tablet (Diphenoxylate Hcl/Atropine) 1 Each Tablet Unknown Dose PO Percocet 5-325 Mg Tablet (Oxycodone/Acetaminophen) 1 Each Tablet 2 Tab PO Q 6 HRS PRN Pepcid (Famotidine) 20 Mg Tablet 20 Mg PO Gabapentin Oral Solution (Gabapentin) 300 Mg/6 Ml Solution 300 Mg PO TID Nephro-Alexandra Rx Tablet (Vit B Cmplx 3/Fa/Vit C/Biotin) 1 Each Tablet 1 Each PO Aspirin 325 Mg Tablet 325 Mg PO Allergies Allergies: Coded Allergies: codeine (Verified Allergy, Intermediate, 08/10/15) Takes percocet at home neomycin (Verified Allergy, Intermediate, 07/15/17) polymyxin B (Verified Allergy, Intermediate, 07/15/17) sulfamethoxazole (Verified Allergy, Intermediate, 07/15/17) trimethoprim (Verified Allergy, Intermediate, 07/15/17) ROS Review of System UNABLE TO OBTAIN Physical Exam General: Alert, Oriented X3, Cooperative, No acute distress HEENT: Atraumatic, PERRLA Lungs: Clear to auscultation Heart: Regular rate, Normal S1 Abdomen: Normal bowel sounds, Soft Extremities: No clubbing Neuro: Normal speech, Other (SOMNOLENT) Psych/Mental Status: Other (SLEEPY) MUSCULOSKELETAL: No deformity, No swelling Vitals VITALS Vital Signs Date Time Temp Pulse Resp B/P (MAP) Pulse Ox O2 Delivery O2 Flow Rate FiO2 07/17/17 08:00 20 98 Room Air 07/17/17 07:59 80 117/52 07/17/17 07:00 97.9 97.9 Labs Labs Laboratory Tests Test 07/15/17 16:21 07/15/17 16:52 07/15/17 21:05 07/16/17 04:41 Glucose (Fingerstick) 57 mg/dL (70-99) 141 mg/dL (70-99) 123 mg/dL (70-99) White Blood Count 8.5 x10^3/uL (4.0-11.0) Red Blood Count 3.24 x10^6/uL (3.50-5.40) Hemoglobin 9.2 g/dL (12.0-15.5) Hematocrit 29.6 % (36.0-47.0) Mean Corpuscular Volume 91 fL (79-100) Mean Corpuscular Hemoglobin 28 pg (25-35) Mean Corpuscular Hemoglobin Concent 31 g/dL (31-37) Red Cell Distribution Width 17.6 % (11.5-14.5) Platelet Count 321 x10^3/uL (140-400) Neutrophils (%) (Auto) 65 % (31-73) Lymphocytes (%) (Auto) 16 % (24-48) Monocytes (%) (Auto) 16 % (0-9) Eosinophils (%) (Auto) 3 % (0-3) Basophils (%) (Auto) 1 % (0-3) Neutrophils # (Auto) 5.5 x10^3uL (1.8-7.7) Lymphocytes # (Auto) 1.3 x10^3/uL (1.0-4.8) Monocytes # (Auto) 1.4 x10^3/uL (0.0-1.1) Eosinophils # (Auto) 0.2 x10^3/uL (0.0-0.7) Basophils # (Auto) 0.0 x10^3/uL (0.0-0.2) Sodium Level 139 mmol/L (136-145) Potassium Level 4.8 mmol/L (3.5-5.1) Chloride Level 100 mmol/L (98-107) Carbon Dioxide Level 28 mmol/L (21-32) Anion Gap 11 (6-14) Blood Urea Nitrogen 37 mg/dL (7-20) Creatinine 5.7 mg/dL (0.6-1.0) Estimated GFR (Cockcroft-Gault) 9.0 Glucose Level 73 mg/dL (70-99) Calcium Level 8.4 mg/dL (8.5-10.1) Vitamin B12 Level 751 pg/mL (247-911) 25-Hydroxy Vitamin D Total 12.5 ng/mL (30-100) Thyroid Stimulating Hormone (TSH) 4.714 uIU/mL (0.358-3.74) Test 07/16/17 07:35 07/16/17 08:28 07/16/17 11:03 07/16/17 16:40 Glucose (Fingerstick) 68 mg/dL (70-99) 79 mg/dL (70-99) 123 mg/dL (70-99) 128 mg/dL (70-99) Test 07/17/17 07:34 Glucose (Fingerstick) 95 mg/dL (70-99) Laboratory Tests Test 07/16/17 16:40 07/17/17 07:34 Glucose (Fingerstick) 128 mg/dL (70-99) 95 mg/dL (70-99) Assessment/Plan Assessment/Plan IMP ESRD ANEMIA DM II HTN ENCEPHALOPATHY PLAN NEURO EVAL HD TODAY UF TO DW CONT SAME MEDS PATRICK MATTA MD Jul 17, 2017 11:43
--- NOTE | 2017-07-17 15:28 | RAD ---
EXAMINATION: Magnetic resonance imaging (MRI) of the brain and brainstem without contrast 07/17/2017 8:00 AM HISTORY: Mental status changes. Weakness. History of stroke. TECHNIQUE: Multiplanar multi-weighted MRI of the brain and brainstem was performed without intravenous contrast using the general brain protocol. COMPARISON: CT head July 15, 2017 FINDINGS: The scalp and calvarium are normal. The superior sagittal sinus demonstrates normal venous flow. There is low T1 signal involving the body of the corpus callosum. Otherwise, the corpus callosum is mildly thinned. The posterior fossa is unremarkable. The pituitary and sella are normal. There is a remote lacunar infarct involving the right reza. Remote lacunar infarct is noted in the right thalamus and right basal ganglia. T2/FLAIR signal hyperintensity in the periventricular and subcortical white matter with areas of confluence are compatible with moderate chronic small vessel ischemic changes. Diffusion weighted images reveal no hyperintensities to suggest acute cerebral infarction. The susceptibility weighted sequences reveal no evidence of acute or chronic hemorrhage. The ventricles are normal in size and position without evidence of hydrocephalus. The paranasal sinuses are normal. The visualized portions of the mastoids are unremarkable. The orbits appear normal. Normal flow voids are demonstrated in the carotid arteries and basilar artery. IMPRESSION: No evidence for acute or subacute ischemia. Moderate chronic small vessel ischemic changes are noted in the periventricular subcortical white matter (Fazekas grade 2). Remote lacunar infarcts are noted in the right reza, right thalamus and right basal ganglia. There is focal signal alteration involving the body of the corpus callosum. Recommend correlation with any prior catheter placement or surgery. Electronically signed by: Amelia Tran MD (07/17/2017 3:25 PM) [id number]
--- NOTE | 2017-07-17 17:28 | PDOC2 ---
CONSULT Date of Consult Date of Consult DATE: 07/17/17 TIME: 15:00 Reason for Consult Reason for Consult: right shoulder pain Identification/Chief Complaint Chief Complaint right shoulder pain Problems: Source Source: Chart review, Patient History of Present Illness Reason for Visit: The patient is a 67 year old female patient with multiple medical problems including end-stage renal disease, requiring dialysis and diabetes. She has right rotator cuff tear arthropathy which she has seen Dr. Crowder for in the clinic. She states her right shoulder hurts all the time, even at rest. The pain is worse with attempted motion. She has tried a cortisone injection in the right shoulder, with relief of only one day. She states the left shoulder is starting to hurt now too. She denies any falls since her previous admission last week. She was admitted due to AMS after HD on Saturday. She does dialysis M, W, F. Past Medical History Cardiovascular: HTN, Hyperlipidemia CENTRAL NERVOUS SYSTEM: CVA, Periperal neuropathy GI: Constipation Heme/Onc: Anemia NOS Musculoskeletal: Osteoarthritis Renal/: Chronic renal failure (HD on Sat, Sat, Sat) Endocrine: Diabetes, Hyperthyroidism Past Surgical History Past Surgical History: Breast Biopsy, Total knee replacement (bilateral), Tonsillectomy, Other Family History Family History: Cancer, Diabetes, Hypertension, Osteo Arthiritis, Stroke Social History No ALCOHOL: none Drugs: None Lives: Alone Current Problem List Problem List Problems Medical Problems: (1) Altered mental status Status: Acute Current Medications Current Medications Current Medications Ondansetron HCl (Zofran) 4 mg PRN Q8HRS PRN IV NAUSEA/VOMITING; Start at 12:45; Stop 07/16/17 at 12:44; Status DC Fentanyl Citrate (Fentanyl 2ml Vial) 50 mcg PRN Q1HR PRN IV PAIN; Start at 12:45; Stop 07/16/17 at 12:44; Status DC Amlodipine Besylate (Norvasc) 5 mg DAILY PO Last administered on 07/16/17 09: 02; Start 07/15/17 at 16:30 Aspirin (Bridgette Aspirin) 325 mg DAILY PO Last administered on 07/17/17 07:58; Start 07/15/17 at 16:30 Atorvastatin Calcium (Lipitor) 20 mg QHS PO Last administered on 07/16/17 21: 06; Start 07/15/17 at 21:00 Cyclosporine (Restasis) 1 drop HS OU Last administered on 07/16/17 21:03; Start 07/15/17 at 21:00 Diphenoxylate HCl/ Atropine (Lomotil) 1 tab PRN Q3HRS PRN PO DIARRHEA; Start 07/15/17 at 15:45; Stop 07/16/17 at 10:30; Status DC Ergocalciferol (Vitamin D2) 50,000 unit Fr PO ; Start 07/19/17 at 09:00 Famotidine (Pepcid) 20 mg DAILY PO Last administered on 07/17/17 07:59; Start 07/15/17 at 16:30 Hydralazine HCl (Apresoline) 100 mg TID PO Last administered on 07/17/17 13: 25; Start 07/15/17 at 16:30 Latanoprost (Xalatan) 1 drop QPM OU Last administered on 07/16/17 17:08; Start 07/15/17 at 18:00 Lisinopril (Prinivil) 20 mg DAILY PO Last administered on 07/16/17 09:02; Start 07/15/17 at 16:30 Montelukast Sodium (Singulair) 10 mg HS PO Last administered on 07/16/17 21: 06; Start 07/15/17 at 21:00 Oxycodone/ Acetaminophen (Percocet 5/325) 2 tab PRN Q6HRS PRN PO PAIN Last administered on 07/16/17 09:03; Start 07/15/17 at 15:45; Stop 07/16/17 at 10 :30; Status DC Sevelamer Carbonate (Renvela) 800 mg TIDWMEALS PO Last administered on 13:23; Start 07/15/17 at 17:00 Gabapentin (Neurontin) 300 mg TID PO Last administered on 07/16/17 09:01; Start 07/15/17 at 21:00; Stop 07/16/17 at 10:30; Status DC Insulin Aspart (NovoLOG) 0-5 UNITS TIDWMEALS SQ ; Start 07/15/17 at 17:00 Dextrose (Dextrose 50%-Water Syringe) 12.5 gm PRN Q15MIN PRN IV SEE COMMENTS Last administered on 07/15/17 16:45; Start 07/15/17 at 15:45 Insulin Aspart (NovoLOG) 0-5 UNITS TIDWMEALS SQ ; Start 07/16/17 at 08:00; Stop 07/16/17 at 08:00; Status DC Dextrose (Dextrose 50%-Water Syringe) 12.5 gm PRN Q15MIN PRN IV SEE COMMENTS; Start 07/15/17 at 22:00; Stop 07/15/17 at 22:08; Status DC Heparin Sodium (Porcine) (Heparin Sq) 5,000 unit Q8HRS SQ ; Start 07/15/17 at 23:00 Oxycodone/ Acetaminophen (Percocet 5/325) 1 tab PRN Q6HRS PRN PO PAIN Last administered on 07/17/17 08:00; Start 07/16/17 at 10:30 Methylphenidate HCl (Ritalin) 5 mg BIDACBL PO Last administered on 07/17/17 13:23; Start 07/16/17 at 11:30 Sodium Chloride 1,000 ml @ 1,000 mls/hr Q1H PRN IV hypotension; Start at 08:26; Stop 07/17/17 at 14:25; Status DC Sodium Chloride 1,000 ml @ 400 mls/hr Q2H30M PRN IV PATENCY; Start 07/17/17 at 08:26; Stop 07/17/17 at 20:25 Info (PHARMACY MONITORING -- do not chart) 1 each PRN DAILY PRN MC SEE COMMENTS ; Start 07/17/17 at 08:30 Info (PHARMACY MONITORING -- do not chart) 1 each PRN DAILY PRN MC SEE COMMENTS ; Start 07/17/17 at 08:30; Status UNV Active Scripts Active Atorvastatin Calcium 20 Mg Tablet 20 Mg PO QHS 30 Days Amlodipine Besylate 5 Mg Tablet 5 Mg PO DAILY Lisinopril 20 Mg Tablet 20 Mg PO DAILY Latanoprost 2.5 Ml Drops 1 Drop OU QPM Vitamin D2 (Ergocalciferol (Vitamin D2)) 50,000 Unit Capsule 50,000 Unit PO FR Hydralazine Hcl 50 Mg Tablet 100 Mg PO TID Reported Restasis (Cyclosporine) 1 Each Droperette 1 Drop EACHEYE HS Singulair Tablet (Montelukast Sodium) 10 Mg Tablet 10 Mg PO Renvela (Sevelamer Carbonate) 800 Mg Tablet 800 Mg PO TIDWMEALS+1EXTRA@DIN Lomotil Tablet (Diphenoxylate Hcl/Atropine) 1 Each Tablet Unknown Dose PO Percocet 5-325 Mg Tablet (Oxycodone/Acetaminophen) 1 Each Tablet 2 Tab PO Q 6 HRS PRN Pepcid (Famotidine) 20 Mg Tablet 20 Mg PO Gabapentin Oral Solution (Gabapentin) 300 Mg/6 Ml Solution 300 Mg PO TID Nephro-Alexandra Rx Tablet (Vit B Cmplx 3/Fa/Vit C/Biotin) 1 Each Tablet 1 Each PO Aspirin 325 Mg Tablet 325 Mg PO Allergies Allergies: Coded Allergies: codeine (Verified Allergy, Intermediate, 08/10/15) Takes percocet at home neomycin (Verified Allergy, Intermediate, 07/15/17) polymyxin B (Verified Allergy, Intermediate, 07/15/17) sulfamethoxazole (Verified Allergy, Intermediate, 07/15/17) trimethoprim (Verified Allergy, Intermediate, 07/15/17) Physical Exam General: Alert, Oriented X3, No acute distress, Other (reluctant to participate in exam of shoulder) HEENT: Atraumatic, Other (blind in right eye) Lungs: Normal air movement Heart: Regular rate Abdomen: Soft Extremities: No clubbing, No cyanosis, Normal pulses Skin: No rashes, No breakdown, No significant lesion Neuro: Normal speech, Sensation intact Psych/Mental Status: Mental status NL, Mood NL MUSCULOSKELETAL: Other (She is reluctant to participate in shoudler exam. Upon inspection of bilateral shoulders there are no skin lession, erythema, or ecchymosis noted. No masses or detectable effusion. The right shoulder is tender to palpation anterolaterally. Active range of motion: FE 40 degrees, abduction 60 degrees, IR belt line. Left arm fistula. Slot Shift Supervisor strength symmetric. Neurovascularly intact distally.) Vitals VITALS Vital Signs Date Time Temp Pulse Resp B/P (MAP) Pulse Ox O2 Delivery O2 Flow Rate FiO2 07/17/17 13:25 83 144/63 07/17/17 09:00 20 98 Room Air 07/17/17 07:00 97.9 97.9 Labs Labs Laboratory Tests Test 07/15/17 21:05 07/16/17 04:41 07/16/17 07:35 07/16/17 08:28 Glucose (Fingerstick) 123 mg/dL (70-99) 68 mg/dL (70-99) 79 mg/dL (70-99) White Blood Count 8.5 x10^3/uL (4.0-11.0) Red Blood Count 3.24 x10^6/uL (3.50-5.40) Hemoglobin 9.2 g/dL (12.0-15.5) Hematocrit 29.6 % (36.0-47.0) Mean Corpuscular Volume 91 fL (79-100) Mean Corpuscular Hemoglobin 28 pg (25-35) Mean Corpuscular Hemoglobin Concent 31 g/dL (31-37) Red Cell Distribution Width 17.6 % (11.5-14.5) Platelet Count 321 x10^3/uL (140-400) Neutrophils (%) (Auto) 65 % (31-73) Lymphocytes (%) (Auto) 16 % (24-48) Monocytes (%) (Auto) 16 % (0-9) Eosinophils (%) (Auto) 3 % (0-3) Basophils (%) (Auto) 1 % (0-3) Neutrophils # (Auto) 5.5 x10^3uL (1.8-7.7) Lymphocytes # (Auto) 1.3 x10^3/uL (1.0-4.8) Monocytes # (Auto) 1.4 x10^3/uL (0.0-1.1) Eosinophils # (Auto) 0.2 x10^3/uL (0.0-0.7) Basophils # (Auto) 0.0 x10^3/uL (0.0-0.2) Sodium Level 139 mmol/L (136-145) Potassium Level 4.8 mmol/L (3.5-5.1) Chloride Level 100 mmol/L (98-107) Carbon Dioxide Level 28 mmol/L (21-32) Anion Gap 11 (6-14) Blood Urea Nitrogen 37 mg/dL (7-20) Creatinine 5.7 mg/dL (0.6-1.0) Estimated GFR (Cockcroft-Gault) 9.0 Glucose Level 73 mg/dL (70-99) Calcium Level 8.4 mg/dL (8.5-10.1) Vitamin B12 Level 751 pg/mL (247-911) 25-Hydroxy Vitamin D Total 12.5 ng/mL (30-100) Thyroid Stimulating Hormone (TSH) 4.714 uIU/mL (0.358-3.74) Test 07/16/17 11:03 07/16/17 16:40 07/17/17 07:34 07/17/17 13:14 Glucose (Fingerstick) 123 mg/dL (70-99) 128 mg/dL (70-99) 95 mg/dL (70-99) 83 mg/dL (70-99) Laboratory Tests Test 07/17/17 07:34 07/17/17 13:14 Glucose (Fingerstick) 95 mg/dL (70-99) 83 mg/dL (70-99) Images Images X-rays of the shoulder and arm were reviewed. No fracture, dislocation, or acute bony abnormality. There are severe degenerative changes seen consistent with cuff tear arthropathy. Assessment/Plan Assessment/Plan Right shoulder cuff tear arthropathy. Treatment options were discussed. I again offered her a cortisone injection for hopeful symptom relief, but she states the previous injection only provided a day of relief and she isn't interested in trying another. She states she wants surgery. We discussed her being a particularly high risk surgical candidate due to her multiple medical problems. She has an appointment with Dr. Crowder on and can discuss further treatment options. CAREN BOSTON Jul 17, 2017 17:28
[2017-07-17] MEDS: LATANOPROST 0.005% OPHTH SOLUTION 2.5ML BOTTLE. OU SCH (17:56)
--- NOTE | 2017-07-17 18:05 | PDOC ---
PROGRESS NOTES Assessment Assessment Metabolic encephalopathy. Confusion. Weakness, general Renal failure on dialysis. DM HTN HLD HCV? Hyperparathyroidism Vit D deficiency. Peripheral neuropathy, LE. Old lacunar infarcts in right reza, thalamus and BG. Obesity. Dementia features. No acute CVA this time. RECOMMENDATIONS/PLAN: Continue ASA 325 mg daily. Continue Lipitor HS. Vit D and calcium supplement. Treat medical diseases. OT/PT. HISTORY OF THE PRESENT ILLNESS: 67-y-old AA female patient with above medical diseases and renal failure on dialysis. She had MS changes, confusion during dialysis and generalized weakness for prolonged time. She was admitted for further evaluation. PAST MEDICAL HISTORY: Diabetes type 2, off insulin completely. ESRD on dialysis. Hypertension Hyperlipidemia Chronic degenerative shoulder disease. 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 PAST SURGICAL HISTORY: Bilateral knee replacements Dialysis shunt in the left arm. ALLERGIES: CODEINE, NEOMYCIN, POLYMYXIN, SULFAMETHOXAZOLE, TRIMETHOPRIM. MEDICATIONS: See Mar. PERSONAL HISTORY: Smoked for 30 years but quit recently. Denies alcohol or drug abuse. SOCIAL HISTORY: Lives at home. Wheelchair condition. Blind in the right eye and limited vision in the left eye. REVIEW OF SYSTEMS: Constitutional: Obesity. Head: No recent traumatic brain or head injury. Skin: No edema, or rash. Ear: No infection. Eyes: No vision loss or color blindness. Nose: No bleeding or purulent discharges. Hearing: Hearing decrease. Neck: No injury. Breast: No history of cancer, masses,or discharges. Cardiac: HTN, HLD. Pulmonary: No COPD. GI: No GI ulcer, GI bleeding. Urinary/genital: ESRD on dialysis. Endocrinologic: Diabetes Mellitus, hyperparathyroidism, obesity. Skeletomuscular: Generalized weakness. Neurological: see HP. Psychiatric: Denies drug use/abuse. Otherwise, not [id number] review of systems. PHYSICAL EXAMINATION: General appearance is in subacute distress. HEENT: Normocephalic and nontraumatic. Eyes, nose, ears, and throat are unremarkable. Neck is supple. No lymphadenopathy. No crepitus. Cardiovascular: S1, S2, regular rate and rhythm. Pulmonary: Clear to auscultation bilaterally. Abdomen: Bowel sounds are positive. Abdomen is soft, nontender, and nondistended. Extremities: No rash, lesions, or edema. NEUROLOGICAL EXAMINATION: Awake. Oriented to place and person but not to time, reactions were slow. PERRL. EOMI. CN: no focal findings. Muscle tone: within normal. Muscle strength: 4 UE, 4- LE DTR: 2- UE, 0 at knee, surgical scars noted in knees. Plantar reflex: Neutral response bilaterally Gait: not examined in bed. Sensory exam: no abnormal findings. No acute cerebellar signs elicited. F-T-N test fine Objective Objective Vital Signs Date Time Temp Pulse Resp B/P (MAP) Pulse Ox O2 Delivery O2 Flow Rate FiO2 07/17/17 13:25 83 144/63 07/17/17 09:00 20 98 Room Air 07/17/17 07:00 97.9 97.9 Intake and Output 07/17/17 07:00 Intake Total 830 ml Balance 830 ml Intake Oral 830 ml # Voids 1 Vitals Signs Vitals VS - Last 72 Hours, by Label Date Time Temp Pulse Resp B/P (MAP) Pulse Ox O2 Delivery O2 Flow Rate FiO2 07/17/17 13:25 83 144/63 07/17/17 09:00 20 98 Room Air 07/17/17 08:00 Room Air 07/17/17 08:00 20 98 Room Air 07/17/17 07:59 80 117/52 07/17/17 07:58 80 117/52 07/17/17 07:57 80 117/52 07/17/17 07:00 97.9 82 20 106/45 (65) 97 Room Air 97.9 07/17/17 03:09 97.7 80 20 117/52 (73) 98 Room Air 97.7 07/16/17 23:00 97.6 84 20 135/85 (102) 98 Room Air 97.6 07/16/17 21:06 18 95 Room Air 07/16/17 21:05 86 123/57 07/16/17 19:52 Room Air 07/16/17 19:00 97.9 83 20 125/49 (74) 95 Room Air 97.9 07/16/17 16:59 20 97 Room Air 07/16/17 16:55 75 103/43 07/16/17 15:01 98.1 75 19 103/43 (63) 97 Room Air 98.1 07/16/17 11:00 97.9 78 19 91/33 (52) 97 Room Air 97.9 07/16/17 09:03 20 91 Room Air 07/16/17 09:02 75 111/56 07/16/17 09:02 75 111/56 07/16/17 09:01 75 111/56 07/16/17 08:00 Room Air 07/16/17 07:00 98.1 75 20 111/56 (74) 91 Room Air 98.1 Laboratory Laboratory Laboratory Tests Test 07/17/17 07:34 07/17/17 13:14 07/17/17 16:48 Glucose (Fingerstick) 95 mg/dL (70-99) 83 mg/dL (70-99) 145 mg/dL (70-99) Medication Medications Current Medications Ergocalciferol (Vitamin D2) 50,000 unit Fr PO ; Start 07/19/17 at 09:00 Info (PHARMACY MONITORING -- do not chart) 1 each PRN DAILY PRN MC SEE COMMENTS ; Start 07/17/17 at 08:30 Info (PHARMACY MONITORING -- do not chart) 1 each PRN DAILY PRN MC SEE COMMENTS ; Start 07/17/17 at 08:30; Status UNV Sodium Chloride 1,000 ml @ 400 mls/hr Q2H30M PRN IV PATENCY; Start 07/17/17 at 08:26; Stop 07/17/17 at 20:25 Sodium Chloride 1,000 ml @ 1,000 mls/hr Q1H PRN IV hypotension; Start at 08:26; Stop 07/17/17 at 14:25; Status DC Comment Review of Relevant I have reviewed the following items jason (where applicable) has been applied. CHAD LOPEZ MD Jul 17, 2017 18:05
[2017-07-17 19:00] VITALS: BP 132/54
[2017-07-17] MEDS: ATORVASTATIN CALCIUM 20 MG TABLET PO SCH (21:14)
[2017-07-17] MEDS: MONTELUKAST SODIUM 10 MG TABLET. PO SCH (21:16)
[2017-07-17] MEDS: cycloSPORINE 0.05% OPTH 1 DROP DROPERETTE OU SCH (21:16)
[2017-07-17 23:17] VITALS: BP 146/42
[2017-07-18 03:09] VITALS: BP 121/44
[2017-07-18] MEDS: HEPARIN PF for SUB-Q USE 5,000 UNIT/0.5 ML VIAL. SQ SCH ×2 (04:44→13:47)
[2017-07-18] MEDS: METHYLPHENIDATE HCL 5 MG TABLET PO SCH ×2 (07:41→12:08)
[2017-07-18] MEDS: SEVELAMER CARBONATE 800 MG TABLET. PO SCH ×2 (07:44→12:08)
[2017-07-18 07:50] VITALS: BP 152/71
[2017-07-18] MEDS: INSULIN ASPART 300 UNITS/3 ML INSULN.PEN SQ SCH ×2 (08:00→12:00)
[2017-07-18] MEDS: oxyCODONE/APAP 5/325 1 TAB TABLET PO PRN ×2 (08:48→16:20)
[2017-07-18] MEDS: amLODIPine BESYLATE 5 MG TABLET PO SCH (08:49)
[2017-07-18] MEDS: ASPIRIN 325 MG TABLET PO SCH (08:49)
[2017-07-18] MEDS: FAMOTIDINE 20 MG TABLET. PO SCH (08:49)
[2017-07-18] MEDS: LISINOPRIL 20 MG TABLET PO SCH (08:50)
--- NOTE | 2017-07-18 10:26 | PN ---
DATE: 07/18/2017 SUBJECTIVE: The patient feels better. She is sitting next to the bed and just finished her breakfast. OBJECTIVE: VITAL SIGNS: Afebrile, vitals stable. HEENT: On examination, head is atraumatic. Pupils equal. CARDIOVASCULAR: S1, S2. LUNGS: Clear. ABDOMEN: Soft. EXTREMITIES: No edema. LABORATORY DATA: The patient's blood sugar stays more than 100. FINAL IMPRESSION: 1. Metabolic encephalopathy. 2. End-stage renal disease, on dialysis Saturday, Saturday and Saturday. 3. Possible narcolepsy versus sleep apnea. PLAN: At this time, the patient had an MRI of the brain that was negative for acute stroke, had some small vessel disease. EEG done, report is pending. The patient is scheduled for dialysis on Saturday and she is willing to go to half-way for a week. The patient is being discharged to half-way and started on Ritalin to help with narcolepsy. Outpatient sleep study and discharged to half-way and see how she improves. The patient still has lot of pain in the shoulder. She did not want any injection into the shoulder joint, but wants replacement. The patient is on pain medications, Percocet for pain, but that will also cause the patient to be more sleepy and see how the patient's condition improves. ESPERANZA JENNINGS MD DR: BRITTANI/macarena JOB#: [id number] / [id number]
[2017-07-18 10:30] VITALS: BP 100/53
--- NOTE | 2017-07-18 11:40 | PDOC ---
PROGRESS NOTES Subjective Subjective feels ok ,rt shoulder pain Objective Objective Vital Signs Date Time Temp Pulse Resp B/P (MAP) Pulse Ox O2 Delivery O2 Flow Rate FiO2 07/18/17 09:48 18 07/18/17 08:50 80 152/71 07/18/17 08:48 Room Air 07/18/17 07:50 99.0 99 99.0 Intake and Output 07/18/17 07:00 Intake Total 450 ml Output Total 0 ml Balance 450 ml Intake Oral 450 ml Output Urine Total 0 ml # Voids 2 Physical Exam Abdomen: Soft Heart: Regular rate Extremities: No clubbing, No cyanosis, Normal pulses General: Alert, Oriented X3, No acute distress, Other (reluctant to participate in exam of shoulder) HEENT: Atraumatic, Other (blind in right eye) Lungs: Normal air movement MUSCULOSKELETAL: Other (She is reluctant to participate in shoudler exam. Upon inspection of bilateral shoulders there are no skin lession, erythema, or ecchymosis noted. No masses or detectable effusion. The right shoulder is tender to palpation anterolaterally. Active range of motion: FE 40 degrees, abduction 60 degrees, IR belt line. Left arm fistula. Hoof Trimmer strength symmetric. Neurovascularly intact distally.) Neck: Supple Neuro: Normal speech, Sensation intact Psych/Mental Status: Mental status NL, Mood NL Skin: No rashes, No breakdown, No significant lesion Diagnosis Problem List Problems Medical Problems: (1) Altered mental status Status: Acute Assessment Assessment Problems Medical Problems: (1) Altered mental status Status: Acute FINAL IMPRESSION: 1. Change in mental status after dialysis improved ,back to base line. 2. Possibility of hypoglycemia , no more hypoglycemia. 3. Chronic pain syndrome, right shoulder rotator cuff tear. 4. End-stage renal disease, on dialysis. 5. Hypertension. 6. Hyperlipidemia. 7. History of diabetes, but not taking any medications or insulin now. 8. KAT ? Narcolepsy PLAN: [facility] -neg MRI brain ,no acute cva,lacunar infarts EEG done report pending. nocturnal desaturation -neg for hypoxia. Dialysis tomorrow. SNU today, spoke with social worker health services. needs out pt sleep study spoke with nephrology Problems: Plan Plan of Care Problems Medical Problems: (1) Altered mental status Status: Acute Comment Review of Relevant I have reviewed the following items jason (where applicable) has been applied. Labs Laboratory Tests Test 07/17/17 13:14 07/17/17 16:48 07/17/17 21:38 07/18/17 07:58 Glucose (Fingerstick) 83 mg/dL (70-99) 145 mg/dL (70-99) 149 mg/dL (70-99) 76 mg/dL (70-99) Test 07/18/17 11:01 Glucose (Fingerstick) 133 mg/dL (70-99) Medications Current Medications Ergocalciferol (Vitamin D2) 50,000 unit Fr PO ; Start 07/19/17 at 09:00 Vitals/I & O Vital Sign - Last 24 Hours 07/17/17 07/17/17 07/17/17 07/17/17 13:25 18:48 19:00 19:48 Temp 98.1 98.1 Pulse 83 90 Resp 20 18 B/P (MAP) 144/63 132/54 (80) Pulse Ox 98 95 98 O2 Delivery Room Air Room Air Room Air 07/17/17 07/17/17 07/17/17 07/18/17 20:01 21:15 23:17 03:09 Temp 97.9 98.8 97.9 98.8 Pulse 86 82 83 Resp 18 20 B/P (MAP) 149/65 146/42 (76) 121/44 (69) Pulse Ox 95 96 O2 Delivery Room Air Room Air Room Air 07/18/17 07/18/17 07/18/17 07/18/17 07:50 08:00 08:48 08:49 Temp 99.0 99.0 Pulse 80 80 Resp 18 18 B/P (MAP) 152/71 (98) 152/71 Pulse Ox 99 O2 Delivery Room Air Room Air Room Air 07/18/17 07/18/17 07/18/17 08:49 08:50 09:48 Pulse 80 80 Resp 18 B/P (MAP) 152/71 152/71 Intake and Output 07/17/17 07/17/17 07/18/17 15:00 23:00 07:00 Intake Total 200 ml 250 ml Output Total 0 ml Balance 200 ml 250 ml ESPERANZA JENNINGS MD Jul 18, 2017 11:40
--- NOTE | 2017-07-18 12:48 | PDOC ---
Renal-Progress Notes Subjective Notes Notes STABLE History of Present Illness Hx of present illness BETTER Vitals Vitals Vital Signs Date Time Temp Pulse Resp B/P (MAP) Pulse Ox O2 Delivery O2 Flow Rate FiO2 07/18/17 10:30 98.1 79 18 100/53 (69) 96 Room Air 98.1 Weight Weight [ ] I.O. Intake and Output Intake and Output 07/18/17 07:00 Intake Total 450 ml Output Total 0 ml Balance 450 ml Intake Oral 450 ml Output Urine Total 0 ml # Voids 2 Labs Labs Laboratory Tests Test 07/17/17 13:14 07/17/17 16:48 07/17/17 21:38 07/18/17 07:58 Glucose (Fingerstick) 83 mg/dL (70-99) 145 mg/dL (70-99) 149 mg/dL (70-99) 76 mg/dL (70-99) Test 07/18/17 11:01 Glucose (Fingerstick) 133 mg/dL (70-99) Review of Systems Constitutional: yes: weakness, alert, oriented Ears/Nose/Throat: Yes: no symptom reported Pulmonary: Yes no symptom reported Gastrointestional: Yes: no symptom reported Musculoskeletal: Yes: no symptom reported Skin: Yes no symptom reported Psychiatric/Neurological: Yes: no symptom reported Endocrine: Yes: no symptom reported Physical Exam General Appearance: no apparent distress Skin: warm Respiratory: bilateral CTA Heart: S1S2 Abdomen: soft, bowel sounds present Genitourinary: bladder flat Extremities: pulses present Neurology: alert, oriented Musculoskeletal: Osteoarthritis Assessment Assessment IMP DM II HTN ANEMIA ESRD ENCEPHALOPATHY ? NARCOLEPSY PLAN HD TOMORROW RITALIN TRIAL D/W ATTENDING PATRICK MATTA MD Jul 18, 2017 12:48
--- NOTE | 2017-07-18 13:52 | PDOC ---
PROGRESS NOTES Subjective Subjective Problems overnight: Objective Vital Signs Vital Signs Date Time Temp Pulse Resp B/P (MAP) Pulse Ox O2 Delivery O2 Flow Rate FiO2 07/18/17 13:46 100/53 07/18/17 10:30 98.1 79 18 96 Room Air 98.1 Labs Laboratory Tests Test 07/16/17 16:40 07/17/17 07:34 07/17/17 13:14 07/17/17 16:48 Glucose (Fingerstick) 128 mg/dL (70-99) 95 mg/dL (70-99) 83 mg/dL (70-99) 145 mg/dL (70-99) Test 07/17/17 21:38 07/18/17 07:58 07/18/17 11:01 Glucose (Fingerstick) 149 mg/dL (70-99) 76 mg/dL (70-99) 133 mg/dL (70-99) Laboratory Tests Test 07/17/17 16:48 07/17/17 21:38 07/18/17 07:58 07/18/17 11:01 Glucose (Fingerstick) 145 mg/dL (70-99) 149 mg/dL (70-99) 76 mg/dL (70-99) 133 mg/dL (70-99) Assessment Assessment POD# [], S/P [] Problems: Plan Plan of Care I spoke with the patient and discussed options for her right shoulder pain. She is a very poor surgical candidate and has end stage cuff tear arthropathy that may or may not be amenable to a rtsa. She will follow up with me after the new year for possible injection into the shoulders. AUBREY SIDHU MD Jul 18, 2017 13:52
[2017-07-18 14:30] VITALS: BP 132/60
--- NOTE | 2017-07-18 15:26 | RESP ---
DATE OF SERVICE: 07/16/2017 The patient's mean oxygen saturation remained around 94% with lowest of 80%; 59 minutes were spent in oxygen saturation of less than 90%. IMPRESSION: Nocturnal hypoxia. RECOMMENDATION: The patient would benefit from oxygen 2 liters at nighttime. In the meantime, if clinical suspicion for sleep apnea is high, then consider doing full polysomnogram. XIN GONZALES MD DR: DONOVAN/macarena JOB#: [id number] / [id number] Veronica Peguero MD
[2017-07-19] MEDS ORDERED: ERGOCALCIFEROL (VITAMIN D2) 50,000 UNIT CAPSULE. PO SCH (09:00)
[2017-07-19] MEDS ORDERED: FAMOTIDINE 20 MG TABLET. PO SCH (09:00)
--- NOTE | 2017-07-22 14:17 | EEG ---
DATE OF SERVICE: 07/17/2017 ELECTROENCEPHALOGRAM NUMBER: [id number] OBJECTIVE: This is a 67-year-old female patient with history of mental status changes. EEG was requested to evaluate cerebral activity. METHODS: Twenty electrodes were applied according to the international 10-20 electrode placement system. EKG monitoring, hyperventilation, intermittent photic stimulation, monopolar and bipolar montages are routinely utilized. The record was obtained on a digital system with video monitoring. FINDINGS: 1. Background: The patient was recorded in the awake, drowsy, and sleep states. The overall background amplitude is 10-20 microvolts. A posterior dominant rhythm of 6-8 Hz is observed. 2. Abnormalities: No specific epileptiform discharge or electrographic seizure is seen. No diffuse slowing. 3. Activation: Hyperventilation was performed with good efforts and normal response. Intermittent photic stimulation was performed with photic driving. IMPRESSION: This electroencephalogram is a mildly abnormal study for the awake, drowsy, and sleep states. The posterior dominant rhythm of 6-8 Hz is mildly slow for age. No focal, lateralizing, specific epileptiform discharge or electrographic seizure is seen. CHAD LOPEZ MD DR: DIEGO/macarena JOB#: [id number] / [id number] SHARAN
--- NOTE | 2017-07-23 16:37 | PDOC ---
Provider Note Provider Note Discharge summary dictated. #[id number] ESPERANZA JENNINGS MD Jul 23, 2017 16:37
--- NOTE | 2017-07-23 17:41 | DS ---
DATE OF DISCHARGE: 07/18/2017 REASON FOR ADMISSION TO THE HOSPITAL: Change in mental status. CONSULTATIONS: 1. Dr. Rollins. 2. Dr. Landers. PROCEDURES DONE: 1. CT head. 2. MRI of the brain. 3. Nocturnal desaturation study. 4. EEG. HOSPITAL COURSE: The patient is a 67-year-old female. The patient has renal failure, dialysis. She also has chronic shoulder problems. The patient was hard to arouse after dialysis, was brought to the hospital. She was not very responsive. CT head was negative. MRI of the brain negative for acute stroke. EEG negative for seizure activity. The patient was continued on hemodialysis 3 times a week. Her condition improved within 12 hours back to normal within 24 hours. This was the second time this happened. It was felt that the patient could have a narcolepsy and obstructive sleep apnea could be a component. The patient had a nocturnal desaturation study, which shows oxygen dropped down to 80% for 60 minutes and she was recommended 2 liters at night time and recommended outpatient sleep study. The patient was put on Ritalin 5 mg twice daily that is also helping her to be more awake at this point. The patient is discharged to [facility] unit for rehab, PT, OT and to keep an eye because this was the second admission within last 30 days. FINAL DIAGNOSES: 1. Mental status changes, metabolic encephalopathy. 2. Possible narcolepsy. 3. Nocturnal hypoxemia, possible sleep apnea. 4. End-stage renal disease, on dialysis. 5. Hypertension. 6. Hyperlipidemia. 7. History of diabetes. DISPOSITION: Discharged to [facility] for skill, oxygen 2 liters at night time. Continue dialysis 3 times a week. Started on Ritalin to keep her awake during the daytime. ESPERANZA JENNINGS MD DR: BRITTANI/macarena JOB#: [id number] / [id number]
== END 2017-07-18 16:34 | DRG 70 ==
LOC: ER 10:20 → 5 NORTH 12:51
PROVIDERS: ADMIT Internal Medicine; ATTEND Internal Medicine
DX: G93.41 Metabolic encephalopathy (principal); N18.6 End stage renal disease; E11.22 Type 2 diabetes mellitus with diabetic chronic kidney disease; E11.40 Type 2 diabetes mellitus with diabetic neuropathy, unspecified; I12.0 Hypertensive chronic kidney disease with stage 5 chronic kidney disease or end stage renal disease; M12.811 Other specific arthropathies, not elsewhere classified, right shoulder; E11.39 Type 2 diabetes mellitus with other diabetic ophthalmic complication; D64.9 Anemia, unspecified; E21.3 Hyperparathyroidism, unspecified; E55.9 Vitamin D deficiency, unspecified; E66.9 Obesity, unspecified; Z68.34 Body mass index [BMI] 34.0-34.9, adult; E78.5 Hyperlipidemia, unspecified; F03.90 Unspecified dementia, unspecified severity, without behavioral disturbance, psychotic disturbance, mood disturbance, and anxiety; H54.61 Unqualified visual loss, right eye, normal vision left eye; M75.101 Unspecified rotator cuff tear or rupture of right shoulder, not specified as traumatic; Z79.82 Long term (current) use of aspirin; Z82.3 Family history of stroke; Z82.49 Family history of ischemic heart disease and other diseases of the circulatory system; Z83.3 Family history of diabetes mellitus; Z86.73 Personal history of transient ischemic attack (TIA), and cerebral infarction without residual deficits; Z96.653 Presence of artificial knee joint, bilateral; Z99.2 Dependence on renal dialysis; E05.90 Thyrotoxicosis, unspecified without thyrotoxic crisis or storm; G89.29 Other chronic pain; K59.00 Constipation, unspecified; Z88.5 Allergy status to narcotic agent; Z88.1 Allergy status to other antibiotic agents; Z88.2 Allergy status to sulfonamides; Z88.8 Allergy status to other drugs, medicaments and biological substances; Z80.9 Family history of malignant neoplasm, unspecified; G47.419 Narcolepsy without cataplexy; G47.36 Sleep related hypoventilation in conditions classified elsewhere; G47.33 Obstructive sleep apnea (adult) (pediatric)
CPT/HCPCS: 36415; 70450; 70551; 71010; 73030; 73070; 80048; 80053; 82306; 82607; 82962; 84443; 85025; 93005; 94799; 95816; J1815; J7042; 97110; 97116; 99285-25

== ENCOUNTER 2017-10-07 05:13 | Inpatient (IN) | payer MEDICARE, BC ==
[2017-10-07 05:50] LABS: ADD MAN DIFF? NO
[2017-10-07 05:56] LABS: BASO % 0 % (0-3); EOS # 0.4 x10^3/uL (0.0-0.7); EOS % 4 % (0-3); HEMATOCRIT 31.3 % (36.0-47.0); LYMPH # 0.6 x10^3/uL (1.0-4.8); LYMPH % 6 % (24-48); MEAN CORPUSCULAR HEMOGLOBIN 29 pg (25-35); MEAN CORPUSCULAR HGB CONC 32 g/dL (31-37); MEAN CORPUSCULAR VOLUME 92 fL (79-100); MONO % 10 % (0-9); NEUT # 8.2 x10^3uL (1.8-7.7); NEUT % 80 % (31-73); PLATELET COUNT 285 x10^3/uL (140-400); RED CELL DISTRIBUTION WIDTH 17.3 % (11.5-14.5); WHITE BLOOD COUNT 10.2 x10^3/uL (4.0-11.0)
[2017-10-07 06:13] LABS: ALBUMIN 3.6 g/dL (3.4-5.0); ALBUMIN/GLOBULIN RATIO 0.8 (1.0-1.7); ALK PHOS 110 U/L (46-116); ALT (SGPT) 22 U/L (14-59); ANION GAP 16 (6-14); AST (SGOT) 17 U/L (15-37); BLOOD UREA NITROGEN 90 mg/dL (7-20); BUN/CREATININE RATIO 10 (6-20); CALCIUM 8.7 mg/dL (8.5-10.1); CARBON DIOXIDE 27 mmol/L (21-32); CHLORIDE 101 mmol/L (98-107); CREATININE 9.2 mg/dL (0.6-1.0); GFR 5.2; GLUCOSE 84 mg/dL (70-99); SODIUM 144 mmol/L (136-145); TOTAL BILIRUBIN 0.4 mg/dL (0.2-1.0); TOTAL PROTEIN 8.3 g/dL (6.4-8.2)
[2017-10-07 06:15] LABS: TROPONINI 0.017 ng/mL (0.000-0.055)
[2017-10-07 06:18] LABS: BILIRUBIN,URINE NEGATIVE (NEG); CLARITY,URINE CLEAR; COLOR,URINE YELLOW; GLUCOSE,URINE NEGATIVE (NEG); NITRITE,URINE NEGATIVE (NEG); PH,URINE 7.5; POTASSIUM 7.2 mmol/L (3.5-5.1); PROTEIN,URINE 100 mg/dL (NEG-TRACE); UROBILINOGEN,URINE 0.2 mg/dL (0.2 mg/dL)
[2017-10-07 06:20] LABS: THYROID STIM HORMONE (TSH) 1.243 uIU/mL (0.358-3.74)
[2017-10-07 06:25] LABS: BARBITURATES NEG (NEG); BENZODIAZEPINES NEG (NEG); CANNABINOIDS NEG (NEG); COCAINE NEG (NEG); METHADONE NEG (NEG); OPIATES NEG (NEG); PHENCYCLIDINE NEG (NEG)
[2017-10-07 06:26] LABS: AMPHETAMINE/METHAMPHETAMINE NEG (NEG); ETHANOL, URINE NEG (NEG)
[2017-10-07] MEDS: SODIUM POLYSTYRENE SULFONATE 15 GM/60 ML ORAL.SUSP. PO ×2 (06:26→06:28)
[2017-10-07] MEDS: SODIUM BICARB ADULT 8.4% 50 MEQ/50 ML DISP.SYRIN. IV (06:26)
[2017-10-07] MEDS: CALCIUM GLUCONATE 1,000 MG/10 ML VIAL. IVP (06:27)
[2017-10-07] MEDS: DEXTROSE 50% 25 GM / 50ML DISP.SYRIN. IV ×4 (06:27→19:44)
[2017-10-07] MEDS: INSULIN REGULAR 100 UNIT/ML 10ML VIAL. IV (06:28)
[2017-10-07 06:31] LABS: BACTERIA,URINE 0 /HPF (0-FEW); RBC,URINE 0 /HPF (0-2); WBC,URINE RARE /HPF (0-4)
[2017-10-07] MEDS: hydrALAZINE 20 MG/ML VIAL. IVP (07:06)
[2017-10-07] MEDS ORDERED: ONDANSETRON PF 4 MG/2 ML VIAL. IV (07:45)
[2017-10-07] MEDS ORDERED: IV NORMAL SALINE 1000ML BAG 1,000 ML IV ×2 (08:22)
[2017-10-07 08:29] LABS: POC GLUCOSE 72 mg/dL (70-99)
[2017-10-07] MEDS ORDERED: DIALYSIS PATIENT. MC ×2 (08:30)
[2017-10-07] MEDS ORDERED: ALBUMIN HUMAN 25% 200 ML IV (08:30)
[2017-10-07] MEDS: FAMOTIDINE 20 MG TABLET. PO (10:00)
[2017-10-07] MEDS ORDERED: MAGNESIUM SULFATE 2GM 50 ML IV (10:00)
[2017-10-07] MEDS: ASPIRIN 325 MG TABLET PO (10:30)
[2017-10-07] MEDS: FOLIC/VIT B COMP W-C (RENAL) TABLET. PO (10:30)
[2017-10-07] MEDS: NALOXONE 0.4 MG/ML VIAL. IV (10:30)
[2017-10-07] MEDS: LISINOPRIL 20 MG TABLET PO (10:30)
[2017-10-07] MEDS: amLODIPine BESYLATE 5 MG TABLET PO (10:30)
[2017-10-07] MEDS: INSULIN ASPART 300 UNITS/3 ML INSULN.PEN SQ ×2 (12:00→17:00)
[2017-10-07] MEDS: SEVELAMER CARBONATE 800 MG TABLET. PO ×2 (12:00→17:00)
[2017-10-07] MEDS ORDERED: PNEUMOCOCCAL VAX SCREEN BY RX. MC (13:15)
[2017-10-07] MEDS ORDERED: INFLUENZA VAX SCREEN BY RX. MC (13:15)
[2017-10-07 13:16] LABS: HEP B SURFACE AG Negative (Negative)
[2017-10-07 13:57] LABS: POC GLUCOSE 22 mg/dL (70-99)
[2017-10-07] MEDS: HEPARIN PF for SUB-Q USE 5,000 UNIT/0.5 ML VIAL. SQ ×2 (14:00→21:32)
[2017-10-07] MEDS: FLU VACC QS2017-18 (36MOS+)/PF 0.5 ML SYRINGE. VAX IM (14:00)
[2017-10-07] MEDS: PNEUMOC CONJ VACC 23-VALENT 0.5 ML VIAL. VAX IM (14:00)
[2017-10-07] MEDS: IV DEXTROSE 5% - 0.9 % NACL 1,000 ML IV (14:16)
[2017-10-07 14:53] LABS: POC GLUCOSE 98 mg/dL (70-99)
[2017-10-07 17:28] LABS: POC GLUCOSE 58 mg/dL (70-99)
[2017-10-07] MEDS: LATANOPROST 0.005% OPHTH SOLUTION 2.5ML BOTTLE. OU (17:44)
[2017-10-07 17:57] LABS: POC GLUCOSE 124 mg/dL (70-99)
[2017-10-07 20:21] LABS: POC GLUCOSE 64 mg/dL (70-99)
[2017-10-07 20:25] LABS: POC GLUCOSE 100 mg/dL (70-99)
[2017-10-07] MEDS: MONTELUKAST SODIUM 10 MG TABLET. PO (20:40)
[2017-10-07] MEDS: ATORVASTATIN CALCIUM 20 MG TABLET PO (20:40)
[2017-10-07] MEDS: cycloSPORINE 0.05% OPTH 1 DROP DROPERETTE OU (21:28)
[2017-10-07] MEDS: DARBEPOETIN ALFA 60 MCG/0.3 ML DISP.SYRIN. SQ (21:28)
[2017-10-07 22:46] LABS: POC GLUCOSE 71 mg/dL (70-99)
[2017-10-07 23:30] LABS: POC GLUCOSE 75 mg/dL (70-99)
[2017-10-08 01:17] LABS: POC GLUCOSE 78 mg/dL (70-99)
[2017-10-08 05:01] LABS: ADD MAN DIFF? NO
[2017-10-08 05:17] LABS: BASO % 0 % (0-3); EOS # 0.3 x10^3/uL (0.0-0.7); EOS % 4 % (0-3); HEMATOCRIT 26.8 % (36.0-47.0); HEMOGLOBIN 8.6 g/dL (12.0-15.5); LYMPH % 13 % (24-48); MEAN CORPUSCULAR HEMOGLOBIN 29 pg (25-35); MEAN CORPUSCULAR HGB CONC 32 g/dL (31-37); MEAN CORPUSCULAR VOLUME 91 fL (79-100); MONO % 13 % (0-9); NEUT % 69 % (31-73); PLATELET COUNT 208 x10^3/uL (140-400); RED BLOOD COUNT 2.94 x10^6/uL (3.50-5.40); WHITE BLOOD COUNT 7.2 x10^3/uL (4.0-11.0)
[2017-10-08 05:33] LABS: ALBUMIN 2.5 g/dL (3.4-5.0); ALBUMIN/GLOBULIN RATIO 0.7 (1.0-1.7); ALK PHOS 82 U/L (46-116); ALT (SGPT) 16 U/L (14-59); ANION GAP 10 (6-14); AST (SGOT) 15 U/L (15-37); BLOOD UREA NITROGEN 33 mg/dL (7-20); BUN/CREATININE RATIO 6 (6-20); CALCIUM 8.9 mg/dL (8.5-10.1); CARBON DIOXIDE 30 mmol/L (21-32); CHLORIDE 104 mmol/L (98-107); CREATININE 5.2 mg/dL (0.6-1.0); GLUCOSE 76 mg/dL (70-99); MAGNESIUM 2.3 mg/dL (1.8-2.4); PHOSPHORUS 4.4 mg/dL (2.6-4.7); POTASSIUM 4.8 mmol/L (3.5-5.1); SODIUM 144 mmol/L (136-145); TOTAL BILIRUBIN 0.3 mg/dL (0.2-1.0); TOTAL PROTEIN 6.3 g/dL (6.4-8.2)
[2017-10-08] MEDS: IV DEXTROSE 5% - 0.9 % NACL 1,000 ML IV (05:37)
[2017-10-08] MEDS: HEPARIN PF for SUB-Q USE 5,000 UNIT/0.5 ML VIAL. SQ ×3 (05:39→21:03)
[2017-10-08 05:59] LABS: POC GLUCOSE 76 mg/dL (70-99)
[2017-10-08 07:27] LABS: POC GLUCOSE 83 mg/dL (70-99)
[2017-10-08] MEDS: SEVELAMER CARBONATE 800 MG TABLET. PO ×3 (08:00→17:00)
[2017-10-08] MEDS: INSULIN ASPART 300 UNITS/3 ML INSULN.PEN SQ ×3 (08:00→17:00)
[2017-10-08] MEDS: FOLIC/VIT B COMP W-C (RENAL) TABLET. PO (09:00)
[2017-10-08] MEDS: amLODIPine BESYLATE 5 MG TABLET PO (09:00)
[2017-10-08] MEDS: ASPIRIN 325 MG TABLET PO (09:00)
[2017-10-08] MEDS: LISINOPRIL 20 MG TABLET PO (09:00)
[2017-10-08] MEDS: FAMOTIDINE 20 MG TABLET. PO (09:00)
[2017-10-08 10:58] LABS: POC GLUCOSE 98 mg/dL (70-99)
[2017-10-08 11:54] LABS: POC GLUCOSE 82 mg/dL (70-99)
[2017-10-08] MEDS ORDERED: DIALYSIS PATIENT. MC ×2 (12:00)
[2017-10-08] MEDS ORDERED: IV NORMAL SALINE 1000ML BAG 1,000 ML IV ×2 (12:00)
[2017-10-08 16:26] LABS: POC GLUCOSE 107 mg/dL (70-99)
[2017-10-08] MEDS: cloNIDine HCL 0.1 MG TABLET PO (17:04)
[2017-10-08] MEDS: hydrALAZINE 20 MG/ML VIAL. IVP (17:05)
[2017-10-08] MEDS: LATANOPROST 0.005% OPHTH SOLUTION 2.5ML BOTTLE. OU (18:00)
[2017-10-08 18:03] LABS: POC GLUCOSE 75 mg/dL (70-99)
[2017-10-08] MEDS: MONTELUKAST SODIUM 10 MG TABLET. PO ×2 (20:52→21:00)
[2017-10-08] MEDS: ATORVASTATIN CALCIUM 20 MG TABLET PO ×2 (20:52→21:00)
[2017-10-08] MEDS: cycloSPORINE 0.05% OPTH 1 DROP DROPERETTE OU (20:52)
[2017-10-08] MEDS: IV DEXTROSE 5% 1,000 ML IV (21:07)
[2017-10-08 22:54] LABS: POC GLUCOSE 78 mg/dL (70-99)
[2017-10-08 22:54] LABS: POC GLUCOSE 92 mg/dL (70-99)
[2017-10-09 02:06] LABS: POC GLUCOSE 91 mg/dL (70-99)
[2017-10-09] MEDS: hydrALAZINE 20 MG/ML VIAL. IVP (03:38)
[2017-10-09] MEDS: HEPARIN PF for SUB-Q USE 5,000 UNIT/0.5 ML VIAL. SQ ×3 (05:47→21:14)
[2017-10-09 06:10] LABS: ANION GAP 11 (6-14); BLOOD UREA NITROGEN 19 mg/dL (7-20); CALCIUM 9.9 mg/dL (8.5-10.1); CARBON DIOXIDE 30 mmol/L (21-32); CHLORIDE 101 mmol/L (98-107); CREATININE 3.9 mg/dL (0.6-1.0); GLUCOSE 104 mg/dL (70-99); MAGNESIUM 2.2 mg/dL (1.8-2.4); PHOSPHORUS 4.1 mg/dL (2.6-4.7); SODIUM 142 mmol/L (136-145)
[2017-10-09] MEDS: IV DEXTROSE 5% - 0.9 % NACL 1,000 ML IV ×2 (06:59→22:15)
[2017-10-09 07:34] LABS: POC GLUCOSE 107 mg/dL (70-99)
[2017-10-09] MEDS: INSULIN ASPART 300 UNITS/3 ML INSULN.PEN SQ ×3 (08:00→16:42)
[2017-10-09] MEDS: SEVELAMER CARBONATE 800 MG TABLET. PO ×3 (08:00→16:42)
[2017-10-09] MEDS: ASPIRIN 325 MG TABLET PO (08:31)
[2017-10-09] MEDS: FAMOTIDINE 20 MG TABLET. PO (08:31)
[2017-10-09] MEDS: LISINOPRIL 20 MG TABLET PO (08:32)
[2017-10-09] MEDS: amLODIPine BESYLATE 5 MG TABLET PO (08:32)
[2017-10-09] MEDS: FOLIC/VIT B COMP W-C (RENAL) TABLET. PO (08:40)
[2017-10-09] MEDS ORDERED: IV NORMAL SALINE 1000ML BAG 1,000 ML IV ×2 (11:55)
[2017-10-09] MEDS ORDERED: diphenhydrAMINE 50 MG/ML VIAL IV (12:00)
[2017-10-09] MEDS ORDERED: DIALYSIS PATIENT. MC (12:00)
[2017-10-09] MEDS ORDERED: ACETAMINOPHEN 500 MG TABLET PO (12:00)
[2017-10-09 12:05] LABS: POC GLUCOSE 103 mg/dL (70-99)
[2017-10-09] MEDS: diphenhydrAMINE 50 MG/ML VIAL IV (16:40)
[2017-10-09 17:45] LABS: POC GLUCOSE 76 mg/dL (70-99)
[2017-10-09] MEDS: LATANOPROST 0.005% OPHTH SOLUTION 2.5ML BOTTLE. OU (18:00)
[2017-10-09] MEDS: MONTELUKAST SODIUM 10 MG TABLET. PO (20:06)
[2017-10-09] MEDS: ATORVASTATIN CALCIUM 20 MG TABLET PO (20:06)
[2017-10-09] MEDS: cycloSPORINE 0.05% OPTH 1 DROP DROPERETTE OU (20:06)
[2017-10-09] MEDS: HALOPERIDOL LACTATE 5 MG/ML VIAL. IM (21:12)
[2017-10-10 00:36] LABS: POC GLUCOSE 100 mg/dL (70-99)
[2017-10-10] MEDS: hydrALAZINE 20 MG/ML VIAL. IVP (01:06)
[2017-10-10 04:10] LABS: ALBUMIN 2.9 g/dL (3.4-5.0); ANION GAP 9 (6-14); CALCIUM 9.8 mg/dL (8.5-10.1); CARBON DIOXIDE 31 mmol/L (21-32); CHLORIDE 103 mmol/L (98-107); CREATININE 2.9 mg/dL (0.6-1.0); GFR 19.7; GLUCOSE 91 mg/dL (70-99); MAGNESIUM 2.1 mg/dL (1.8-2.4); PHOSPHORUS 3.3 mg/dL (2.6-4.7); POTASSIUM 4.1 mmol/L (3.5-5.1); SODIUM 143 mmol/L (136-145)
[2017-10-10 04:11] LABS: BLOOD UREA NITROGEN 10 mg/dL (7-20)
[2017-10-10] MEDS: HEPARIN PF for SUB-Q USE 5,000 UNIT/0.5 ML VIAL. SQ ×3 (05:00→21:03)
[2017-10-10] MEDS: INSULIN ASPART 300 UNITS/3 ML INSULN.PEN SQ ×3 (08:00→17:00)
[2017-10-10 08:11] LABS: POC GLUCOSE 77 mg/dL (70-99)
[2017-10-10] MEDS: FAMOTIDINE 20 MG TABLET. PO (09:27)
[2017-10-10] MEDS: ASPIRIN 325 MG TABLET PO (09:27)
[2017-10-10] MEDS: SEVELAMER CARBONATE 800 MG TABLET. PO ×3 (09:28→17:48)
[2017-10-10] MEDS: LISINOPRIL 20 MG TABLET PO ×2 (09:28→20:47)
[2017-10-10] MEDS: FOLIC/VIT B COMP W-C (RENAL) TABLET. PO (09:29)
[2017-10-10] MEDS: amLODIPine BESYLATE 5 MG TABLET PO ×2 (09:29→20:46)
[2017-10-10 10:41] LABS: AMMONIA < 10 mcmol/L (11-34)
[2017-10-10 10:48] LABS: BASE EXCESS ABG 7 mmol/L (-3-3); HCO3 ABG 32 mmol/L (21-28); PCO2 ABG 44 mmHg (35-46); PH ABG 7.47 (7.35-7.45); PO2 ABG 79 mmHg (65-108); SAT O2 ABG 95 % (92-99)
[2017-10-10 10:52] LABS: FIO2 ABG 21
[2017-10-10 13:10] LABS: POC GLUCOSE 121 mg/dL (70-99)
[2017-10-10] MEDS: oxyCODONE/APAP 5/325 1 TAB TABLET PO ×2 (13:21→23:12)
[2017-10-10 17:22] LABS: MRSA BY PCR Negative (Negative)
[2017-10-10 17:44] LABS: POC GLUCOSE 143 mg/dL (70-99)
[2017-10-10] MEDS: LATANOPROST 0.005% OPHTH SOLUTION 2.5ML BOTTLE. OU (18:00)
[2017-10-10] MEDS: IV DEXTROSE 5% - 0.9 % NACL 1,000 ML IV (18:15)
[2017-10-10] MEDS: MONTELUKAST SODIUM 10 MG TABLET. PO (20:46)
[2017-10-10] MEDS: ATORVASTATIN CALCIUM 20 MG TABLET PO (20:46)
[2017-10-10 21:00] LABS: POC GLUCOSE 152 mg/dL (70-99)
[2017-10-10] MEDS: cycloSPORINE 0.05% OPTH 1 DROP DROPERETTE OU (21:03)
[2017-10-11 05:58] LABS: ANION GAP 9 (6-14); BLOOD UREA NITROGEN 27 mg/dL (7-20); CALCIUM 9.9 mg/dL (8.5-10.1); CARBON DIOXIDE 31 mmol/L (21-32); CHLORIDE 105 mmol/L (98-107); CREATININE 5.2 mg/dL (0.6-1.0); GLUCOSE 112 mg/dL (70-99); PHOSPHORUS 4.2 mg/dL (2.6-4.7); POTASSIUM 4.3 mmol/L (3.5-5.1); SODIUM 145 mmol/L (136-145)
[2017-10-11 06:04] LABS: MAGNESIUM 2.4 mg/dL (1.8-2.4)
[2017-10-11] MEDS: HEPARIN PF for SUB-Q USE 5,000 UNIT/0.5 ML VIAL. SQ ×3 (06:43→22:18)
[2017-10-11] MEDS: INSULIN ASPART 300 UNITS/3 ML INSULN.PEN SQ ×3 (08:00→17:00)
[2017-10-11] MEDS: SEVELAMER CARBONATE 800 MG TABLET. PO ×4 (09:13→18:18)
[2017-10-11] MEDS: amLODIPine BESYLATE 5 MG TABLET PO ×2 (09:14→22:13)
[2017-10-11] MEDS: FAMOTIDINE 20 MG TABLET. PO (09:14)
[2017-10-11] MEDS: LISINOPRIL 20 MG TABLET PO ×2 (09:14→22:12)
[2017-10-11] MEDS: ASPIRIN 325 MG TABLET PO (09:15)
[2017-10-11] MEDS: FOLIC/VIT B COMP W-C (RENAL) TABLET. PO (09:26)
[2017-10-11] MEDS: ERGOCALCIFEROL (VITAMIN D2) 50,000 UNIT CAPSULE. PO (09:28)
[2017-10-11 10:33] LABS: POC GLUCOSE 74 mg/dL (70-99)
[2017-10-11 13:19] LABS: POC GLUCOSE 95 mg/dL (70-99)
[2017-10-11 13:19] LABS: POC GLUCOSE 227 mg/dL (70-99)
[2017-10-11] MEDS ORDERED: IV NORMAL SALINE 1000ML BAG 1,000 ML IV ×2 (13:25)
[2017-10-11] MEDS ORDERED: DIALYSIS PATIENT. MC (13:30)
[2017-10-11] MEDS: LATANOPROST 0.005% OPHTH SOLUTION 2.5ML BOTTLE. OU (18:13)
[2017-10-11 20:58] LABS: POC GLUCOSE 221 mg/dL (70-99)
[2017-10-11] MEDS: cycloSPORINE 0.05% OPTH 1 DROP DROPERETTE OU (21:00)
[2017-10-11] MEDS: MONTELUKAST SODIUM 10 MG TABLET. PO (22:12)
[2017-10-11] MEDS: ATORVASTATIN CALCIUM 20 MG TABLET PO (22:12)
[2017-10-11] MEDS: oxyCODONE/APAP 5/325 1 TAB TABLET PO (22:23)
[2017-10-12] MEDS: HEPARIN PF for SUB-Q USE 5,000 UNIT/0.5 ML VIAL. SQ (05:52)
[2017-10-12 07:55] LABS: POC GLUCOSE 103 mg/dL (70-99)
[2017-10-12] MEDS: INSULIN ASPART 300 UNITS/3 ML INSULN.PEN SQ ×2 (08:00→12:00)
[2017-10-12] MEDS: ASPIRIN 325 MG TABLET PO (08:17)
[2017-10-12] MEDS: FOLIC/VIT B COMP W-C (RENAL) TABLET. PO (08:17)
[2017-10-12] MEDS: FAMOTIDINE 20 MG TABLET. PO (08:17)
[2017-10-12] MEDS: SEVELAMER CARBONATE 800 MG TABLET. PO ×2 (08:17→12:33)
[2017-10-12] MEDS: amLODIPine BESYLATE 5 MG TABLET PO (08:17)
[2017-10-12] MEDS: LISINOPRIL 20 MG TABLET PO (08:18)
[2017-10-12 11:59] LABS: MAGNESIUM 2.1 mg/dL (1.8-2.4)
[2017-10-12 12:02] LABS: ANION GAP 9 (6-14); BLOOD UREA NITROGEN 24 mg/dL (7-20); CALCIUM 9.6 mg/dL (8.5-10.1); CARBON DIOXIDE 31 mmol/L (21-32); CHLORIDE 100 mmol/L (98-107); CREATININE 4.1 mg/dL (0.6-1.0); GFR 13.2; GLUCOSE 178 mg/dL (70-99); PHOSPHORUS 3.1 mg/dL (2.6-4.7); POTASSIUM 4.4 mmol/L (3.5-5.1); SODIUM 140 mmol/L (136-145)
[2017-10-12 12:34] LABS: POC GLUCOSE 74 mg/dL (70-99)
== END 2017-10-12 13:38 | disposition home or self-care (01) | DRG 682 ==
LOC: 5 NORTH 10-10 19:30 → 1 WEST ICU 10-09 23:22 → ER 05:13 → 5 NORTH 06:25
PROC: 5A1D70Z Performance of Urinary Filtration, Intermittent, Less than 6 Hours Per Day (ICD-10-PCS; principal; 2017-10-07)
PROC: 5A1D70Z Performance of Urinary Filtration, Intermittent, Less than 6 Hours Per Day (ICD-10-PCS; 2017-10-08)
PROC: 5A1D70Z Performance of Urinary Filtration, Intermittent, Less than 6 Hours Per Day (ICD-10-PCS; 2017-10-09)
PROC: 5A1D70Z Performance of Urinary Filtration, Intermittent, Less than 6 Hours Per Day (ICD-10-PCS; 2017-10-11)
DX: I12.0 Hypertensive chronic kidney disease with stage 5 chronic kidney disease or end stage renal disease (principal); G93.41 Metabolic encephalopathy; G93.49 Other encephalopathy; N18.6 End stage renal disease; E11.22 Type 2 diabetes mellitus with diabetic chronic kidney disease; E11.42 Type 2 diabetes mellitus with diabetic polyneuropathy; W06.XXXA Fall from bed, initial encounter; E87.5 Hyperkalemia; E11.319 Type 2 diabetes mellitus with unspecified diabetic retinopathy without macular edema; E11.39 Type 2 diabetes mellitus with other diabetic ophthalmic complication; E66.9 Obesity, unspecified; E78.5 Hyperlipidemia, unspecified; H54.8 Legal blindness, as defined in USA; I45.4 Nonspecific intraventricular block; J44.9 Chronic obstructive pulmonary disease, unspecified; M19.019 Primary osteoarthritis, unspecified shoulder; G89.29 Other chronic pain; M75.90 Shoulder lesion, unspecified, unspecified shoulder; S00.03XA Contusion of scalp, initial encounter; Z68.31 Body mass index [BMI] 31.0-31.9, adult; Z96.653 Presence of artificial knee joint, bilateral; F32.9 Major depressive disorder, single episode, unspecified; F41.9 Anxiety disorder, unspecified; Z79.4 Long term (current) use of insulin; Z82.3 Family history of stroke; Z82.49 Family history of ischemic heart disease and other diseases of the circulatory system; Z83.3 Family history of diabetes mellitus; Z86.73 Personal history of transient ischemic attack (TIA), and cerebral infarction without residual deficits; Z87.891 Personal history of nicotine dependence; Z88.5 Allergy status to narcotic agent; Z99.2 Dependence on renal dialysis; Y93.89 Activity, other specified; Y92.89 Other specified places as the place of occurrence of the external cause; Y99.8 Other external cause status; Z88.2 Allergy status to sulfonamides; Z88.8 Allergy status to other drugs, medicaments and biological substances; Z90.49 Acquired absence of other specified parts of digestive tract
CPT/HCPCS: 36415; 36600; 70450; 71045; 72125; 80053; 80069; 80307; 81001; 82140; 82805; 82962; 83735; 84100; 84443; 84484; 85025; 87340; 87641; 92610-GN; 93005; 96374; 96375; 97110-GP; 97116-GP; 97162-GP; 97166-GO; 99291; 99291-25; J0360; J0610; J0881; J1200; J1630; J1815; J2060; J7042; P9612

== ENCOUNTER 2017-11-25 18:14 | Emergency (ER) | payer MEDICARE ==
[2017-11-25 21:52] LABS: ADD MAN DIFF? NO
[2017-11-25 21:55] LABS: BASO % 0 % (0-3); EOS # 0.2 x10^3/uL (0.0-0.7); EOS % 2 % (0-3); HEMATOCRIT 34.3 % (36.0-47.0); LYMPH # 1.4 x10^3/uL (1.0-4.8); LYMPH % 14 % (24-48); MEAN CORPUSCULAR HEMOGLOBIN 29 pg (25-35); MEAN CORPUSCULAR HGB CONC 32 g/dL (31-37); MEAN CORPUSCULAR VOLUME 90 fL (79-100); MONO # 1.4 x10^3/uL (0.0-1.1); MONO % 14 % (0-9); NEUT # 6.9 x10^3uL (1.8-7.7); NEUT % 69 % (31-73); PLATELET COUNT 267 x10^3/uL (140-400); RED BLOOD COUNT 3.81 x10^6/uL (3.50-5.40); RED CELL DISTRIBUTION WIDTH 18.2 % (11.5-14.5)
[2017-11-25 22:00] LABS: ANION GAP 15 (6-14); BLOOD UREA NITROGEN 48 mg/dL (7-20); BUN/CREATININE RATIO 8 (6-20); CALCIUM 8.7 mg/dL (8.5-10.1); CARBON DIOXIDE 27 mmol/L (21-32); CHLORIDE 103 mmol/L (98-107); CREATININE 6.3 mg/dL (0.6-1.0); GLUCOSE 79 mg/dL (70-99); POTASSIUM 3.9 mmol/L (3.5-5.1); SODIUM 145 mmol/L (136-145)
[2017-11-25 22:07] LABS: ALBUMIN 2.6 g/dL (3.4-5.0); ALBUMIN/GLOBULIN RATIO 0.6 (1.0-1.7); ALK PHOS 109 U/L (46-116); ALT (SGPT) 21 U/L (14-59); AST (SGOT) 24 U/L (15-37); TOTAL BILIRUBIN 0.3 mg/dL (0.2-1.0); TOTAL PROTEIN 7.3 g/dL (6.4-8.2)
== END 2017-11-25 23:18 | disposition home or self-care (01) ==
LOC: ER 18:14
DX: R19.7 Diarrhea, unspecified (principal); E11.22 Type 2 diabetes mellitus with diabetic chronic kidney disease; I12.0 Hypertensive chronic kidney disease with stage 5 chronic kidney disease or end stage renal disease; N18.6 End stage renal disease; Z99.2 Dependence on renal dialysis; Z88.5 Allergy status to narcotic agent; Z88.1 Allergy status to other antibiotic agents; Z88.2 Allergy status to sulfonamides; Z88.8 Allergy status to other drugs, medicaments and biological substances
CPT/HCPCS: 36415; 80053; 85025; 99284

== ENCOUNTER 2017-12-11 04:44 | Inpatient (IN) | payer MEDICARE, OTHER ==
[2017-12-11 05:37] LABS: ADD MAN DIFF? NO
[2017-12-11 05:46] LABS: POC GLUCOSE 74 mg/dL (70-99)
[2017-12-11 05:48] LABS: TROPONIN BY ISTAT 0.07 ng/ml (<0.08)
[2017-12-11 05:49] LABS: BASO # 0.1 x10^3/uL (0.0-0.2); BASO % 1 % (0-3); EOS # 0.3 x10^3/uL (0.0-0.7); EOS % 4 % (0-3); HEMATOCRIT 36.6 % (36.0-47.0); HEMOGLOBIN 11.6 g/dL (12.0-15.5); LYMPH # 1.2 x10^3/uL (1.0-4.8); LYMPH % 19 % (24-48); MEAN CORPUSCULAR HEMOGLOBIN 29 pg (25-35); MEAN CORPUSCULAR HGB CONC 32 g/dL (31-37); MEAN CORPUSCULAR VOLUME 92 fL (79-100); MONO # 0.9 x10^3/uL (0.0-1.1); MONO % 14 % (0-9); NEUT % 62 % (31-73); PLATELET COUNT 254 x10^3/uL (140-400); RED CELL DISTRIBUTION WIDTH 19.2 % (11.5-14.5); WHITE BLOOD COUNT 6.4 x10^3/uL (4.0-11.0)
[2017-12-11] MEDS: SODIUM POLYSTYRENE SULFONATE 15 GM/60 ML ORAL.SUSP. PO (05:51)
[2017-12-11] MEDS: DEXTROSE 50% 25 GM / 50ML DISP.SYRIN. IV ×3 (05:51→08:25)
[2017-12-11] MEDS: CALCIUM GLUCONATE 1,000 MG/10 ML VIAL. IVP ×2 (05:52→07:21)
[2017-12-11] MEDS: SODIUM BICARB ADULT 8.4% 50 MEQ/50 ML DISP.SYRIN. IV (05:52)
[2017-12-11] MEDS: INSULIN REGULAR 100 UNIT/ML 3ML VIAL. IV (05:52)
[2017-12-11 05:58] LABS: ALBUMIN 3.3 g/dL (3.4-5.0); ALBUMIN/GLOBULIN RATIO 0.8 (1.0-1.7); ALK PHOS 114 U/L (46-116); ALT (SGPT) 21 U/L (14-59); ANION GAP 17 (6-14); AST (SGOT) 24 U/L (15-37); BLOOD UREA NITROGEN 101 mg/dL (7-20); BUN/CREATININE RATIO 9 (6-20); CALCIUM 7.8 mg/dL (8.5-10.1); CARBON DIOXIDE 24 mmol/L (21-32); CHLORIDE 103 mmol/L (98-107); CREATININE 11.3 mg/dL (0.6-1.0); GFR 4.1; GLUCOSE 65 mg/dL (70-99); MAGNESIUM 2.9 mg/dL (1.8-2.4); SODIUM 144 mmol/L (136-145); TOTAL BILIRUBIN 0.4 mg/dL (0.2-1.0); TOTAL PROTEIN 7.4 g/dL (6.4-8.2)
[2017-12-11 06:04] LABS: NT-PRO BNP 11260 pg/mL (0-124)
[2017-12-11 06:14] LABS: POTASSIUM 8.5 mmol/L (3.5-5.1)
[2017-12-11] MEDS ORDERED: ONDANSETRON PF 4 MG/2 ML VIAL. IV (06:45)
[2017-12-11] MEDS ORDERED: ACETAMINOPHEN 325 MG TABLET. PO (06:45)
[2017-12-11] MEDS: ALBUTEROL SULFATE 2.5 MG/3 ML NEBU. CONT NEB (06:58)
[2017-12-11] MEDS ORDERED: IV NORMAL SALINE 1000ML BAG 1,000 ML IV ×2 (07:25)
[2017-12-11 07:28] LABS: POC GLUCOSE 53 mg/dL (70-99)
[2017-12-11] MEDS ORDERED: DIALYSIS PATIENT. MC ×2 (07:30)
[2017-12-11] MEDS: ALBUMIN HUMAN 25% 100 ML IV (08:30)
[2017-12-11 09:00] LABS: POC GLUCOSE 49 mg/dL (70-99)
[2017-12-11 09:01] LABS: POC GLUCOSE 85 mg/dL (70-99)
[2017-12-11 10:09] LABS: ANION GAP 13 (6-14); BLOOD UREA NITROGEN 54 mg/dL (7-20); CARBON DIOXIDE 28 mmol/L (21-32); CHLORIDE 101 mmol/L (98-107); CREATININE 6.4 mg/dL (0.6-1.0); GFR 7.9; GLUCOSE 73 mg/dL (70-99); POTASSIUM 4.2 mmol/L (3.5-5.1); SODIUM 142 mmol/L (136-145)
[2017-12-11] MEDS: ASPIRIN 325 MG TABLET PO (10:29)
[2017-12-11] MEDS: FAMOTIDINE 20 MG TABLET. PO (10:30)
[2017-12-11] MEDS: INSULIN LISPRO 300 UNITS/3 ML INSULN.PEN. SQ ×2 (10:30→17:00)
[2017-12-11] MEDS: amLODIPine BESYLATE 5 MG TABLET PO (10:30)
[2017-12-11] MEDS: LISINOPRIL 20 MG TABLET PO (10:30)
[2017-12-11] MEDS: FOLIC/VIT B COMP W-C (RENAL) TABLET. PO (11:00)
[2017-12-11] MEDS: SEVELAMER CARBONATE 800 MG TABLET. PO ×2 (11:47→17:00)
[2017-12-11] MEDS ORDERED: DEXTROSE ORAL GEL 15 GM TUBE. ×2 (13:11→13:44)
[2017-12-11] MEDS ORDERED: GLUCAGON,HUMAN RECOMBINANT 1 MG/ML VIAL. (13:45)
[2017-12-11] MEDS: GLUCAGON,HUMAN RECOMBINANT 1 MG/ML VIAL. IM (13:58)
[2017-12-11] MEDS ORDERED: DEXTROSE ORAL GEL 15 GM TUBE. PO (14:00)
[2017-12-11 17:44] LABS: POC GLUCOSE 120 mg/dL (70-99)
[2017-12-11 17:44] LABS: POC GLUCOSE 53 mg/dL (70-99)
[2017-12-11 17:44] LABS: POC GLUCOSE 49 mg/dL (70-99)
[2017-12-11] MEDS: LATANOPROST 0.005% OPHTH SOLUTION 2.5ML BOTTLE. OU (18:00)
[2017-12-11] MEDS: MONTELUKAST SODIUM 10 MG TABLET. PO (21:24)
[2017-12-11] MEDS: GABAPENTIN 300 MG CAPSULE. PO (21:24)
[2017-12-11] MEDS: cycloSPORINE 0.05% OPTH 1 DROP DROPERETTE OU (21:24)
[2017-12-11] MEDS: ATORVASTATIN CALCIUM 20 MG TABLET PO (21:24)
[2017-12-11] MEDS: DARBEPOETIN ALFA 60 MCG/0.3 ML DISP.SYRIN. SQ (21:25)
[2017-12-11] MEDS: HEPARIN PF for SUB-Q USE 5,000 UNIT/0.5 ML VIAL. SQ (21:28)
[2017-12-11 22:27] LABS: MRSA BY PCR Negative (Negative)
[2017-12-12] MEDS: DEXTROSE 50% 25 GM / 50ML DISP.SYRIN. IV ×2 (00:19→03:47)
[2017-12-12 00:24] LABS: POC GLUCOSE 34 mg/dL (70-99)
[2017-12-12 00:37] LABS: POC GLUCOSE 99 mg/dL (70-99)
[2017-12-12] MEDS ORDERED: DEXTROSE 50% 25 GM / 50ML DISP.SYRIN. IV (05:50)
[2017-12-12] MEDS: INSULIN LISPRO 300 UNITS/3 ML INSULN.PEN. SQ ×3 (08:00→17:00)
[2017-12-12 08:12] LABS: POC GLUCOSE 97 mg/dL (70-99)
[2017-12-12 08:14] LABS: POC GLUCOSE 46 mg/dL (70-99)
[2017-12-12 08:14] LABS: POC GLUCOSE 91 mg/dL (70-99)
[2017-12-12 08:23] LABS: POC GLUCOSE 67 mg/dL (70-99)
[2017-12-12] MEDS: HEPARIN PF for SUB-Q USE 5,000 UNIT/0.5 ML VIAL. SQ ×2 (08:40→22:02)
[2017-12-12] MEDS: ASPIRIN 325 MG TABLET PO (08:45)
[2017-12-12] MEDS: FOLIC/VIT B COMP W-C (RENAL) TABLET. PO (08:45)
[2017-12-12] MEDS: SEVELAMER CARBONATE 800 MG TABLET. PO ×3 (08:45→17:00)
[2017-12-12] MEDS: FAMOTIDINE 20 MG TABLET. PO (08:47)
[2017-12-12] MEDS: LISINOPRIL 20 MG TABLET PO (08:48)
[2017-12-12] MEDS: amLODIPine BESYLATE 5 MG TABLET PO (08:49)
[2017-12-12 09:03] LABS: ANION GAP 8 (6-14); BASO % 1 % (0-3); BLOOD UREA NITROGEN 37 mg/dL (7-20); CARBON DIOXIDE 31 mmol/L (21-32); CHLORIDE 100 mmol/L (98-107); CREATININE 6.3 mg/dL (0.6-1.0); EOS # 0.3 x10^3/uL (0.0-0.7); EOS % 6 % (0-3); GLUCOSE 49 mg/dL (70-99); HEMATOCRIT 33.8 % (36.0-47.0); HEMOGLOBIN 10.9 g/dL (12.0-15.5); LYMPH # 0.9 x10^3/uL (1.0-4.8); LYMPH % 18 % (24-48); MEAN CORPUSCULAR HEMOGLOBIN 29 pg (25-35); MEAN CORPUSCULAR HGB CONC 32 g/dL (31-37); MEAN CORPUSCULAR VOLUME 90 fL (79-100); MONO # 0.9 x10^3/uL (0.0-1.1); MONO % 19 % (0-9); NEUT # 2.8 x10^3uL (1.8-7.7); NEUT % 57 % (31-73); PLATELET COUNT 216 x10^3/uL (140-400); POTASSIUM 4.3 mmol/L (3.5-5.1); RED BLOOD COUNT 3.74 x10^6/uL (3.50-5.40); SODIUM 139 mmol/L (136-145); WHITE BLOOD COUNT 4.9 x10^3/uL (4.0-11.0)
[2017-12-12 09:20] LABS: ADD MAN DIFF? YES
[2017-12-12 11:02] LABS: % BANDS 1 % (0-9); % EOS 3 % (0-5); % LYMPHS 19 % (24-48); % MONOS 6 % (0-10); % SEGS 71 % (35-66); ANISOCYTOSIS PRESENT; PLT ESTIMATE ADEQUATE (ADEQUATE)
[2017-12-12 12:16] LABS: POC GLUCOSE 76 mg/dL (70-99)
[2017-12-12 13:05] LABS: POC GLUCOSE 66 mg/dL (70-99)
[2017-12-12 13:12] LABS: POC GLUCOSE 101 mg/dL (70-99)
[2017-12-12] MEDS: IV DEXTROSE 5% - 0.9 % NACL 1,000 ML IV (13:21)
[2017-12-12 16:35] LABS: POC GLUCOSE 88 mg/dL (70-99)
[2017-12-12] MEDS: oxyCODONE/APAP 5/325 1 TAB TABLET PO (16:37)
[2017-12-12] MEDS: ALPRAZolam 0.25 MG TABLET PO (17:30)
[2017-12-12] MEDS: LATANOPROST 0.005% OPHTH SOLUTION 2.5ML BOTTLE. OU (18:00)
[2017-12-12 20:22] LABS: POC GLUCOSE 95 mg/dL (70-99)
[2017-12-12] MEDS: MONTELUKAST SODIUM 10 MG TABLET. PO (21:00)
[2017-12-12] MEDS: cycloSPORINE 0.05% OPTH 1 DROP DROPERETTE OU (21:00)
[2017-12-12] MEDS: ATORVASTATIN CALCIUM 20 MG TABLET PO (21:00)
[2017-12-12] MEDS: GABAPENTIN 300 MG CAPSULE. PO (21:00)
[2017-12-13 02:22] LABS: POC GLUCOSE 77 mg/dL (70-99)
[2017-12-13 03:50] LABS: POC GLUCOSE 63 mg/dL (70-99)
[2017-12-13 05:28] LABS: POC GLUCOSE 75 mg/dL (70-99)
[2017-12-13] MEDS: IV DEXTROSE 5% - 0.9 % NACL 1,000 ML IV ×2 (05:53→20:46)
[2017-12-13 07:16] LABS: CHOLESTEROL 105 mg/dL (0-200); HDLC 40 mg/dL (40-60); LDLC 52 mg/dL (0-100); NON-HDL CHOLESTEROL 65 mg/dL (0-129); TRIGLYCERIDES 65 mg/dL (0-150); VLDLC 13 mg/dL (0-40)
[2017-12-13 07:19] LABS: CHOLESTEROL/HDL RATIO 2.6
[2017-12-13] MEDS: ASPIRIN 325 MG TABLET PO (08:00)
[2017-12-13] MEDS: SEVELAMER CARBONATE 800 MG TABLET. PO ×3 (08:00→17:00)
[2017-12-13] MEDS: INSULIN LISPRO 300 UNITS/3 ML INSULN.PEN. SQ ×3 (08:00→17:00)
[2017-12-13 08:16] LABS: POC GLUCOSE 58 mg/dL (70-99)
[2017-12-13] MEDS: LISINOPRIL 20 MG TABLET PO (08:25)
[2017-12-13] MEDS: amLODIPine BESYLATE 5 MG TABLET PO (08:25)
[2017-12-13] MEDS: ERGOCALCIFEROL (VITAMIN D2) 50,000 UNIT CAPSULE. PO (09:00)
[2017-12-13] MEDS: HEPARIN PF for SUB-Q USE 5,000 UNIT/0.5 ML VIAL. SQ ×2 (09:00→21:28)
[2017-12-13] MEDS: FOLIC/VIT B COMP W-C (RENAL) TABLET. PO (09:00)
[2017-12-13] MEDS ORDERED: IV NORMAL SALINE 1000ML BAG 1,000 ML IV ×2 (11:11)
[2017-12-13] MEDS ORDERED: diphenhydrAMINE 50 MG/ML VIAL IV ×2 (11:15)
[2017-12-13] MEDS ORDERED: DIALYSIS PATIENT. MC (11:15)
[2017-12-13] MEDS: oxyCODONE/APAP 5/325 1 TAB TABLET PO (12:04)
[2017-12-13] MEDS ORDERED: DEXTROSE ORAL GEL 15 GM TUBE. PO (13:15)
[2017-12-13 17:15] LABS: HEMOGLOBIN A1C 4.7 % (4.8-5.6)
[2017-12-13] MEDS: LATANOPROST 0.005% OPHTH SOLUTION 2.5ML BOTTLE. OU (17:18)
[2017-12-13 17:53] LABS: POC GLUCOSE 109 mg/dL (70-99)
[2017-12-13 17:54] LABS: POC GLUCOSE 133 mg/dL (70-99)
[2017-12-13 17:54] LABS: POC GLUCOSE 110 mg/dL (70-99)
[2017-12-13] MEDS: cycloSPORINE 0.05% OPTH 1 DROP DROPERETTE OU (20:39)
[2017-12-13] MEDS: MONTELUKAST SODIUM 10 MG TABLET. PO (20:46)
[2017-12-13] MEDS: ATORVASTATIN CALCIUM 20 MG TABLET PO (20:46)
[2017-12-13 21:12] LABS: POC GLUCOSE 99 mg/dL (70-99)
[2017-12-14] MEDS: ASPIRIN 325 MG TABLET PO (07:43)
[2017-12-14] MEDS: FOLIC/VIT B COMP W-C (RENAL) TABLET. PO (07:43)
[2017-12-14] MEDS: amLODIPine BESYLATE 5 MG TABLET PO (07:44)
[2017-12-14] MEDS: SEVELAMER CARBONATE 800 MG TABLET. PO ×3 (07:44→18:27)
[2017-12-14] MEDS: FAMOTIDINE 20 MG TABLET. PO (07:44)
[2017-12-14] MEDS: LISINOPRIL 20 MG TABLET PO (07:45)
[2017-12-14] MEDS: HEPARIN PF for SUB-Q USE 5,000 UNIT/0.5 ML VIAL. SQ ×2 (07:56→20:57)
[2017-12-14] MEDS: INSULIN LISPRO 300 UNITS/3 ML INSULN.PEN. SQ ×3 (08:00→17:00)
[2017-12-14 16:19] LABS: POC GLUCOSE 88 mg/dL (70-99)
[2017-12-14 16:19] LABS: POC GLUCOSE 109 mg/dL (70-99)
[2017-12-14 16:19] LABS: POC GLUCOSE 58 mg/dL (70-99)
[2017-12-14 16:23] LABS: POC GLUCOSE 136 mg/dL (70-99)
[2017-12-14] MEDS: LATANOPROST 0.005% OPHTH SOLUTION 2.5ML BOTTLE. OU (18:27)
[2017-12-14] MEDS: cycloSPORINE 0.05% OPTH 1 DROP DROPERETTE OU (20:21)
[2017-12-14] MEDS: MONTELUKAST SODIUM 10 MG TABLET. PO (20:21)
[2017-12-14] MEDS: ATORVASTATIN CALCIUM 20 MG TABLET PO (20:21)
[2017-12-14] MEDS: IV DEXTROSE 5% - 0.9 % NACL 1,000 ML IV (20:51)
[2017-12-14 21:01] LABS: POC GLUCOSE 185 mg/dL (70-99)
[2017-12-15 07:51] LABS: POC GLUCOSE 100 mg/dL (70-99)
[2017-12-15] MEDS: INSULIN LISPRO 300 UNITS/3 ML INSULN.PEN. SQ ×3 (08:00→17:12)
[2017-12-15] MEDS: FOLIC/VIT B COMP W-C (RENAL) TABLET. PO (09:34)
[2017-12-15] MEDS: SEVELAMER CARBONATE 800 MG TABLET. PO ×3 (09:34→17:10)
[2017-12-15] MEDS: LISINOPRIL 20 MG TABLET PO (09:34)
[2017-12-15] MEDS: ASPIRIN 325 MG TABLET PO (09:35)
[2017-12-15] MEDS: HEPARIN PF for SUB-Q USE 5,000 UNIT/0.5 ML VIAL. SQ ×2 (09:35→20:49)
[2017-12-15] MEDS: amLODIPine BESYLATE 5 MG TABLET PO (09:35)
[2017-12-15 11:59] LABS: POC GLUCOSE 148 mg/dL (70-99)
[2017-12-15] MEDS: QUEtiapine 25 MG TABLET. PO ×2 (12:20→17:17)
[2017-12-15] MEDS ORDERED: MAGNESIUM SULFATE 2GM 50 ML IV (13:15)
[2017-12-15] MEDS: LATANOPROST 0.005% OPHTH SOLUTION 2.5ML BOTTLE. OU (17:10)
[2017-12-15] MEDS ORDERED: BISACODYL 10 MG SUPP.RECT. PR (17:15)
[2017-12-15 17:20] LABS: POC GLUCOSE 160 mg/dL (70-99)
[2017-12-15 20:07] LABS: POC GLUCOSE 129 mg/dL (70-99)
[2017-12-15] MEDS: MONTELUKAST SODIUM 10 MG TABLET. PO (20:44)
[2017-12-15] MEDS: ATORVASTATIN CALCIUM 20 MG TABLET PO (20:45)
[2017-12-15] MEDS: cycloSPORINE 0.05% OPTH 1 DROP DROPERETTE OU (20:46)
[2017-12-16 06:23] LABS: ALBUMIN 2.6 g/dL (3.4-5.0); ANION GAP 10 (6-14); BLOOD UREA NITROGEN 50 mg/dL (7-20); CALCIUM 9.3 mg/dL (8.5-10.1); CARBON DIOXIDE 27 mmol/L (21-32); CHLORIDE 103 mmol/L (98-107); CREATININE 7.9 mg/dL (0.6-1.0); GFR 6.2; GLUCOSE 76 mg/dL (70-99); MAGNESIUM 2.3 mg/dL (1.8-2.4); PHOSPHORUS 6.3 mg/dL (2.6-4.7); POTASSIUM 5.1 mmol/L (3.5-5.1); SODIUM 140 mmol/L (136-145)
[2017-12-16 07:06] LABS: POC GLUCOSE 82 mg/dL (70-99)
[2017-12-16] MEDS: INSULIN LISPRO 300 UNITS/3 ML INSULN.PEN. SQ ×3 (07:48→17:00)
[2017-12-16] MEDS: oxyCODONE/APAP 5/325 1 TAB TABLET PO ×2 (08:44→20:11)
[2017-12-16] MEDS ORDERED: IV NORMAL SALINE 1000ML BAG 1,000 ML IV ×2 (09:23)
[2017-12-16] MEDS ORDERED: DIALYSIS PATIENT. MC ×2 (09:30)
[2017-12-16] MEDS: SEVELAMER CARBONATE 800 MG TABLET. PO ×3 (12:00→18:04)
[2017-12-16] MEDS: amLODIPine BESYLATE 5 MG TABLET PO (14:30)
[2017-12-16] MEDS: ASPIRIN 325 MG TABLET PO (14:30)
[2017-12-16] MEDS: FOLIC/VIT B COMP W-C (RENAL) TABLET. PO (14:30)
[2017-12-16] MEDS: QUEtiapine 25 MG TABLET. PO ×2 (14:31→21:24)
[2017-12-16] MEDS: FAMOTIDINE 20 MG TABLET. PO (14:31)
[2017-12-16] MEDS: LISINOPRIL 20 MG TABLET PO (14:31)
[2017-12-16] MEDS: HEPARIN PF for SUB-Q USE 5,000 UNIT/0.5 ML VIAL. SQ ×2 (14:41→21:36)
[2017-12-16 17:16] LABS: POC GLUCOSE 184 mg/dL (70-99)
[2017-12-16] MEDS: LATANOPROST 0.005% OPHTH SOLUTION 2.5ML BOTTLE. OU (18:04)
[2017-12-16 20:48] LABS: POC GLUCOSE 111 mg/dL (70-99)
[2017-12-16] MEDS: cycloSPORINE 0.05% OPTH 1 DROP DROPERETTE OU (21:22)
[2017-12-16] MEDS: ATORVASTATIN CALCIUM 20 MG TABLET PO (21:23)
[2017-12-16] MEDS: MONTELUKAST SODIUM 10 MG TABLET. PO (21:23)
[2017-12-17 04:38] LABS: ALBUMIN 2.7 g/dL (3.4-5.0); ANION GAP 7 (6-14); CALCIUM 8.9 mg/dL (8.5-10.1); CARBON DIOXIDE 31 mmol/L (21-32); CHLORIDE 102 mmol/L (98-107); CREATININE 4.9 mg/dL (0.6-1.0); GFR 10.8; GLUCOSE 88 mg/dL (70-99); MAGNESIUM 2.1 mg/dL (1.8-2.4); PHOSPHORUS 4.7 mg/dL (2.6-4.7); POTASSIUM 4.4 mmol/L (3.5-5.1); SODIUM 140 mmol/L (136-145)
[2017-12-17 04:39] LABS: BLOOD UREA NITROGEN 27 mg/dL (7-20)
[2017-12-17] MEDS: INSULIN LISPRO 300 UNITS/3 ML INSULN.PEN. SQ (08:00)
[2017-12-17 08:16] LABS: POC GLUCOSE 77 mg/dL (70-99)
[2017-12-17 08:16] LABS: POC GLUCOSE 94 mg/dL (70-99)
[2017-12-17] MEDS: SEVELAMER CARBONATE 800 MG TABLET. PO (09:13)
[2017-12-17] MEDS: ASPIRIN 325 MG TABLET PO (09:13)
[2017-12-17] MEDS: FOLIC/VIT B COMP W-C (RENAL) TABLET. PO (09:13)
[2017-12-17] MEDS: LISINOPRIL 20 MG TABLET PO (09:14)
[2017-12-17] MEDS: amLODIPine BESYLATE 5 MG TABLET PO (09:14)
[2017-12-17] MEDS: QUEtiapine 25 MG TABLET. PO (09:14)
[2017-12-17] MEDS: HEPARIN PF for SUB-Q USE 5,000 UNIT/0.5 ML VIAL. SQ (09:22)
[2017-12-18] MEDS ORDERED: DARBEPOETIN ALFA 100 MCG/0.5 ML DISP.SYRIN. SQ (09:00)
== END 2017-12-17 11:27 | disposition home or self-care (01) | DRG 70 ==
LOC: ER 04:44 → 5 SOUTH 12-12 12:22 → 1 WEST ICU 06:24
PROC: 02H633Z Insertion of Infusion Device into Right Atrium, Percutaneous Approach (ICD-10-PCS; principal; 2017-12-11)
PROC: 02HV33Z Insertion of Infusion Device into Superior Vena Cava, Percutaneous Approach (ICD-10-PCS; 2017-12-11)
PROC: B548ZZA Ultrasonography of Superior Vena Cava, Guidance (ICD-10-PCS; 2017-12-11)
PROC: 5A1D70Z Performance of Urinary Filtration, Intermittent, Less than 6 Hours Per Day (ICD-10-PCS; 2017-12-11)
PROC: 5A1D70Z Performance of Urinary Filtration, Intermittent, Less than 6 Hours Per Day (ICD-10-PCS; 2017-12-13)
PROC: 5A1D70Z Performance of Urinary Filtration, Intermittent, Less than 6 Hours Per Day (ICD-10-PCS; 2017-12-16)
DX: G93.41 Metabolic encephalopathy (principal); N18.6 End stage renal disease; I13.2 Hypertensive heart and chronic kidney disease with heart failure and with stage 5 chronic kidney disease, or end stage renal disease; I95.9 Hypotension, unspecified; E11.22 Type 2 diabetes mellitus with diabetic chronic kidney disease; E87.5 Hyperkalemia; E11.42 Type 2 diabetes mellitus with diabetic polyneuropathy; E11.51 Type 2 diabetes mellitus with diabetic peripheral angiopathy without gangrene; E11.649 Type 2 diabetes mellitus with hypoglycemia without coma; E11.319 Type 2 diabetes mellitus with unspecified diabetic retinopathy without macular edema; I50.30 Unspecified diastolic (congestive) heart failure; D63.8 Anemia in other chronic diseases classified elsewhere; E78.5 Hyperlipidemia, unspecified; G89.4 Chronic pain syndrome; H05.20 Unspecified exophthalmos; H40.9 Unspecified glaucoma; H54.8 Legal blindness, as defined in USA; J44.9 Chronic obstructive pulmonary disease, unspecified; M19.90 Unspecified osteoarthritis, unspecified site; Z96.659 Presence of unspecified artificial knee joint; F32.9 Major depressive disorder, single episode, unspecified; F41.9 Anxiety disorder, unspecified; E21.3 Hyperparathyroidism, unspecified; M75.90 Shoulder lesion, unspecified, unspecified shoulder; Z79.4 Long term (current) use of insulin; Z82.49 Family history of ischemic heart disease and other diseases of the circulatory system; Z83.3 Family history of diabetes mellitus; Z86.73 Personal history of transient ischemic attack (TIA), and cerebral infarction without residual deficits; Z91.15 Patient's noncompliance with renal dialysis; Z91.19 Patient's noncompliance with other medical treatment and regimen; Z88.1 Allergy status to other antibiotic agents; Z88.5 Allergy status to narcotic agent; Z99.2 Dependence on renal dialysis; Z88.2 Allergy status to sulfonamides; Z88.8 Allergy status to other drugs, medicaments and biological substances
CPT/HCPCS: 36415; 36556; 70450; 71045; 76937; 80048; 80053; 80061; 80069; 82533; 82962; 83036; 83735; 83880; 84443; 84484; 85007; 85018; 85025; 87641; 93005; 94640; 96374; 96375; 96376; 97162-GP; 97165-GO; 99285; 99285-25; C1892; J0610; J0881; J1610; J1815; J2060; J7042; J7613; P9046

== ENCOUNTER 2018-02-15 08:42 | Inpatient (IN) | payer MEDICARE, OTHER ==
[2018-02-15] MEDS: HYDROcodone/APAP 10/325 1 TAB TABLET PO (09:12)
[2018-02-15] MEDS: ONDANSETRON ODT 4 MG TAB.RAPDIS. PO (09:12)
[2018-02-15 10:34] LABS: ADD MAN DIFF? NO
[2018-02-15 10:36] LABS: BASO # 0.1 x10^3/uL (0.0-0.2); BASO % 1 % (0-3); EOS # 0.2 x10^3/uL (0.0-0.7); EOS % 3 % (0-3); HEMATOCRIT 30.5 % (36.0-47.0); LYMPH # 1.1 x10^3/uL (1.0-4.8); LYMPH % 13 % (24-48); MEAN CORPUSCULAR HEMOGLOBIN 29 pg (25-35); MEAN CORPUSCULAR HGB CONC 33 g/dL (31-37); MEAN CORPUSCULAR VOLUME 89 fL (79-100); MONO # 1.5 x10^3/uL (0.0-1.1); MONO % 17 % (0-9); NEUT # 5.7 x10^3uL (1.8-7.7); NEUT % 67 % (31-73); PLATELET COUNT 242 x10^3/uL (140-400); RED BLOOD COUNT 3.44 x10^6/uL (3.50-5.40); WHITE BLOOD COUNT 8.5 x10^3/uL (4.0-11.0)
[2018-02-15 10:45] LABS: INR 1.1 (0.8-1.1); PROTHROMBIN TIME PATIENT 13.9 SEC (11.7-14.0)
[2018-02-15 10:46] LABS: ANION GAP 13 (6-14); BLOOD UREA NITROGEN 77 mg/dL (7-20); BUN/CREATININE RATIO 8 (6-20); CALCIUM 8.3 mg/dL (8.5-10.1); CARBON DIOXIDE 29 mmol/L (21-32); CHLORIDE 101 mmol/L (98-107); CREATININE 9.8 mg/dL (0.6-1.0); GFR 4.8; GLUCOSE 103 mg/dL (70-99); POTASSIUM 5.3 mmol/L (3.5-5.1); SODIUM 143 mmol/L (136-145)
[2018-02-15 10:48] LABS: ETHANOL < 10 mg/dL (0-10)
[2018-02-15] MEDS: MIDAZOLAM HCL/PF 5 MG/5 ML VIAL. IM (10:48)
[2018-02-15 10:52] LABS: ALBUMIN 2.6 g/dL (3.4-5.0); ALBUMIN/GLOBULIN RATIO 0.5 (1.0-1.7); ALK PHOS 106 U/L (46-116); ALT (SGPT) 20 U/L (14-59); AST (SGOT) 29 U/L (15-37); TOTAL BILIRUBIN 0.4 mg/dL (0.2-1.0); TOTAL PROTEIN 7.4 g/dL (6.4-8.2)
[2018-02-15] MEDS: SODIUM POLYSTYRENE SULFONATE 15 GM/60 ML ORAL.SUSP. PO (12:30)
[2018-02-15] MEDS ORDERED: HEPARIN for IV BOLUS 10,000 UNIT/10 ML VIAL. (13:01)
[2018-02-15] MEDS: HEPARIN for IV BOLUS 10,000 UNIT/10 ML VIAL. INT CAT ×2 (13:30→13:44)
[2018-02-15] MEDS: LIDOCAINE WITH 8.4% SOD BICARB 3 ML DISP.SYRIN. INJ ×2 (13:30→13:42)
[2018-02-15] MEDS ORDERED: DIALYSIS PATIENT. MC ×2 (16:00)
[2018-02-15] MEDS ORDERED: IV NORMAL SALINE 1000ML BAG 1,000 ML IV ×2 (16:00)
[2018-02-16] MEDS ORDERED: ACETAMINOPHEN 325 MG TABLET. PO (09:15)
[2018-02-16] MEDS: SEVELAMER CARBONATE 800 MG TABLET. PO ×3 (09:30→18:03)
[2018-02-16] MEDS: amLODIPine BESYLATE 5 MG TABLET PO (09:30)
[2018-02-16] MEDS: FAMOTIDINE 20 MG TABLET. PO (12:16)
[2018-02-16] MEDS: ASPIRIN 325 MG TABLET PO (12:16)
[2018-02-16] MEDS: LISINOPRIL 20 MG TABLET PO (12:16)
[2018-02-16 12:27] LABS: POC GLUCOSE 100 mg/dL (70-99)
[2018-02-16 16:39] LABS: POC GLUCOSE 163 mg/dL (70-99)
[2018-02-16] MEDS: LATANOPROST 0.005% OPHTH SOLUTION 2.5ML BOTTLE. OU (20:46)
[2018-02-16] MEDS: MONTELUKAST SODIUM 10 MG TABLET. PO (20:46)
[2018-02-16] MEDS: cycloSPORINE 0.05% OPTH 1 DROP DROPERETTE OU (20:46)
[2018-02-16] MEDS: ATORVASTATIN CALCIUM 20 MG TABLET PO (20:46)
[2018-02-16] MEDS: oxyCODONE/APAP 5/325 1 TAB TABLET PO (20:48)
[2018-02-16] MEDS: DARBEPOETIN ALFA 60 MCG/0.3 ML DISP.SYRIN. SQ (20:48)
[2018-02-17 02:31] LABS: POC GLUCOSE 102 mg/dL (70-99)
[2018-02-17] MEDS: oxyCODONE/APAP 5/325 1 TAB TABLET PO ×2 (02:37→21:48)
[2018-02-17 05:58] LABS: ADD MAN DIFF? NO
[2018-02-17 06:43] LABS: ALBUMIN 2.3 g/dL (3.4-5.0); ALBUMIN/GLOBULIN RATIO 0.5 (1.0-1.7); ALK PHOS 103 U/L (46-116); ALT (SGPT) 18 U/L (14-59); ANION GAP 10 (6-14); AST (SGOT) 26 U/L (15-37); BLOOD UREA NITROGEN 45 mg/dL (7-20); BUN/CREATININE RATIO 6 (6-20); CALCIUM 8.6 mg/dL (8.5-10.1); CARBON DIOXIDE 28 mmol/L (21-32); CHLORIDE 99 mmol/L (98-107); CREATININE 7.1 mg/dL (0.6-1.0); GLUCOSE 76 mg/dL (70-99); POTASSIUM 4.7 mmol/L (3.5-5.1); SODIUM 137 mmol/L (136-145); TOTAL BILIRUBIN 0.4 mg/dL (0.2-1.0); TOTAL PROTEIN 6.8 g/dL (6.4-8.2)
[2018-02-17 07:39] LABS: BASO % 0 % (0-3); EOS # 0.3 x10^3/uL (0.0-0.7); EOS % 4 % (0-3); HEMATOCRIT 28.9 % (36.0-47.0); HEMOGLOBIN 9.3 g/dL (12.0-15.5); LYMPH # 1.5 x10^3/uL (1.0-4.8); LYMPH % 18 % (24-48); MEAN CORPUSCULAR HEMOGLOBIN 28 pg (25-35); MEAN CORPUSCULAR HGB CONC 32 g/dL (31-37); MEAN CORPUSCULAR VOLUME 88 fL (79-100); MONO # 1.2 x10^3/uL (0.0-1.1); MONO % 15 % (0-9); NEUT % 62 % (31-73); PLATELET COUNT 210 x10^3/uL (140-400); RED CELL DISTRIBUTION WIDTH 18.2 % (11.5-14.5); WHITE BLOOD COUNT 8.1 x10^3/uL (4.0-11.0)
[2018-02-17 07:58] LABS: POC GLUCOSE 87 mg/dL (70-99)
[2018-02-17] MEDS: SEVELAMER CARBONATE 800 MG TABLET. PO ×4 (08:30→17:30)
[2018-02-17] MEDS: LISINOPRIL 20 MG TABLET PO (09:00)
[2018-02-17] MEDS: ASPIRIN 325 MG TABLET PO (09:00)
[2018-02-17] MEDS: amLODIPine BESYLATE 5 MG TABLET PO (09:00)
[2018-02-17] MEDS: FAMOTIDINE 20 MG TABLET. PO (09:00)
[2018-02-17] MEDS ORDERED: IODIXANOL 320 MG/ML 100 ML VIAL. ×2 (09:13→11:23)
[2018-02-17] MEDS ORDERED: MIDAZOLAM HCL/PF 2 MG/2 ML VIAL. (09:14)
[2018-02-17] MEDS ORDERED: HEPARIN for IV BOLUS 10,000 UNIT/10 ML VIAL. (09:14)
[2018-02-17] MEDS ORDERED: LIDOCAINE WITH 8.4% SOD BICARB 3 ML DISP.SYRIN. (09:14)
[2018-02-17] MEDS ORDERED: fentaNYL PF VIAL 100 MCG/2 ML VIAL (09:14)
[2018-02-17] MEDS ORDERED: diphenhydrAMINE 50 MG/ML VIAL (09:43)
[2018-02-17] MEDS ORDERED: hydrALAZINE 20 MG/ML VIAL. (11:12)
[2018-02-17] MEDS ORDERED: IODIXANOL 320MG/ML 50ML VIAL. (12:21)
[2018-02-17] MEDS ORDERED: CONTRAST GIVEN. MC (12:30)
[2018-02-17] MEDS: IODIXANOL 320 MG/ML 100 ML VIAL. IART (12:33)
[2018-02-17] MEDS: IODIXANOL 320MG/ML 50ML VIAL. IV (12:33)
[2018-02-17] MEDS: fentaNYL PF VIAL 100 MCG/2 ML VIAL IV (12:34)
[2018-02-17] MEDS: hydrALAZINE 20 MG/ML VIAL. IVP (12:35)
[2018-02-17] MEDS: MIDAZOLAM HCL/PF 2 MG/2 ML VIAL. IV (12:36)
[2018-02-17] MEDS: diphenhydrAMINE 50 MG/ML VIAL IVP (12:36)
[2018-02-17] MEDS: LIDOCAINE WITH 8.4% SOD BICARB 3 ML DISP.SYRIN. IJ (12:36)
[2018-02-17] MEDS: HEPARIN for IV BOLUS 10,000 UNIT/10 ML VIAL. IV (12:39)
[2018-02-17] MEDS: ALTEPLASE IV (12:40)
[2018-02-17] MEDS: NORMAL SALINE IV (12:40)
[2018-02-17] MEDS ORDERED: IV NORMAL SALINE 1000ML BAG 1,000 ML IV ×2 (14:01)
[2018-02-17] MEDS ORDERED: DIALYSIS PATIENT. MC ×2 (14:15)
[2018-02-17] MEDS: ATORVASTATIN CALCIUM 20 MG TABLET PO (21:48)
[2018-02-17] MEDS: MONTELUKAST SODIUM 10 MG TABLET. PO (21:48)
[2018-02-17] MEDS: cycloSPORINE 0.05% OPTH 1 DROP DROPERETTE OU (21:48)
[2018-02-17] MEDS: LATANOPROST 0.005% OPHTH SOLUTION 2.5ML BOTTLE. OU (21:49)
[2018-02-18 07:48] LABS: POC GLUCOSE 74 mg/dL (70-99)
[2018-02-18] MEDS: SEVELAMER CARBONATE 800 MG TABLET. PO ×2 (09:25→13:17)
[2018-02-18] MEDS: ASPIRIN 325 MG TABLET PO (09:25)
[2018-02-18] MEDS: oxyCODONE/APAP 5/325 1 TAB TABLET PO (09:26)
[2018-02-18] MEDS: amLODIPine BESYLATE 5 MG TABLET PO (09:27)
[2018-02-18] MEDS: LISINOPRIL 20 MG TABLET PO (09:27)
[2018-02-18] MEDS: FAMOTIDINE 20 MG TABLET. PO (09:30)
[2018-02-18 12:01] LABS: POC GLUCOSE 210 mg/dL (70-99)
[2018-02-21] MEDS ORDERED: ERGOCALCIFEROL (VITAMIN D2) 50,000 UNIT CAPSULE. PO (09:00)
[2018-02-21 10:45] LABS: POC GLUCOSE 100 mg/dL (70-99)
[2018-02-21 10:45] LABS: POC GLUCOSE 66 mg/dL (70-99)
[2018-02-21 10:45] LABS: POC GLUCOSE 57 mg/dL (70-99)
[2018-02-21 10:45] LABS: POC GLUCOSE 98 mg/dL (70-99)
[2018-02-21 10:45] LABS: POC GLUCOSE 112 mg/dL (70-99)
[2018-02-21 10:45] LABS: POC GLUCOSE 53 mg/dL (70-99)
== END 2018-02-18 14:00 | disposition home or self-care (01) | DRG 252 ==
LOC: ER 08:42 → 4 NORTH 12:10 → 6 SOUTH 16:00
PROC: 5A1D70Z Performance of Urinary Filtration, Intermittent, Less than 6 Hours Per Day (ICD-10-PCS; 2018-02-15)
PROC: 05CY3ZZ Extirpation of Matter from Upper Vein, Percutaneous Approach (ICD-10-PCS; principal; 2018-02-17)
PROC: 057Y3ZZ Dilation of Upper Vein, Percutaneous Approach (ICD-10-PCS; 2018-02-17)
PROC: 03CY3ZZ Extirpation of Matter from Upper Artery, Percutaneous Approach (ICD-10-PCS; 2018-02-17)
PROC: 037Y3ZZ Dilation of Upper Artery, Percutaneous Approach (ICD-10-PCS; 2018-02-17)
PROC: 3E03317 Introduction of Other Thrombolytic into Peripheral Vein, Percutaneous Approach (ICD-10-PCS; 2018-02-17)
PROC: 3E05317 Introduction of Other Thrombolytic into Peripheral Artery, Percutaneous Approach (ICD-10-PCS; 2018-02-17)
PROC: B244ZZZ Ultrasonography of Right Heart (ICD-10-PCS; 2018-02-17)
PROC: B2141ZZ Fluoroscopy of Right Heart using Low Osmolar Contrast (ICD-10-PCS; 2018-02-17)
PROC: 5A1D70Z Performance of Urinary Filtration, Intermittent, Less than 6 Hours Per Day (ICD-10-PCS; 2018-02-17)
PROC: 02H633Z Insertion of Infusion Device into Right Atrium, Percutaneous Approach (ICD-10-PCS; 2018-02-17)
DX: T82.868A Thrombosis due to vascular prosthetic devices, implants and grafts, initial encounter (principal); N18.6 End stage renal disease; E43 Unspecified severe protein-calorie malnutrition; G93.41 Metabolic encephalopathy; I12.0 Hypertensive chronic kidney disease with stage 5 chronic kidney disease or end stage renal disease; E87.6 Hypokalemia; E11.21 Type 2 diabetes mellitus with diabetic nephropathy; E11.319 Type 2 diabetes mellitus with unspecified diabetic retinopathy without macular edema; Z99.2 Dependence on renal dialysis; Z88.1 Allergy status to other antibiotic agents; Z88.2 Allergy status to sulfonamides; E11.22 Type 2 diabetes mellitus with diabetic chronic kidney disease; E87.5 Hyperkalemia; Z86.73 Personal history of transient ischemic attack (TIA), and cerebral infarction without residual deficits; H54.8 Legal blindness, as defined in USA; H40.9 Unspecified glaucoma; E78.5 Hyperlipidemia, unspecified; Z96.659 Presence of unspecified artificial knee joint; Z83.3 Family history of diabetes mellitus; Z84.1 Family history of disorders of kidney and ureter; G89.4 Chronic pain syndrome; M19.90 Unspecified osteoarthritis, unspecified site; J44.9 Chronic obstructive pulmonary disease, unspecified; F41.9 Anxiety disorder, unspecified; F32.9 Major depressive disorder, single episode, unspecified; E21.3 Hyperparathyroidism, unspecified; Z82.49 Family history of ischemic heart disease and other diseases of the circulatory system; Z88.6 Allergy status to analgesic agent; D64.9 Anemia, unspecified; Y83.2 Surgical operation with anastomosis, bypass or graft as the cause of abnormal reaction of the patient, or of later complication, without mention of misadventure at the time of the procedure; W19.XXXA Unspecified fall, initial encounter; I72.8 Aneurysm of other specified arteries; Q27.31 Arteriovenous malformation of vessel of upper limb
CPT/HCPCS: 36415; 36556; 36901; 36905; 71045; 73110; 76937; 77001; 80053; 82962; 85025; 85610; 93005; 93971; 96372; 97163-GP; 97166-GO; 99152; 99153; 99285; 99285-25; A4215; C1713; C1757; C1758; C1769; C1892; C1894; G0480; J0360; J0881; J1200; J1644; J2250; J2997; J3010; Q0162

== ENCOUNTER 2018-03-03 01:12 | Inpatient (IN) | payer MEDICARE, OTHER ==
[2018-03-03] MEDS: fentaNYL PF VIAL 100 MCG/2 ML VIAL IV (02:05)
[2018-03-03 02:53] LABS: ADD MAN DIFF? NO
[2018-03-03 02:57] LABS: BASO # 0.1 x10^3/uL (0.0-0.2); BASO % 1 % (0-3); EOS # 0.2 x10^3/uL (0.0-0.7); EOS % 2 % (0-3); HEMATOCRIT 27.8 % (36.0-47.0); HEMOGLOBIN 9.1 g/dL (12.0-15.5); LYMPH # 1.7 x10^3/uL (1.0-4.8); LYMPH % 16 % (24-48); MEAN CORPUSCULAR HEMOGLOBIN 29 pg (25-35); MEAN CORPUSCULAR HGB CONC 33 g/dL (31-37); MEAN CORPUSCULAR VOLUME 89 fL (79-100); MONO # 0.9 x10^3/uL (0.0-1.1); MONO % 9 % (0-9); NEUT # 7.3 x10^3uL (1.8-7.7); NEUT % 72 % (31-73); PLATELET COUNT 278 x10^3/uL (140-400); RED BLOOD COUNT 3.14 x10^6/uL (3.50-5.40); RED CELL DISTRIBUTION WIDTH 20.8 % (11.5-14.5); WHITE BLOOD COUNT 10.2 x10^3/uL (4.0-11.0)
[2018-03-03 03:03] LABS: ANION GAP 20 (6-14); BLOOD UREA NITROGEN 113 mg/dL (7-20); CALCIUM 7.9 mg/dL (8.5-10.1); CARBON DIOXIDE 21 mmol/L (21-32); CHLORIDE 101 mmol/L (98-107); CREATININE 11.6 mg/dL (0.6-1.0); GLUCOSE 63 mg/dL (70-99); SODIUM 142 mmol/L (136-145)
[2018-03-03 03:07] LABS: POTASSIUM 7.9 mmol/L (3.5-5.1)
[2018-03-03 03:26] LABS: MAGNESIUM 2.7 mg/dL (1.8-2.4)
[2018-03-03 03:26] LABS: INR 1.2 (0.8-1.1); PARTIAL THROMBOPLASTIN TIME 35 SEC (24-38); PROTHROMBIN TIME PATIENT 14.6 SEC (11.7-14.0)
[2018-03-03] MEDS: CALCIUM GLUCONATE 1,000 MG/10 ML VIAL. IVP (03:40)
[2018-03-03] MEDS: INSULIN REGULAR 100 UNIT/ML 3ML VIAL. IV (03:42)
[2018-03-03] MEDS: DEXTROSE 50% 25 GM / 50ML DISP.SYRIN. IV ×2 (03:43→06:10)
[2018-03-03 04:25] LABS: ANISOCYTOSIS MOD; PLT ESTIMATE ADEQUATE (ADEQUATE)
[2018-03-03] MEDS: IV NORMAL SALINE 500ML BAG 500 ML IV (04:45)
[2018-03-03] MEDS ORDERED: fentaNYL PF VIAL 100 MCG/2 ML VIAL IV ×2 (04:45→09:00)
[2018-03-03] MEDS ORDERED: ONDANSETRON PF 4 MG/2 ML VIAL. IV ×2 (04:45→09:00)
[2018-03-03 05:18] LABS: ANION GAP 20 (6-14); BLOOD UREA NITROGEN 114 mg/dL (7-20); CALCIUM 7.8 mg/dL (8.5-10.1); CARBON DIOXIDE 21 mmol/L (21-32); CHLORIDE 105 mmol/L (98-107); CREATININE 11.7 mg/dL (0.6-1.0); GFR 3.9; GLUCOSE 56 mg/dL (70-99); PHOSPHORUS 6.8 mg/dL (2.6-4.7); SODIUM 146 mmol/L (136-145)
[2018-03-03 05:19] LABS: POTASSIUM 6.1 mmol/L (3.5-5.1)
[2018-03-03] MEDS: CALCIUM GLUCONATE 1,000 MG in IV DEXTROSE 5% 100ML 100 ML IV (06:37)
[2018-03-03] MEDS ORDERED: IV NORMAL SALINE 1000ML BAG 1,000 ML IV ×2 (06:46)
[2018-03-03] MEDS ORDERED: ALBUMIN HUMAN 25% 200 ML IV (07:00)
[2018-03-03] MEDS ORDERED: DIALYSIS PATIENT. MC ×2 (07:00)
[2018-03-03] MEDS: SEVELAMER CARBONATE 800 MG TABLET. PO ×4 (08:00→17:37)
[2018-03-03] MEDS: FOLIC/VIT B COMP W-C (RENAL) TABLET. PO (12:37)
[2018-03-03] MEDS: FAMOTIDINE 20 MG TABLET. PO ×2 (12:37→17:40)
[2018-03-03] MEDS: amLODIPine BESYLATE 5 MG TABLET PO (13:17)
[2018-03-03] MEDS: LISINOPRIL 20 MG TABLET PO (13:18)
[2018-03-03] MEDS: ASPIRIN 325 MG TABLET PO (13:20)
[2018-03-03 17:11] LABS: POC GLUCOSE 99 mg/dL (70-99)
[2018-03-03] MEDS: oxyCODONE/APAP 5/325 1 TAB TABLET PO ×2 (19:14→23:26)
[2018-03-03] MEDS: MONTELUKAST SODIUM 10 MG TABLET. PO (21:38)
[2018-03-03] MEDS: ATORVASTATIN CALCIUM 20 MG TABLET PO (21:38)
[2018-03-03] MEDS: cycloSPORINE 0.05% OPTH 1 DROP DROPERETTE OU (21:38)
[2018-03-03] MEDS: LATANOPROST 0.005% OPHTH SOLUTION 2.5ML BOTTLE. OU (21:38)
[2018-03-04] MEDS: oxyCODONE/APAP 5/325 1 TAB TABLET PO ×2 (03:55→21:10)
[2018-03-04 06:19] LABS: ADD MAN DIFF? NO
[2018-03-04 06:24] LABS: BASO % 0 % (0-3); EOS # 0.3 x10^3/uL (0.0-0.7); EOS % 4 % (0-3); HEMATOCRIT 26.6 % (36.0-47.0); HEMOGLOBIN 8.7 g/dL (12.0-15.5); LYMPH # 1.2 x10^3/uL (1.0-4.8); LYMPH % 18 % (24-48); MEAN CORPUSCULAR HEMOGLOBIN 29 pg (25-35); MEAN CORPUSCULAR HGB CONC 33 g/dL (31-37); MEAN CORPUSCULAR VOLUME 88 fL (79-100); MONO # 0.8 x10^3/uL (0.0-1.1); MONO % 12 % (0-9); NEUT # 4.5 x10^3uL (1.8-7.7); NEUT % 66 % (31-73); PLATELET COUNT 251 x10^3/uL (140-400); RED BLOOD COUNT 3.01 x10^6/uL (3.50-5.40); RED CELL DISTRIBUTION WIDTH 21.1 % (11.5-14.5); WHITE BLOOD COUNT 6.8 x10^3/uL (4.0-11.0)
[2018-03-04 06:46] LABS: ALBUMIN 2.2 g/dL (3.4-5.0); ALBUMIN/GLOBULIN RATIO 0.6 (1.0-1.7); ALK PHOS 91 U/L (46-116); ALT (SGPT) 27 U/L (14-59); ANION GAP 11 (6-14); AST (SGOT) 47 U/L (15-37); BLOOD UREA NITROGEN 58 mg/dL (7-20); BUN/CREATININE RATIO 8 (6-20); CALCIUM 7.8 mg/dL (8.5-10.1); CARBON DIOXIDE 29 mmol/L (21-32); CHLORIDE 104 mmol/L (98-107); CREATININE 7.1 mg/dL (0.6-1.0); GLUCOSE 67 mg/dL (70-99); POTASSIUM 5.8 mmol/L (3.5-5.1); SODIUM 144 mmol/L (136-145); TOTAL BILIRUBIN 0.3 mg/dL (0.2-1.0); TOTAL PROTEIN 6.1 g/dL (6.4-8.2)
[2018-03-04] MEDS: SEVELAMER CARBONATE 800 MG TABLET. PO ×3 (08:51→17:00)
[2018-03-04] MEDS: LISINOPRIL 20 MG TABLET PO (08:52)
[2018-03-04] MEDS: FOLIC/VIT B COMP W-C (RENAL) TABLET. PO (08:52)
[2018-03-04] MEDS: ASPIRIN 325 MG TABLET PO (08:52)
[2018-03-04] MEDS: amLODIPine BESYLATE 5 MG TABLET PO (08:52)
[2018-03-04] MEDS: LATANOPROST 0.005% OPHTH SOLUTION 2.5ML BOTTLE. OU (21:09)
[2018-03-04] MEDS: cycloSPORINE 0.05% OPTH 1 DROP DROPERETTE OU (21:09)
[2018-03-04] MEDS: MONTELUKAST SODIUM 10 MG TABLET. PO (21:10)
[2018-03-04] MEDS: ATORVASTATIN CALCIUM 20 MG TABLET PO (21:10)
[2018-03-05] MEDS: SEVELAMER CARBONATE 800 MG TABLET. PO ×3 (08:08→14:31)
[2018-03-05] MEDS: FOLIC/VIT B COMP W-C (RENAL) TABLET. PO (08:08)
[2018-03-05] MEDS: oxyCODONE/APAP 5/325 1 TAB TABLET PO (08:09)
[2018-03-05] MEDS: LISINOPRIL 20 MG TABLET PO (08:10)
[2018-03-05] MEDS: ASPIRIN 325 MG TABLET PO (08:10)
[2018-03-05] MEDS: amLODIPine BESYLATE 5 MG TABLET PO (08:11)
[2018-03-05] MEDS ORDERED: IV NORMAL SALINE 1000ML BAG 1,000 ML IV ×2 (13:33)
[2018-03-05] MEDS ORDERED: diphenhydrAMINE 50 MG/ML VIAL IV ×2 (13:45)
[2018-03-05] MEDS ORDERED: DIALYSIS PATIENT. MC (13:45)
[2018-03-05] MEDS: FAMOTIDINE 20 MG TABLET. PO (14:31)
[2018-03-05 14:43] LABS: ADD MAN DIFF? NO
[2018-03-05 14:44] LABS: BASO # 0.1 x10^3/uL (0.0-0.2); BASO % 1 % (0-3); EOS # 0.3 x10^3/uL (0.0-0.7); EOS % 4 % (0-3); HEMATOCRIT 29.9 % (36.0-47.0); HEMOGLOBIN 9.8 g/dL (12.0-15.5); LYMPH # 0.7 x10^3/uL (1.0-4.8); LYMPH % 9 % (24-48); MEAN CORPUSCULAR HEMOGLOBIN 29 pg (25-35); MEAN CORPUSCULAR HGB CONC 33 g/dL (31-37); MEAN CORPUSCULAR VOLUME 88 fL (79-100); MONO # 0.9 x10^3/uL (0.0-1.1); MONO % 11 % (0-9); NEUT # 6.2 x10^3uL (1.8-7.7); NEUT % 75 % (31-73); PLATELET COUNT 303 x10^3/uL (140-400); RED BLOOD COUNT 3.42 x10^6/uL (3.50-5.40); RED CELL DISTRIBUTION WIDTH 20.8 % (11.5-14.5); WHITE BLOOD COUNT 8.3 x10^3/uL (4.0-11.0)
[2018-03-05 15:13] LABS: ANION GAP 15 (6-14); BLOOD UREA NITROGEN 73 mg/dL (7-20); CALCIUM 8.4 mg/dL (8.5-10.1); CARBON DIOXIDE 26 mmol/L (21-32); CHLORIDE 101 mmol/L (98-107); CREATININE 9.1 mg/dL (0.6-1.0); GFR 5.3; GLUCOSE 154 mg/dL (70-99); SODIUM 142 mmol/L (136-145)
[2018-03-05 15:17] LABS: POTASSIUM 6.8 mmol/L (3.5-5.1)
[2018-03-05 19:11] LABS: POTASSIUM 3.5 mmol/L (3.5-5.1)
[2018-03-05] MEDS: cycloSPORINE 0.05% OPTH 1 DROP DROPERETTE OU (22:18)
[2018-03-05] MEDS: ATORVASTATIN CALCIUM 20 MG TABLET PO (22:19)
[2018-03-05] MEDS: LATANOPROST 0.005% OPHTH SOLUTION 2.5ML BOTTLE. OU (22:19)
[2018-03-05] MEDS: MONTELUKAST SODIUM 10 MG TABLET. PO (22:19)
[2018-03-06 05:03] LABS: ANION GAP 10 (6-14); BLOOD UREA NITROGEN 27 mg/dL (7-20); CALCIUM 9.2 mg/dL (8.5-10.1); CARBON DIOXIDE 29 mmol/L (21-32); CHLORIDE 101 mmol/L (98-107); CREATININE 4.5 mg/dL (0.6-1.0); GFR 11.9; GLUCOSE 93 mg/dL (70-99); POTASSIUM 4.5 mmol/L (3.5-5.1); SODIUM 140 mmol/L (136-145)
[2018-03-06] MEDS: SEVELAMER CARBONATE 800 MG TABLET. PO ×2 (09:08→12:30)
[2018-03-06] MEDS: FOLIC/VIT B COMP W-C (RENAL) TABLET. PO (09:09)
[2018-03-06] MEDS: ASPIRIN 325 MG TABLET PO (09:09)
[2018-03-06] MEDS: LISINOPRIL 20 MG TABLET PO (09:09)
[2018-03-06] MEDS: amLODIPine BESYLATE 5 MG TABLET PO (09:09)
[2018-03-06] MEDS: oxyCODONE/APAP 5/325 1 TAB TABLET PO (09:11)
== END 2018-03-06 15:20 | DRG 640 ==
LOC: ER 01:12 → 2 SOUTH 03:10
PROC: 5A1D70Z Performance of Urinary Filtration, Intermittent, Less than 6 Hours Per Day (ICD-10-PCS; principal; 2018-03-03)
PROC: 5A1D70Z Performance of Urinary Filtration, Intermittent, Less than 6 Hours Per Day (ICD-10-PCS; 2018-03-05)
DX: E87.5 Hyperkalemia (principal); G93.41 Metabolic encephalopathy; N18.6 End stage renal disease; I12.0 Hypertensive chronic kidney disease with stage 5 chronic kidney disease or end stage renal disease; E46 Unspecified protein-calorie malnutrition; N25.81 Secondary hyperparathyroidism of renal origin; E11.22 Type 2 diabetes mellitus with diabetic chronic kidney disease; E78.5 Hyperlipidemia, unspecified; J44.9 Chronic obstructive pulmonary disease, unspecified; E11.42 Type 2 diabetes mellitus with diabetic polyneuropathy; F32.9 Major depressive disorder, single episode, unspecified; F41.9 Anxiety disorder, unspecified; M19.90 Unspecified osteoarthritis, unspecified site; H54.40 Blindness, one eye, unspecified eye; E11.319 Type 2 diabetes mellitus with unspecified diabetic retinopathy without macular edema; H40.9 Unspecified glaucoma; D63.1 Anemia in chronic kidney disease; Z96.653 Presence of artificial knee joint, bilateral; W18.2XXA Fall in (into) shower or empty bathtub, initial encounter; S80.211A Abrasion, right knee, initial encounter; Z82.49 Family history of ischemic heart disease and other diseases of the circulatory system; Z99.2 Dependence on renal dialysis; Z88.1 Allergy status to other antibiotic agents; Z88.3 Allergy status to other anti-infective agents; Z88.5 Allergy status to narcotic agent; Z88.2 Allergy status to sulfonamides; Z86.73 Personal history of transient ischemic attack (TIA), and cerebral infarction without residual deficits; Z87.891 Personal history of nicotine dependence; Z79.4 Long term (current) use of insulin; Y92.89 Other specified places as the place of occurrence of the external cause; Y99.8 Other external cause status; Y93.E1 Activity, personal bathing and showering; Z68.30 Body mass index [BMI] 30.0-30.9, adult; Z91.15 Patient's noncompliance with renal dialysis
CPT/HCPCS: 36415; 71045; 73502; 73552; 73562; 80048; 80053; 82962; 83735; 84100; 84132; 85025; 85610; 85730; 93005; 96361; 96374; 96375; 97110-GP; 97116-GP; 97162-GP; 97166-GO; 97535-GO; 99285; 99285-25; J0610; J1815; J3010; J7040; J7042

== ENCOUNTER 2018-08-19 13:11 | Emergency (ER) | payer MEDICARE, OTHER ==
[~2018-08-19] VITALS: Ht 160 cm; Wt 76.2 kg
[~2018-08-19 13:11] MED LIST changes: +AMLO5TAB10 PO; -AMLO5TAB2 PO; +CEFP200T PO; +GABA300C18 PO; +MONT10TA49 PO; -MONT10TA6 PO; -OXYC-323 PO; +OXYC1TAB15 PO
--- NOTE | 2018-08-19 13:32 | PHYS DOC ---
Past Medical History Past Medical History: Diabetes-Type II, Hypertension, Renal Failure Additional Past Medical Histor: DIALYSIS, CKD Past Surgical History: Other Additional Past Surgical Histo: DIALYSIS SHUNT LEFT ARM Alcohol Use: None Drug Use: None Adult General Chief Complaint Chief Complaint: MECHANICAL FALL [facility] Patient is a 68 year old female who presents with head injury. Patient normally resides in a wheelchair in a jail. Earlier today, the patient slid out of her wheelchair and fell to the ground. She struck her head on the floor. She did not have loss of consciousness. She presents to the ER complaining only of a generalized headache which is worse on the right side. No focal neuro complaints. No nausea or vomiting. Patient describes a mechanical type fall. No chest pain, syncope, palpitations, shortness of breath, or reported recent illness. Review of Systems Review of Systems Constitutional: Denies fever or chills Eyes: Denies change in visual acuity HENT: Denies neck pain Respiratory: Denies cough or shortness of breath Cardiovascular: No additional information not addressed in HPI GI: Denies abdominal pain, nausea, vomiting : Denies dysuria Musculoskeletal: Denies back pain Integument: Denies rash or skin lesions Neurologic: Denies focal neuro complaint Endocrine: Denies polyuria All other systems were reviewed and found to be within normal limits, except as documented in this note. Allergies Allergies Allergies Coded Allergies Type Severity Reaction Last Updated Verified codeine Allergy Intermediate 10/19/17 Yes neomycin Allergy Intermediate 10/19/17 Yes polymyxin B Allergy Intermediate 10/19/17 Yes sulfamethoxazole Allergy Intermediate 10/19/17 Yes trimethoprim Allergy Intermediate 10/19/17 Yes Physical Exam Physical Exam Constitutional: Well developed, well nourished, no acute distress, non-toxic appearance HENT: Normocephalic, no facial trauma. No bruising or contusions. No obvious injuries Neck: normal ROM. supple. no tenderness to palpation Cardiovascular:Heart rate regular rhythm, no murmur Lungs & Thorax: Bilateral breath sounds clear to auscultation Abdomen: Bowel sounds normal, soft, no tenderness Skin: Warm, dry Back: No tenderness Extremities: No tenderness or trauma seen Neurologic: Alert and oriented X 3, nonfocal neurologic examination Psychologic: Affect is agitated short, mildly aggressive towards staff members Current Patient Data Vital Signs Vital Signs Date Time Temp Pulse Resp B/P (MAP) Pulse Ox O2 Delivery O2 Flow Rate FiO2 08/19/18 14:30 75 18 100 08/19/18 13:36 98.6 123/60 (81) Room Air 98.6 EKG EKG [] Radiology/Procedures Radiology/Procedures [] Course & Med Decision Making Course & Med Decision Making Pertinent Labs and Imaging studies reviewed. (See chart for details) 13:30: Patient is seen and examined. No obvious trauma. Patient has multiple complaints of chronic pain in her shoulders and right arm but the only acute complaint she has after her fall is a headache. Patient states she did not have loss of consciousness. She is overall not cooperative. 15:00: CT scan is returned with no acute findings. Patient will be discharged back to the jail. During her ED course, she had no palpitations. Her vital signs are stable. Again, no signs of trauma on her physical exam. Dragon Disclaimer Dragon Disclaimer This electronic medical record was generated, in whole or in part, using a voice recognition dictation system. Departure Departure Disposition: 01 HOME, SELF-CARE Condition: GOOD Referrals: ESPERANZA JENNINGS MD (PCP) SAMMI CASANOVA DO Aug 19, 2018 13:32
--- NOTE | 2018-08-19 14:44 | RAD ---
CT scan of the head without contrast 08/19/2018 Clinical History: Fall with head injury. Technique: Unenhanced, contiguous, 5 mm axial sections were obtained through the head. One or more of the following individualized dose reduction techniques were utilized for this study: 1. Automated exposure control. 2. Adjustment of the mA and/or kV according to patient size. 3. Use of iterative reconstruction technique. Findings: Comparison study is dated 12/11/2017. There is generalized parenchymal atrophy. Areas of decreased attenuation are seen within the periventricular and subcortical white matter of both cerebral hemispheres consistent with areas of small vessel ischemic disease. No acute parenchymal abnormality is seen. No extra-axial fluid collection is noted. No skull fracture is seen. Impression: No acute intracranial abnormality is seen. CT scan of the cervical spine without contrast 08/19/2018 Clinical history: Neck injury post fall. Technique: Unenhanced, contiguous, 0.625 mm axial sections were obtained through the cervical spine. Axial, coronal and sagittal reconstructed images were obtained. One or more of the following individualized dose reduction techniques were utilized for this study: 1. Automated exposure control. 2. Adjustment of the mA and/or kV according to patient size. 3. Use of iterative reconstruction technique. Findings: Sagittal and coronal reconstructed images demonstrate mild lateral curvature of the cervical spine, convex to the left. Degenerative changes consisting of disc space narrowing, vertebral endplate sclerosis and mild to moderate anterior vertebral body osteophyte formation are seen involving the lower cervical disc spaces. Atherosclerotic calcification is seen in the region carotid bifurcations bilaterally. No fracture or subluxation of the cervical vertebrae is seen. Degenerative changes are seen involving the uncovertebral and facet joints throughout the cervical disc spaces. Impression: No fracture or subluxation of the cervical vertebra is identified. Electronically signed by: Crispin Doss MD (08/19/2018 2:40 PM) [id number]
[2018-08-19 15:30] VITALS: BP 115/59
== END 2018-08-19 15:50 | disposition home or self-care (01) ==
LOC: ER 13:11
DX: S09.90XA Unspecified injury of head, initial encounter (principal); R51 Headache; G89.29 Other chronic pain; M79.601 Pain in right arm; M25.511 Pain in right shoulder; M25.512 Pain in left shoulder; I12.0 Hypertensive chronic kidney disease with stage 5 chronic kidney disease or end stage renal disease; E11.22 Type 2 diabetes mellitus with diabetic chronic kidney disease; N18.6 End stage renal disease; Z99.2 Dependence on renal dialysis; Z88.1 Allergy status to other antibiotic agents; Z88.2 Allergy status to sulfonamides; Z88.5 Allergy status to narcotic agent; Z88.8 Allergy status to other drugs, medicaments and biological substances; W05.0XXA Fall from non-moving wheelchair, initial encounter; Y93.89 Activity, other specified; Y92.89 Other specified places as the place of occurrence of the external cause; Y99.8 Other external cause status
CPT/HCPCS: 70450; 72125; 99284-25